=== PATIENT | female | born 1970 | race Caucasian/White ===

== ENCOUNTER → 2016-06-19 | Outpatient (REF) | payer BC ==
[~2016-06-19] MED LIST: /ESCI10TA OR; /PANT40TA OR; /SUCR1TA OR; ALEN70TA39 PO; CALC500T49 OR; CALCCHW12 OR; FERR325T OR; LEVO25TA5 PO; LEVO25TABR OR; LEXA1TAB PO; MULT1TAB10 PO; MULTIVIT PO; OMEP40CA2 PO; PERC5TAB6 PO; POTA10CA2 OR; PRIL40CA OR; PRIL40CA PO; PROZ20CA OR; PYRI100T2 PO; Prenatal Vitamin PO; TUMS500C PO; TYLE1TAB5 PO; VITA1CAP7 PO; VITA500C OR; VITA50TA PO
[2016-06-19 18:00] LABS: BASO # 0.1 K/mm3 (0.0-0.2); BASO % 0.9 % (0.0-1.0); EOS # 0.2 K/mm3 (0.0-0.50); EOS % 3.5 % (0.0-3.0); LARGE UNSTAINED CELL # 0.1 K/mm3 (0.0-0.4); LARGE UNSTAINED CELL % 1.8 % (0.0-4.0); LYMPH # 2.2 K/mm3 (1.5-4.5); LYMPH % 27.7 % (24.0-44.0); MEAN CORPUSCULAR HEMOGLOBIN 30.3 pg (27.0-33.0); MEAN CORPUSCULAR HGB CONC 34.8 g/dl (32.0-36.5); MEAN CORPUSCULAR VOLUME 86.9 fl (80.0-96.0); MONO # 0.5 K/mm3 (0.0-0.8); NEUTROPHILS # 4.3 K/mm3 (1.8-7.7); NEUTROPHILS % 59.1 % (36.0-66.0); PLATELET COUNT, AUTOMATED 293 k/mm3 (150-450); RED CELL DISTRIBUTION WIDTH 12.5 % (11.5-14.5); WHITE BLOOD COUNT 7.3 K/mm3 (4.0-10.0)
[2016-06-19 18:07] LABS: ALBUMIN 4.3 GM/DL (3.2-5.2); ALBUMIN/GLOBULIN RATIO 1.39 (1.00-1.93); ALKALINE PHOSPHATASE 63 U/L (45-117); ALT/SGPT 15 U/L (12-78); ANION GAP 9 MEQ/L (8-16); AST/SGOT 25 U/L (15-37); BILIRUBIN,TOTAL 0.6 MG/DL (0.2-1.0); BLOOD UREA NITROGEN 14 MG/DL (7-18); CALCIUM LEVEL 9.3 MG/DL (8.5-10.1); CARBON DIOXIDE LEVEL 34 MEQ/L (21-32); CHLORIDE LEVEL 93 MEQ/L (98-107); CREATININE FOR GFR 0.66 MG/DL (0.55-1.02); FERRITIN 103 NG/ML (8-252); FREE T4 1.03 NG/DL (0.76-1.46); GLOMERULAR FILTRATION RATE > 60.0 (>58); GLUCOSE, FASTING 97 MG/DL (70-105); PERCENT SATURATION 16.3 % (13.2-37.4); SODIUM LEVEL 136 MEQ/L (136-145); TOTAL IRON BINDING CAPACITY 399 UG/DL (250-450); TOTAL PROTEIN 7.4 GM/DL (6.4-8.2)
[2016-06-19 18:54] LABS: POTASSIUM SERUM 2.8 MEQ/L (3.5-5.1)
== END ==
LOC: M SFHCPLAZ 15:15
PROVIDERS: ATTEND Family Medicine
DX: D50.9 Iron deficiency anemia, unspecified (principal); E55.9 Vitamin D deficiency, unspecified; E03.9 Hypothyroidism, unspecified; Z98.84 Bariatric surgery status

== ENCOUNTER → 2016-06-21 | Outpatient (CLI) | payer BC ==
[2016-06-21 07:38] LABS: ANION GAP 9 MEQ/L (8-16); BLOOD UREA NITROGEN 18 MG/DL (7-18); CALCIUM LEVEL 8.6 MG/DL (8.5-10.1); CARBON DIOXIDE LEVEL 30 MEQ/L (21-32); CHLORIDE LEVEL 101 MEQ/L (98-107); CREATININE FOR GFR 0.62 MG/DL (0.55-1.02); GLOMERULAR FILTRATION RATE > 60.0 (>58); GLUCOSE, FASTING 102 MG/DL (70-105); MAGNESIUM LEVEL 2.4 MG/DL (1.8-2.4); POTASSIUM SERUM 3.3 MEQ/L (3.5-5.1); SODIUM LEVEL 140 MEQ/L (136-145)
== END ==
LOC: M LAB 06:34
PROVIDERS: ATTEND Physician Assistant
DX: E87.6 Hypokalemia (principal)

== ENCOUNTER → 2016-06-28 | Outpatient (REF) | payer BC ==
[~2016-06-28] MED LIST changes: +POTA20TA PO
[2016-06-28 17:35] LABS: ANION GAP 6 MEQ/L (8-16); BLOOD UREA NITROGEN 17 MG/DL (7-18); CALCIUM LEVEL 8.8 MG/DL (8.5-10.1); CARBON DIOXIDE LEVEL 29 MEQ/L (21-32); CHLORIDE LEVEL 102 MEQ/L (98-107); CREATININE FOR GFR 0.55 MG/DL (0.55-1.02); GLOMERULAR FILTRATION RATE > 60.0 (>58); GLUCOSE, FASTING 77 MG/DL (70-105); MAGNESIUM LEVEL 2.6 MG/DL (1.8-2.4); POTASSIUM SERUM 3.9 MEQ/L (3.5-5.1); SODIUM LEVEL 137 MEQ/L (136-145)
== END ==
LOC: M SFHCPLAZ 14:38
PROVIDERS: ATTEND Family Medicine
DX: K27.9 Peptic ulcer, site unspecified, unspecified as acute or chronic, without hemorrhage or perforation (principal); E87.6 Hypokalemia

== ENCOUNTER → 2016-08-19 | Outpatient (REF) | payer BC | LOC: M LAB REF 12:16 | PROVIDERS: ATTEND Family Medicine | DX: L03.114 Cellulitis of left upper limb (principal) ==

== ENCOUNTER → 2016-09-19 | Outpatient (REF) | payer BC ==
[~2016-09-19] MED LIST changes: +PERC5TAB12 PO; -PERC5TAB6 PO
[2016-09-19 19:39] LABS: PERCENT SATURATION 10.8 % (13.2-37.4)
== END ==
LOC: M LAB REF 16:28
PROVIDERS: ATTEND Internal Medicine Medical Oncology
DX: D64.9 Anemia, unspecified (principal)

== ENCOUNTER → 2016-10-25 | Outpatient (REF) | payer BC ==
[2016-10-25 18:18] LABS: BASO # 0.1 K/mm3 (0.0-0.2); BASO % 0.9 % (0.0-1.0); EOS # 0.4 K/mm3 (0.0-0.50); EOS % 4.3 % (0.0-3.0); LARGE UNSTAINED CELL # 0.2 K/mm3 (0.0-0.4); LARGE UNSTAINED CELL % 1.8 % (0.0-4.0); LYMPH # 2.5 K/mm3 (1.5-4.5); LYMPH % 29.4 % (24.0-44.0); MEAN CORPUSCULAR HEMOGLOBIN 31.2 pg (27.0-33.0); MEAN CORPUSCULAR HGB CONC 34.8 g/dl (32.0-36.5); MEAN CORPUSCULAR VOLUME 89.6 fl (80.0-96.0); MONO # 0.4 K/mm3 (0.0-0.8); MONO % 5.1 % (0.0-5.0); NEUTROPHILS # 4.8 K/mm3 (1.8-7.7); NEUTROPHILS % 58.6 % (36.0-66.0); PLATELET COUNT, AUTOMATED 309 k/mm3 (150-450); RED CELL DISTRIBUTION WIDTH 12.6 % (11.5-14.5); WHITE BLOOD COUNT 8.2 K/mm3 (4.0-10.0)
[2016-10-25 19:03] LABS: ALBUMIN 4.5 GM/DL (3.2-5.2); ALBUMIN/GLOBULIN RATIO 1.36 (1.00-1.93); ALKALINE PHOSPHATASE 68 U/L (45-117); ALT/SGPT 15 U/L (12-78); ANION GAP 8 MEQ/L (8-16); AST/SGOT 22 U/L (15-37); BILIRUBIN,TOTAL 0.3 MG/DL (0.2-1.0); BLOOD UREA NITROGEN 13 MG/DL (7-18); CALCIUM LEVEL 8.8 MG/DL (8.5-10.1); CARBON DIOXIDE LEVEL 29 MEQ/L (21-32); CHLORIDE LEVEL 104 MEQ/L (98-107); CREATININE FOR GFR 0.71 MG/DL (0.55-1.02); FERRITIN 52 NG/ML (8-252); GLOMERULAR FILTRATION RATE > 60.0 (>58); GLUCOSE, FASTING 87 MG/DL (70-105); MAGNESIUM LEVEL 2.5 MG/DL (1.8-2.4); PERCENT SATURATION 13.6 % (13.2-45.0); POTASSIUM SERUM 3.8 MEQ/L (3.5-5.1); SODIUM LEVEL 141 MEQ/L (136-145); TOTAL IRON BINDING CAPACITY 434 UG/DL (250-450); TOTAL PROTEIN 7.8 GM/DL (6.4-8.2)
== END ==
LOC: M SFHCPLAZ 15:11
PROVIDERS: ATTEND Family Medicine
DX: R53.83 Other fatigue (principal)

== ENCOUNTER → 2016-12-20 | Outpatient (CLI) | payer BC ==
--- NOTE | 2016-12-20 13:27 | REP ---
Three-phase bone scan of the feet and ankles: History: Stress fracture on the right. Right foot pain. Comparison radiographs June 29, 2016. The patient is status post bunion repair first distal metatarsal. Technique: 22.0 mCi technetium 99m MDP is injected and standard three-phase imaging is acquired. Scintigraphic findings: The anterior and posterior flow study shows some hyperemia on the left forefoot compared to the right mild in degree. Blood pool images show very slightly asymmetric increased soft tissue uptake in the midfoot and MTP joint region on the right. Delayed scan images demonstrate focal areas of increased uptake in the right midfoot at approximately the second tarsometatarsal articulation as well as in the right bunion repair site distal first metatarsal and MTP joint region. There is increased uptake in the left MTP joint of the first digit as well. Impression: There is a focus of increased uptake in the right midfoot at the approximate second metatarsal tarsal articulation level which could be a stress response. Expected uptake in the distal first metatarsal on the right post recent bunion repair. Mild degenerative uptake in the left first MTP joint. Signed by Del Stern MD 12/20/2016 05:21 P
== END ==
LOC: M RAD 07:35
PROVIDERS: ATTEND Podiatrist
DX: M84.374A Stress fracture, right foot, initial encounter for fracture (principal)

== ENCOUNTER → 2017-04-09 | Outpatient (REF) | payer BC ==
[2017-04-09 11:45] LABS: IONIZED CALCIUM 4.6 MG/DL (4.5-5.3)
[2017-04-09 12:13] LABS: C REACTIVE PROTEIN QUANTITATIV < 0.30 MG/DL (0.00-0.30)
[2017-04-09 12:17] LABS: ERYTHROCYTE SEDIMENTATION RATE 7 mm/hr (0-20)
[2017-04-09 12:28] LABS: PTH INTACT 115.2 PG/ML (14.0-72.0)
== END ==
LOC: M SFHCPLAZ 11:32
DX: E34.9 Endocrine disorder, unspecified (principal); R51 Headache
CPT/HCPCS: 82330

== ENCOUNTER → 2017-04-09 | Outpatient (CLI) | payer BC | LOC: M RAD 18:01 | DX: R51 Headache (principal) | CPT/HCPCS: 70551 ==

== ENCOUNTER → 2017-04-10 | Outpatient (REF) | payer BC ==
[2017-04-10 10:54] LABS: BASO # 0.1 10^3/uL (0.0-0.2); BASO % 0.6 % (0.0-1.0); EOS # 0.1 10^3/uL (0.0-0.50); HEMATOCRIT 40.4 % (36.0-47.0); HEMOGLOBIN 13.7 g/dl (12.0-16.0); IMMATURE GRANULOCYTE % 0.3 % (0-0); LYMPH # 1.9 10^3/uL (1.5-4.5); LYMPH % 21.1 % (24.0-44.0); MEAN CORPUSCULAR HEMOGLOBIN 30.4 pg (27.0-33.0); MEAN CORPUSCULAR HGB CONC 33.9 g/dl (32.0-36.5); MEAN CORPUSCULAR VOLUME 89.6 fl (80.0-96.0); MONO # 0.5 10^3/uL (0.0-0.8); MONO % 5.9 % (0.0-5.0); NEUTROPHILS # 6.4 10^3/uL (1.8-7.7); NEUTROPHILS % 71.1 % (36.0-66.0); PLATELET COUNT, AUTOMATED 316 10^3/uL (150-450); RED BLOOD COUNT 4.51 10^6/uL (4.00-5.40); RED CELL DISTRIBUTION WIDTH 12.1 % (11.5-14.5); WHITE BLOOD COUNT 8.9 10^3/uL (4.0-10.0)
[2017-04-10 11:31] LABS: ALBUMIN 4.3 GM/DL (3.2-5.2); ALBUMIN/GLOBULIN RATIO 1.34 (1.00-1.93); ALKALINE PHOSPHATASE 64 U/L (45-117); ALT/SGPT 13 U/L (12-78); ANION GAP 7 MEQ/L (8-16); AST/SGOT 17 U/L (7-37); BILIRUBIN,TOTAL 0.5 MG/DL (0.2-1.0); BLOOD UREA NITROGEN 8 MG/DL (7-18); CALCIUM LEVEL 9.5 MG/DL (8.5-10.1); CARBON DIOXIDE LEVEL 29 MEQ/L (21-32); CHLORIDE LEVEL 104 MEQ/L (98-107); CHOLESTEROL LEVEL 224 MG/DL (<200); CHOLESTEROL RISK RATIO 2.765 (<5); CREATININE FOR GFR 0.54 MG/DL (0.55-1.02); ESTIMATED AVERAGE GLUCOSE 103 MG/DL (60-110); FERRITIN 31 NG/ML (8-252); FREE T4 0.95 NG/DL (0.76-1.46); GLOMERULAR FILTRATION RATE > 60.0 (>58); GLUCOSE, FASTING 84 MG/DL (70-100); HDL CHOLESTEROL 81 MG/DL (>40); HEMOGLOBIN A1c 5.2 %; IRON (FE) 85 UG/DL (50-170); LDL CHOLESTEROL 128.6 MG/DL (<100); MAGNESIUM LEVEL 2.4 MG/DL (1.8-2.4); NON-HDL-C 143 MG/DL; POTASSIUM SERUM 3.9 MEQ/L (3.5-5.1); SODIUM LEVEL 140 MEQ/L (136-145); TOTAL IRON BINDING CAPACITY 405 UG/DL (250-450); TOTAL PROTEIN 7.5 GM/DL (6.4-8.2); TRIGLYCERIDES LEVEL 72 MG/DL (<150)
[2017-04-10 12:15] LABS: PTH INTACT 65.1 PG/ML (14.0-72.0); TOTAL 25(OH) VITAMIN D 33.8 NG/ML (30.0-100.0)
== END ==
LOC: M SFHCPLAZ 09:26
DX: D50.9 Iron deficiency anemia, unspecified (principal); E87.6 Hypokalemia; E03.9 Hypothyroidism, unspecified; E55.9 Vitamin D deficiency, unspecified; E34.9 Endocrine disorder, unspecified; R51 Headache; Z98.84 Bariatric surgery status
CPT/HCPCS: 83550

== ENCOUNTER → 2017-07-22 | Outpatient (REF) | payer BC ==
[2017-07-22 19:30] LABS: BASO # 0.1 10^3/uL (0.0-0.2); BASO % 0.7 % (0.0-1.0); EOS # 0.2 10^3/uL (0.0-0.50); EOS % 2.6 % (0.0-3.0); HEMOGLOBIN 12.4 g/dl (12.0-15.5); IMMATURE GRANULOCYTE % 0.4 % (0-3.0); LYMPH # 2.5 10^3/uL (1.5-4.5); LYMPH % 30.6 % (24.0-44.0); MEAN CORPUSCULAR HEMOGLOBIN 30.8 pg (27.0-33.0); MEAN CORPUSCULAR HGB CONC 33.5 g/dl (32.0-36.5); MEAN CORPUSCULAR VOLUME 91.8 fl (80.0-96.0); MONO # 0.6 10^3/uL (0.0-0.8); MONO % 7.2 % (0.0-5.0); NEUTROPHILS # 4.7 10^3/uL (1.8-7.7); NEUTROPHILS % 58.5 % (36.0-66.0); PLATELET COUNT, AUTOMATED 297 10^3/uL (150-450); RED BLOOD COUNT 4.03 10^6/uL (4.00-5.40); RED CELL DISTRIBUTION WIDTH 12.8 % (11.5-14.5); WHITE BLOOD COUNT 8.1 10^3/uL (4.0-10.0)
[2017-07-22 19:31] LABS: ALBUMIN 4.1 GM/DL (3.2-5.2); ALBUMIN/GLOBULIN RATIO 1.41 (1.00-1.93); ALKALINE PHOSPHATASE 68 U/L (45-117); ALT/SGPT 12 U/L (12-78); AMYLASE 53 U/L (25-115); ANION GAP 4 MEQ/L (8-16); AST/SGOT 20 U/L (7-37); BILIRUBIN,DIRECT 0.1 MG/DL (0.0-0.2); BILIRUBIN,TOTAL 0.3 MG/DL (0.2-1.0); BLOOD UREA NITROGEN 15 MG/DL (7-18); CALCIUM LEVEL 8.7 MG/DL (8.5-10.1); CARBON DIOXIDE LEVEL 29 MEQ/L (21-32); CHLORIDE LEVEL 111 MEQ/L (98-107); CREATININE FOR GFR 0.56 MG/DL (0.55-1.30); GAMMA GLUTAMYLTRANSPEPTIDASE 23 U/L (5-55); GLOMERULAR FILTRATION RATE > 60.0 (>58); GLUCOSE, FASTING 84 MG/DL (70-100); LIPASE 193 U/L (73-393); POTASSIUM SERUM 4.2 MEQ/L (3.5-5.1); SODIUM LEVEL 144 MEQ/L (136-145)
== END ==
LOC: M SFHCPLAZ 15:42
DX: K27.9 Peptic ulcer, site unspecified, unspecified as acute or chronic, without hemorrhage or perforation (principal); R10.11 Right upper quadrant pain
CPT/HCPCS: 82150

== ENCOUNTER → 2017-08-02 | Outpatient (CLI) | payer BC | LOC: M RAD 06:45 | DX: R10.11 Right upper quadrant pain (principal); R07.81 Pleurodynia | CPT/HCPCS: 71046 ==

== ENCOUNTER → 2017-08-21 | Outpatient (CLI) | payer BC | LOC: M RAD 08:02 | DX: K81.9 Cholecystitis, unspecified (principal) | CPT/HCPCS: J2805 ==

== ENCOUNTER → 2017-09-10 | Outpatient (CLI) | payer BC ==
[~2017-09-10] MED LIST changes: -/ESCI10TA OR; -/PANT40TA OR; -/SUCR1TA OR; -ALEN70TA39 PO; -CALC500T49 OR; -CALCCHW12 OR; -FERR325T OR; +GASTROGRAFIN SOLUTION 30ML (Q9963) As Ordered; +ISOVUE-370 76% 100ML VIAL (Q9967) As Ordered; -LEVO25TA5 PO; -LEVO25TABR OR; -LEXA1TAB PO; -MULT1TAB10 PO; -MULTIVIT PO; -OMEP40CA2 PO; -PERC5TAB12 PO; -POTA10CA2 OR; -POTA20TA PO; -PRIL40CA OR; -PRIL40CA PO; -PROZ20CA OR; -PYRI100T2 PO; -Prenatal Vitamin PO; -TUMS500C PO; -TYLE1TAB5 PO; -VITA1CAP7 PO; -VITA500C OR; -VITA50TA PO
== END ==
LOC: M RAD 07:45
DX: K27.9 Peptic ulcer, site unspecified, unspecified as acute or chronic, without hemorrhage or perforation (principal)
CPT/HCPCS: Q9963

== ENCOUNTER 2017-12-12 07:48 | Day surgery (SDC) | payer BC ==
[~2017-12-12 07:48] MED LIST changes: -GASTROGRAFIN SOLUTION 30ML (Q9963) As Ordered; -ISOVUE-370 76% 100ML VIAL (Q9967) As Ordered; +LIDOCAINE 2% INJ 100 MG/5 ML SDV (FOR ANES.) As Ordered; +NS 1,000 ML IV; +PROPOFOL 200 MG/20 ML VIAL As Ordered
[2017-12-12] MEDS ORDERED: fentaNYL 100 MCG/2 ML INJECTION (J3010) As Ordered (08:42)
[2017-12-12] MEDS ORDERED: METOCLOPRAMIDE INJ 10MG/2ML VIAL (J2765) As Ordered (08:51)
== END 2017-12-12 09:22 | disposition home or self-care (01) ==
LOC: M OPP 07:48
DX: R13.10 Dysphagia, unspecified (principal); R10.13 Epigastric pain; R11.0 Nausea; Z98.84 Bariatric surgery status; Z98.0 Intestinal bypass and anastomosis status; E03.9 Hypothyroidism, unspecified; K92.2 Gastrointestinal hemorrhage, unspecified; K25.9 Gastric ulcer, unspecified as acute or chronic, without hemorrhage or perforation; K21.9 Gastro-esophageal reflux disease without esophagitis; R12 Heartburn; D64.9 Anemia, unspecified; Z86.14 Personal history of Methicillin resistant Staphylococcus aureus infection; F32.9 Major depressive disorder, single episode, unspecified; F41.9 Anxiety disorder, unspecified; G43.909 Migraine, unspecified, not intractable, without status migrainosus; J45.909 Unspecified asthma, uncomplicated; R06.83 Snoring; Z88.8 Allergy status to other drugs, medicaments and biological substances; Z91.048 Other nonmedicinal substance allergy status; Z79.899 Other long term (current) drug therapy
CPT/HCPCS: 43235

== ENCOUNTER → 2018-01-23 | Outpatient (CLI) | payer BC ==
[2018-01-23 10:34] LABS: BASO # 0.1 10^3/uL (0.0-0.2); BASO % 0.6 % (0.0-1.0); EOS # 0.2 10^3/uL (0.0-0.50); HEMATOCRIT 39.3 % (36.0-47.0); HEMOGLOBIN 12.9 g/dl (12.0-15.5); IMMATURE GRANULOCYTE % 0.3 % (0-3.0); LYMPH % 25.3 % (24.0-44.0); MEAN CORPUSCULAR HEMOGLOBIN 29.9 pg (27.0-33.0); MEAN CORPUSCULAR HGB CONC 32.8 g/dl (32.0-36.5); MEAN CORPUSCULAR VOLUME 91.2 fl (80.0-96.0); MONO # 0.5 10^3/uL (0.0-0.8); MONO % 6.4 % (0.0-5.0); NEUTROPHILS % 64.4 % (36.0-66.0); PLATELET COUNT, AUTOMATED 286 10^3/uL (150-450); RED BLOOD COUNT 4.31 10^6/uL (4.00-5.40); RED CELL DISTRIBUTION WIDTH 12.5 % (11.5-14.5); WHITE BLOOD COUNT 7.8 10^3/uL (4.0-10.0)
[2018-01-23 11:30] LABS: ALBUMIN/GLOBULIN RATIO 1.43 (1.00-1.93); ALKALINE PHOSPHATASE 65 U/L (45-117); ALT/SGPT 15 U/L (12-78); ANION GAP 7 MEQ/L (8-16); AST/SGOT 20 U/L (7-37); BILIRUBIN,TOTAL 0.5 MG/DL (0.2-1.0); BLOOD UREA NITROGEN 14 MG/DL (7-18); CALCIUM LEVEL 8.9 MG/DL (8.5-10.1); CARBON DIOXIDE LEVEL 26 MEQ/L (21-32); CHLORIDE LEVEL 106 MEQ/L (98-107); CHOLESTEROL LEVEL 233 MG/DL (<200); CHOLESTEROL RISK RATIO 3.328 (<5); CREATININE FOR GFR 0.61 MG/DL (0.55-1.30); FERRITIN 16 NG/ML (8-252); FREE T4 0.82 NG/DL (0.76-1.46); GLOMERULAR FILTRATION RATE > 60.0 (>58); GLUCOSE, FASTING 93 MG/DL (70-100); HDL CHOLESTEROL 70 MG/DL (>40); IRON (FE) 97 UG/DL (50-170); LDL CHOLESTEROL 141 MG/DL (<100); NON-HDL-C 163 MG/DL; PERCENT SATURATION 23.2 % (13.2-45.0); POTASSIUM SERUM 4.3 MEQ/L (3.5-5.1); PTH INTACT 128.6 PG/ML (18.5-88.0); SODIUM LEVEL 139 MEQ/L (136-145); TOTAL 25(OH) VITAMIN D 23.3 NG/ML (30.0-100.0); TOTAL IRON BINDING CAPACITY 418 UG/DL (250-450); TOTAL PROTEIN 6.8 GM/DL (6.4-8.2); TRIGLYCERIDES LEVEL 110 MG/DL (<150); VITAMIN B12 LEVEL 518 PG/ML
== END ==
LOC: M LAB 09:39
DX: D50.9 Iron deficiency anemia, unspecified (principal); E55.9 Vitamin D deficiency, unspecified; Z98.84 Bariatric surgery status
CPT/HCPCS: 82746

== ENCOUNTER → 2018-06-05 | Outpatient (CLI) | payer BC ==
[~2018-06-05] MED LIST changes: +/ESCI10TA OR; +/PANT40TA OR; +/SUCR1TA OR; +ALEN70TA57 PO; +CALC500T49 OR; +CALCCHW12 OR; +DULO1CAP PO; +E-Z-GAS II EFFERVESCENT PACKET (SODIUM BICARB./CITRIC ACID/SIMETHICONE) As Ordered ONE; +E-Z-HD 98% w/w 340GM SUSP BTL As Ordered ONE; +E-Z-PAQUE 96% w/w SUSP 176GM BTL As Ordered ONE; +FERR325T OR; +KLOR20TA42 PO; +LEVO25TA5 PO; +LEVO25TABR OR; +LEVO50TA5 PO; +LEXA1TAB PO; +LEXA1TAB2 PO; -LIDOCAINE 2% INJ 100 MG/5 ML SDV (FOR ANES.) As Ordered; +MULT1TAB10 PO; +MULTIVIT PO; -NS 1,000 ML IV; +OMEP40CA2 PO; +PERC5TAB12 PO; +POTA10CA2 OR; +PRIL40CA OR; +PRIL40CA PO; -PROPOFOL 200 MG/20 ML VIAL As Ordered; +PROZ20CA OR; +PYRI100T2 PO; +Prenatal Vitamin PO; +TOPI25TA10 PO; +TUMS500C PO; +TYLE1TAB5 PO; +VENTAER; +VITA1CAP7 PO; +VITA500C OR; +VITA50TA47 PO
== END ==
LOC: M RAD 10:59
PROVIDERS: ATTEND Surgery
DX: R13.10 Dysphagia, unspecified (principal)

== ENCOUNTER → 2018-06-05 | Outpatient (CLI) | payer BC ==
[~2018-06-05] MED LIST changes: -E-Z-GAS II EFFERVESCENT PACKET (SODIUM BICARB./CITRIC ACID/SIMETHICONE) As Ordered ONE; -E-Z-HD 98% w/w 340GM SUSP BTL As Ordered ONE; -E-Z-PAQUE 96% w/w SUSP 176GM BTL As Ordered ONE
[2018-06-05 12:15] LABS: BASO # 0.1 10^3/uL (0.0-0.2); BASO % 0.9 % (0.0-1.0); EOS # 0.1 10^3/uL (0.0-0.50); EOS % 1.7 % (0.0-3.0); HEMATOCRIT 40.2 % (36.0-47.0); HEMOGLOBIN 13.4 g/dl (12.0-15.5); LYMPH # 1.8 10^3/uL (1.5-4.5); LYMPH % 30.7 % (24.0-44.0); MEAN CORPUSCULAR HEMOGLOBIN 29.8 pg (27.0-33.0); MEAN CORPUSCULAR HGB CONC 33.3 g/dl (32.0-36.5); MEAN CORPUSCULAR VOLUME 89.5 fl (80.0-96.0); MONO # 0.4 10^3/uL (0.0-0.8); MONO % 6.9 % (0.0-5.0); NEUTROPHILS # 3.5 10^3/uL (1.8-7.7); NEUTROPHILS % 59.6 % (36.0-66.0); PLATELET COUNT, AUTOMATED 303 10^3/uL (150-450); RED BLOOD COUNT 4.49 10^6/uL (4.00-5.40); WHITE BLOOD COUNT 5.8 10^3/uL (4.0-10.0)
[2018-06-05 12:47] LABS: ALBUMIN 3.9 GM/DL (3.2-5.2); ALT/SGPT 10 U/L (12-78); BILIRUBIN,TOTAL 0.6 MG/DL (0.2-1.0); BLOOD UREA NITROGEN 14 MG/DL (7-18); CALCIUM LEVEL 8.6 MG/DL (8.5-10.1); CARBON DIOXIDE LEVEL 24 MEQ/L (21-32); CHLORIDE LEVEL 112 MEQ/L (98-107); CREATININE FOR GFR 0.65 MG/DL (0.55-1.30); FERRITIN 22 NG/ML (8-252); FREE T4 0.92 NG/DL (0.76-1.46); GLOMERULAR FILTRATION RATE > 60.0 (>58); GLUCOSE, FASTING 88 MG/DL (70-100); IRON (FE) 68 UG/DL (50-170); MAGNESIUM LEVEL 2.3 MG/DL (1.8-2.4); PERCENT SATURATION 15.6 % (13.2-45.0); SODIUM LEVEL 144 MEQ/L (136-145); TOTAL IRON BINDING CAPACITY 436 UG/DL (250-450); TOTAL PROTEIN 6.7 GM/DL (6.4-8.2)
[2018-06-05 12:50] LABS: PTH INTACT 74.2 PG/ML (18.5-88.0); TOTAL 25(OH) VITAMIN D 37.5 NG/ML (30.0-100.0)
--- NOTE | 2018-06-06 14:00 | REP ---
Requested: Upper G.I. Series With KUB Reason For Patient Visit: Dysphasia Reason For Exam: Dysphagia Upper GI Air Contrast The procedure was performed under the personal supervision of Dr. Stern . The images were reviewed with Dr. Stern . The patient admitting clerk film shows normal organomegaly or pathological masses. The intestinal gas pattern appears normal. Liquid barium and gas producing crystals were given tissue in the erect position as well as liquid barium in the prone position in order to perform a double contrast upper GI examination. During the oral and pharyngeal stages of deglutition laryngeal penetration was noted. Esophageal transport is efficient and there is no esophagitis, stricture, or mucosal ring noted, however tertiary contractions were noted . 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 The gastric jejunal ostomy is patent, no evidence of stricture or ulceration. The barium column was followed through the small bowel to the level of the terminal ileum. Small bowel transit time was approximately 30 minutes. Gentle palpation shows all loops were freely movable and pliable. There are no fixed or angulated loops. The small bowel mucosal pattern is normal in course and caliber. There is no transition to suggest partial small bowel obstruction. Spot filming of the terminal ileum shows no abnormality . Impression: 1. Laryngeal penetration 2. Tertiary contractions .3 minutes of fluoroscopy time was utilized for this procedure. Reviewed by MARGE Esquivel 06/06/2018 01:44 P Electronically Signed by Del Stern MD 06/06/2018 01:52 P
== END ==
LOC: M LAB 11:02
PROVIDERS: ATTEND Family Medicine
DX: D50.9 Iron deficiency anemia, unspecified (principal); E87.6 Hypokalemia; E03.9 Hypothyroidism, unspecified; E55.9 Vitamin D deficiency, unspecified; K27.9 Peptic ulcer, site unspecified, unspecified as acute or chronic, without hemorrhage or perforation

== ENCOUNTER → 2018-06-09 | Outpatient (REF) | payer BC ==
[2018-06-09 12:18] LABS: CPK CREATINE PHOSPHOKINASE 81 U/L (26-192)
[2018-06-11 00:08] LABS: ANTI-SMOOTH MUSCLE ANTIBODY 11 Units (0-19); Lyme Disease IgG/IgM Antibodie <0.91 ISR (0.00-0.90); Lyme Disease IgM Ab Quantitati <0.80 index (0.00-0.79)
== END ==
LOC: M SFHCPLAZ 09:50
PROVIDERS: ATTEND Nurse Practitioner Family
DX: R13.12 Dysphagia, oropharyngeal phase (principal)

== ENCOUNTER → 2018-06-13 | Outpatient (CLI) | payer BC ==
--- NOTE | 2018-06-13 14:35 | NUR ---
Pt referred for MBSS this date d/t c/o difficulty swallowing w/ globus sensation and gagging episodes. Pt s/p open gastric bypass surgery. Upper GI 06/06/18 evidenced laryngeal penetration and tertiary contractions. No evidence or oropharyngeal dysphagia observed on exam. No aspiration or penetration noted. Pt did c/o globus sensation during PO intake; persistent throat clearing and coughing did not relieve this sensation. It is possible that a portion of the bolus remained in the laryngeal region but that the concentration of barium was not sufficient for visibility on x-ray. This sensation only occurred with the mixed fruit consistency and no residue, penetration, or aspiration was noted. Clinician attempted to implement compensatory liquid wash, effortful swallow, puree swallow, and chin tuck to clear any possible residue but this did not relieve pt's sensation of irritation. All other consistencies were cleared w/o difficulty. Pt described an "irritated throat" and stated that this feeling sometimes "spreads to the ear." Recommend regular diet, thin liquids. Alternate liquids and solids. Recommend ENT consult to assess structural integrity. Addendum: 06/13/[address] [facility] Amended: Links added.
--- NOTE | 2018-06-16 07:58 | REP ---
COOKIE SWALLOW The procedure was performed under the direct supervision of Dr. Stern. The procedure was performed with Rosy Marsh from speech pathology present. 5 CC aliquots of thin, pudding, mixed fruit, soft food, and solid consistency barium was administered. There is no evidence of penetration or aspiration. The detailed report of this examination will be provided by speech pathology. 1.9 minutes of fluoroscopy time was utilized for this procedure. Reviewed by MARGE Li 06/13/2018 04:34 P Electronically Signed by Del Stern MD 06/16/2018 07:49 A
== END ==
LOC: M ST 11:45
PROVIDERS: ATTEND Nurse Practitioner Family
DX: R13.12 Dysphagia, oropharyngeal phase (principal)

== ENCOUNTER → 2018-09-25 | Outpatient (REF) | payer BC ==
[~2018-09-25] MED LIST changes: -/ESCI10TA OR; -/PANT40TA OR; -/SUCR1TA OR; +ACET25TA12 PO; -ALEN70TA57 PO; +ALEN70TA74 PO; +ASPI325T47 PO; +D-3-50003 PO; -DULO1CAP PO; +DULO1CAP4 PO; +DULO30CA47 PO; +LEXA1TAB OR; -OMEP40CA2 PO; +OMEP40CA97 PO; +PROT1TAB2 OR; -PYRI100T2 PO; +SUCR1TAB56 OR; -VENTAER; +VENTAER INH; +VITA100T82 PO; -VITA1CAP7 PO
[2018-09-25 18:51] LABS: ALBUMIN 4.2 GM/DL (3.2-5.2); ALT/SGPT 14 U/L (12-78); BILIRUBIN,TOTAL 0.4 MG/DL (0.2-1.0); BLOOD UREA NITROGEN 21 MG/DL (7-18); CALCIUM LEVEL 8.5 MG/DL (8.5-10.1); CARBON DIOXIDE LEVEL 24 MEQ/L (21-32); CHLORIDE LEVEL 109 MEQ/L (98-107); CREATININE FOR GFR 0.82 MG/DL (0.55-1.30); GLOMERULAR FILTRATION RATE > 60.0 (>58); GLUCOSE, FASTING 74 MG/DL (70-100); POTASSIUM SERUM 3.7 MEQ/L (3.5-5.1); SODIUM LEVEL 142 MEQ/L (136-145); TOTAL PROTEIN 7.4 GM/DL (6.4-8.2)
[2018-09-25 19:07] LABS: BASO # 0.1 10^3/uL (0.0-0.2); EOS # 0.2 10^3/uL (0.0-0.50); EOS % 2.9 % (0.0-3.0); HEMATOCRIT 41.8 % (36.0-47.0); HEMOGLOBIN 13.8 g/dl (12.0-15.5); LYMPH # 2.2 10^3/uL (1.5-4.5); LYMPH % 26.3 % (24.0-44.0); MEAN CORPUSCULAR HEMOGLOBIN 29.9 pg (27.0-33.0); MEAN CORPUSCULAR VOLUME 90.7 fl (80.0-96.0); MONO # 0.5 10^3/uL (0.0-0.8); MONO % 6.5 % (0.0-5.0); NEUTROPHILS # 5.2 10^3/uL (1.8-7.7); NEUTROPHILS % 62.9 % (36.0-66.0); PLATELET COUNT, AUTOMATED 351 10^3/uL (150-450); RED BLOOD COUNT 4.61 10^6/uL (4.00-5.40); WHITE BLOOD COUNT 8.3 10^3/uL (4.0-10.0)
== END ==
LOC: M SFHCPLAZ 14:37
PROVIDERS: ATTEND Nurse Practitioner Family
DX: R42 Dizziness and giddiness (principal); E03.9 Hypothyroidism, unspecified; R30.0 Dysuria

== ENCOUNTER → 2018-12-09 | Outpatient (CLI) | payer BC ==
[~2018-12-09] MED LIST changes: -ACET25TA12 PO; -ASPI325T47 PO; -DULO30CA47 PO; +OMEP40CA2 PO; -OMEP40CA97 PO; +PYRI100T2 PO; +VENTAER; -VENTAER INH; -VITA100T82 PO
--- NOTE | 2018-12-09 15:46 | REPMRS ---
Patient History The patient states she has not had a clinical breast exam in over a year. Family history of breast cancer at age 60 in maternal grandmother, breast cancer at age 50 in maternal aunt. 3D TOMOSYNTHESIS WAS PERFORMED. The Dilshad Sorto lifetime risk for breast cancer is 14.3%. Digital Woman Screen Mammo: December 09, 2018 - Exam #: [id number] Bilateral CC and MLO view(s) were taken. Technologist: Anum Beauchamp Technologist Prior study comparison: February 02, 2016, digital woman screen mammo performed at [facility]. March 23, 2014, digital woman screen mammo performed at [facility]. FINDINGS: The breast tissue is heterogeneously dense. This may lower the sensitivity of mammography. There has been no change in the appearance of the mammogram from the prior studies. There is a moderate amount of residual fibroglandular tissue which is fairly symmetric. There is no interval development of dominant mass, areas of architectural distortion, or clustered microcalcification typical of malignancy. Assessment: BI-RADS/ACR category 1 mammogram. Negative Mammogram. Recommendation Routine screening mammogram in 1 year (for women over age 40). This mammogram was interpreted with the aid of an FDA-approved computer-aided dectection system. Electronically Signed By: Ivan Rico MD 12/09/18 [id number]
--- NOTE | 2018-12-11 15:46 | DEXA ---
AP SPINE L1 - L4 1.311 0.9 1.3 LT FEMUR TOTAL 1.051 0.3 0.8 LT NECK 1.039 0.0 0.8 RT FEMUR TOTAL 0.995 -0.1 0.3 RT NECK 1.087 0.4 1.1 TOTAL BODY TOTAL OTHER COMMENTS: Normal bone densitometry of the spine and hips. The density of the spine has increased 0.8% since 03/23/2014. The density of the left hip has increased 1.2% since 03/23/2014. The density of the right hip has decreased 2.9% since 03/23/2014. FOLLOW-UP: Recommendation for the next bone density exam: 5 years. FAN
== END ==
LOC: M WHC 14:56
PROVIDERS: ATTEND Family Medicine
DX: Z12.31 Encounter for screening mammogram for malignant neoplasm of breast (principal)

== ENCOUNTER 2019-01-06 07:24 | Emergency (ER) | payer BC ==
[~2019-01-06] VITALS: Ht 167.6 cm; Wt 89.7 kg
[~2019-01-06 07:24] MED LIST changes: -OMEP40CA2 PO; +OMEP40CA97 PO; -VENTAER; +VENTAER INH
[2019-01-06] MEDS ORDERED: TOPI25TA10 PO (07:39)
[2019-01-06 08:10] LABS: BASO # 0.1 10^3/uL (0.0-0.2); BASO % 1.1 % (0.0-1.0); EOS # 0.2 10^3/uL (0.0-0.5); EOS % 2.4 % (0.0-3.0); HEMATOCRIT 39.6 % (36.0-47.0); HEMOGLOBIN 12.7 g/dl (12.0-15.5); LYMPH # 1.7 10^3/uL (1.5-5.0); LYMPH % 24.9 % (24.0-44.0); MEAN CORPUSCULAR HEMOGLOBIN 29.7 pg (27.0-33.0); MEAN CORPUSCULAR HGB CONC 32.1 g/dl (32.0-36.5); MEAN CORPUSCULAR VOLUME 92.5 fl (80.0-96.0); MONO # 0.5 10^3/uL (0.0-0.8); MONO % 6.9 % (0.0-5.0); NEUTROPHILS # 4.3 10^3/uL (1.5-8.5); NEUTROPHILS % 64.4 % (36.0-66.0); PLATELET COUNT, AUTOMATED 320 10^3/uL (150-450); RED BLOOD COUNT 4.28 10^6/uL (4.00-5.40); WHITE BLOOD COUNT 6.6 10^3/uL (4.0-10.0)
[2019-01-06 08:21] LABS: INR 0.99; PROTHROMBIN TIME 12.8 SECONDS (11.8-14.0)
[2019-01-06 08:22] LABS: PARTIAL THROMBOPLASTIN TIME 26.6 SECONDS (25.0-38.4)
--- NOTE | 2019-01-06 08:25 | REP ---
Clinical: Chest pain . Comparison: 08/02/2017 . Findings: The mediastinum and cardiac silhouette are stable and within normal limits for portable technique. The lung acuña are clear without acute consolidation, effusion, or pneumothorax. Skeletal structures are intact. Impression: No acute cardiopulmonary process appreciated. Electronically Signed by Tang Hardin MD 01/06/2019 08:16 A
[2019-01-06] MEDS ORDERED: ACET25TA12 PO (08:27)
[2019-01-06] MEDS ORDERED: DULO30CA47 PO (08:27)
--- NOTE | 2019-01-06 08:32 | REP ---
CT brain: 01/06/2019. Indication: Stroke. Comparison: None. Technique: Unenhanced axial CT images of the brain were obtained from skull base to vertex. Findings: There is no acute intracranial hemorrhage, acute cortical infarction, mass effect or hydrocephalous. Mild diffuse volume loss is present. Impression: No acute intracranial process. Electronically Signed by Patrick Alcocer DO 01/06/2019 08:23 A
[2019-01-06 08:36] LABS: ALBUMIN 3.7 GM/DL (3.2-5.2); ALT/SGPT 14 U/L (12-78); BILIRUBIN,DIRECT < 0.1 MG/DL (0.0-0.2); BILIRUBIN,TOTAL 0.4 MG/DL (0.2-1.0); BLOOD UREA NITROGEN 12 MG/DL (7-18); CALCIUM LEVEL 8.7 MG/DL (8.5-10.1); CARBON DIOXIDE LEVEL 23 MEQ/L (21-32); CHLORIDE LEVEL 114 MEQ/L (98-107); CPK CREATINE PHOSPHOKINASE 123 U/L (26-192); CREATININE FOR GFR 0.76 MG/DL (0.55-1.30); FREE T4 0.79 NG/DL (0.76-1.46); GLOMERULAR FILTRATION RATE > 60.0 (>58); GLUCOSE, FASTING 100 MG/DL (70-100); LIPASE 176 U/L (73-393); MB/CK RELATIVE INDEX 0.81 (< OR =4); POTASSIUM SERUM 3.9 MEQ/L (3.5-5.1); SODIUM LEVEL 142 MEQ/L (136-145); TOTAL PROTEIN 7.1 GM/DL (6.4-8.2); TROPONIN I < 0.02 NG/ML (< 0.10)
[2019-01-06] MEDS ORDERED: ISOVUE-370 76% 100ML VIAL (Q9967) As Ordered ONE (08:48)
--- NOTE | 2019-01-06 09:57 | REP ---
Extracranial CTA: 01/06/2019. Indication: Stroke. Comparison: None. Technique: Axial images of the extracranial circulation were obtained with coronal and sagittal as well as 3-D reconstructions provided. 100 ml IV Isovue 370 were administered. Findings: There is no extracranial hemodynamically significant ICA stenosis by NASCET criteria. The great vessels originate in the expected anatomic fashion from the aortic arch. The vertebral arteries are patent. The visualized lungs are clear. Impression: No hemodynamically significant extracranial ICA stenosis or additional abnormalities of the extracranial carotid or vertebral arteries. Electronically Signed by Patrick Alcocer DO 01/06/2019 09:48 A
[2019-01-06 09:58] LABS: APPEARANCE, URINE HAZY (CLEAR); BACTERIA, URINE AUTO 1+ (NEGATIVE); BILIRUBIN, URINE AUTO NEGATIVE (NEGATIVE); BLOOD, URINE BLOOD NEGATIVE (NEGATIVE); COLOR, URINE YELLOW (YELLOW); GLUCOSE, URINE (UA) AUTO NEGATIVE (NEGATIVE); KETONE, URINE AUTO NEGATIVE (NEGATIVE); LEUKOCYTE ESTERASE, URINE AUTO NEGATIVE (NEGATIVE); MUCUS, URINE SMALL (NEGATIVE); NITRITE, URINE AUTO POSITIVE (NEGATIVE); PROTEIN, URINE AUTO NEGATIVE (NEGATIVE); RBC, URINE AUTO 1 /HPF (0-3); SPECIFIC GRAVITY URINE AUTO 1.023 (1.002-1.035); SQUAMOUS EPITHELIAL CELL UR AU 1 /HPF (0-6); UROBILINOGEN, URINE AUTO 0.2 mg/dL (0.0-2.0); WBC, URINE AUTO 3 /HPF (0-3)
--- NOTE | 2019-01-06 10:10 | REP ---
CT ANGIOGRAM CHEST: TECHNIQUE: Axial contrast enhanced images from the thoracic inlet to the upper abdomen using 100 mL Isovue 370 intravenous contrast material with multiplanar reformations. There is no CT evidence of dissection of the thoracic aorta. Thoracic aorta is normal in caliber. Heart is normal in size. There is no mediastinal, hilar or chest wall lymphadenopathy. There is no pleural or pericardial effusion. The lungs demonstrate no infiltrate. There are mild diffuse degenerative changes of the spine. The patient appears to have had prior gastric bypass surgery. IMPRESSION: No evidence of dissection of the thoracic aorta. No acute finding. Electronically Signed by Ivan Rico MD 01/07/2019 11:42 A
--- NOTE | 2019-01-06 10:28 | ECGEPIP ---
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
--- NOTE | 2019-01-06 10:59 | REP ---
MRI brain: 01/06/2019. Indication: Stroke. Comparison: 04/09/2017. Technique: Multiplanar short and long TR sequences of the brain were performed without IV Gadolinium. Findings: There are no areas of restricted diffusion. There is no intracranial mass effect or hydrocephalous. A few punctate foci of elevated white matter T2 signal are redemonstrated. The large intracranial flow voids are unremarkable. The midline structures, and craniocervical junction are also unremarkable. There is no evidence of intracranial hemorrhage. Impression: No acute intracranial process. A few punctate nonspecific foci of abnormal white matter signal which may represent early sequelae of chronic microangiopathic ischemic disease in the correct clinical setting. Hypertension? Diabetes? Electronically Signed by Patrick Alcocer DO 01/06/2019 10:51 A
--- NOTE | 2019-01-06 11:04 | REP ---
Intracranial MRA: 01/06/2019. Indication: Stroke. Comparison: None. Findings: There is no intracranial high-grade vascular stenosis, occlusion, aneurysm or AVM. Predominantly origin of the left NATURAL HISTORY COLLECTIONS CURATOR with an associated diminutive left P1 segment is present. Impression: No intracranial high-grade stenosis or vessel occlusion. Electronically Signed by Patrick Alcocer DO 01/06/2019 10:55 A
[2019-01-06] MEDS ORDERED: ASPIRIN 81 MG CHEW TABLET PO ONE (12:30)
[2019-01-06 14:16] LABS: CK-MB VALUE MASS 1.3 NG/ML (<3.6); CPK CREATINE PHOSPHOKINASE 119 U/L (26-192); MB/CK RELATIVE INDEX 1.09 (< OR =4); TROPONIN I < 0.02 NG/ML (< 0.10)
--- NOTE | 2019-01-06 14:41 | ECGEPIP ---
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
[2019-01-06] MEDS ORDERED: ASPI325T47 PO (14:46)
[2019-01-06 15:03] VITALS: BP 144/97
== END 2019-01-06 15:09 | disposition home or self-care (01) ==
LOC: M ED 07:24
DX: R07.89 Other chest pain (principal); R20.2 Paresthesia of skin; R06.02 Shortness of breath; I10 Essential (primary) hypertension; J45.909 Unspecified asthma, uncomplicated; E07.9 Disorder of thyroid, unspecified; Z98.84 Bariatric surgery status; Z79.899 Other long term (current) drug therapy; Z79.890 Hormone replacement therapy; Z79.82 Long term (current) use of aspirin
CPT/HCPCS: 36415; 70450; 70498; 70544; 70551; 71045; 71275; 80047; 80048; 80076; 81001; 82550; 82553; 83690; 84439; 84484; 85025; 85610; 85730; 86850; 86900; 86901; 93005; 93041; 94760; 99291; Q9967

== ENCOUNTER → 2019-04-08 | Outpatient (CLI) | payer BC ==
[~2019-04-08] MED LIST changes: +ACET25TA12 PO; +ASPI325T47 PO; +DULO30CA47 PO; -PYRI100T2 PO; +VITA100T82 PO
[2019-04-08 07:50] LABS: BASO # 0.1 10^3/uL (0.0-0.2); BASO % 1.1 % (0.0-1.0); EOS # 0.2 10^3/uL (0.0-0.5); EOS % 3.6 % (0.0-3.0); HEMATOCRIT 38.4 % (36.0-47.0); HEMOGLOBIN 12.8 g/dl (12.0-15.5); LYMPH # 1.6 10^3/uL (1.5-5.0); LYMPH % 27.9 % (24.0-44.0); MEAN CORPUSCULAR HEMOGLOBIN 29.4 pg (27.0-33.0); MEAN CORPUSCULAR HGB CONC 33.3 g/dl (32.0-36.5); MEAN CORPUSCULAR VOLUME 88.3 fl (80.0-96.0); MONO # 0.4 10^3/uL (0.0-0.8); MONO % 7.3 % (0.0-5.0); NEUTROPHILS # 3.3 10^3/uL (1.5-8.5); NEUTROPHILS % 59.7 % (36.0-66.0); PLATELET COUNT, AUTOMATED 359 10^3/uL (150-450); RED BLOOD COUNT 4.35 10^6/uL (4.00-5.40); WHITE BLOOD COUNT 5.6 10^3/uL (4.0-10.0)
[2019-04-08 08:21] LABS: ALBUMIN 3.9 GM/DL (3.2-5.2); ALT/SGPT 13 U/L (12-78); BILIRUBIN,TOTAL 0.4 MG/DL (0.2-1.0); BLOOD UREA NITROGEN 10 MG/DL (7-18); CALCIUM LEVEL 8.7 MG/DL (8.5-10.1); CARBON DIOXIDE LEVEL 28 MEQ/L (21-32); CHLORIDE LEVEL 105 MEQ/L (98-107); CHOLESTEROL LEVEL 215 MG/DL (<200); CHOLESTEROL RISK RATIO 3.071 (<5); CREATININE FOR GFR 0.76 MG/DL (0.55-1.30); FREE T4 0.91 NG/DL (0.76-1.46); GLOMERULAR FILTRATION RATE > 60.0 (>58); GLUCOSE, FASTING 82 MG/DL (70-100); HDL CHOLESTEROL 70 MG/DL (>40); LDL CHOLESTEROL 128 MG/DL (<100); MAGNESIUM LEVEL 2.5 MG/DL (1.8-2.4); NON-HDL-C 145 MG/DL; POTASSIUM SERUM 3.9 MEQ/L (3.5-5.1); SODIUM LEVEL 140 MEQ/L (136-145); TOTAL PROTEIN 6.9 GM/DL (6.4-8.2); TRIGLYCERIDES LEVEL 85 MG/DL (<150)
--- NOTE | 2019-04-08 08:49 | REP ---
Renal Vascular Doppler Ultrasound: Right Kidney: Renal length 13.0 cm. Extraparenchymal renal artery. Peak renal artery flow velocity the 84.3 cm/ sec Peak aortic velocity: 88.3 cm/sec Renal/aortic ratio: 0.95 Intraparenchymal renal arteries. Resistive index: upper pole 0.6 mid pole 0.6 lower pole 0.6 L Acceleration time: upper pole 0.048 mid pole 0.04 a lower pole 0.042 Left kidney: Renal length 12.3 cm. Extraparenchymal renal artery: Peak renal artery flow velocity: 68.9 cm/sec. Peak aortic velocity: 88.3 cm/sec Renal/aortic ratio: 0.78 Intraparenchymal renal arteries: Resistive index: Upper pole 0.62 mid pole 0.7 Z lower pole 0.64 Acceleration time: Upper pole 0.034 mid pole 3103 a lower pole 0.036. Impression: There is no Doppler ultrasound evidence of renal artery stenosis. Bilateral renal ultrasound: The right kidney measures 30.06 x 0 x 4.5 cm. Left kidney measures 11.3 x 5.1 x 5.5 cm. The kidneys are normal size. Renal cortical echogenicity is normal bilaterally. There is no hydronephrosis on the right on the left. There are no renal cysts on the right on the left. However, there is a hyperechoic 2.7 cm lesion at the mid pole of the right kidney suggesting that this is a solid lesion. Upon review of a abdomen/pelvis CT with IV contrast dated 09/10/2017 there was a hypodense lesion at the mid pole of the right kidney thought to have been a cyst by CT. However, upon review of the CT measuring density is with this level within this lesion, the CT density measures -68 Hounsfield units. This is more compatible with fat density than fluid density on the comparison CT. This in combination with the hyperechoic feature of this lesion by ultrasound is most compatible with angiomyolipoma. There are no other solid lesions in the right and the left kidneys. Bladder: With color Doppler assessment there are bilateral ureteral jets. 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 Otherwise, negative renal ultrasound. Electronically Signed by Ivan Drummond MD 04/08/2019 08:40 A
[2019-04-08 10:31] LABS: TOTAL 25(OH) VITAMIN D 35.7 NG/ML (30.0-100.0)
[2019-04-08 10:32] LABS: PTH INTACT 107.7 PG/ML (18.5-88.0); VITAMIN B12 LEVEL 534 PG/ML (247-911)
== END ==
LOC: M RAD 06:49
PROVIDERS: ATTEND Family Medicine
DX: I10 Essential (primary) hypertension (principal); D50.9 Iron deficiency anemia, unspecified; E55.9 Vitamin D deficiency, unspecified; E03.9 Hypothyroidism, unspecified

== ENCOUNTER → 2019-04-22 | Outpatient (CLI) | payer BC ==
--- NOTE | 2019-04-23 13:40 | REP ---
Clinical: Pelvic/left adnexal pain. Technique: Transabdominal pelvic ultrasound followed by transvaginal examination for better evaluation of the endometrium and adnexa with color Doppler evaluation of the ovaries. Findings: Evidence of prior hysterectomy and right oophorectomy. Left ovary appears grossly normal and measures 1.8 x 1.2 x 1.9 cm (RI 0.46). No pelvic fluid or adnexal mass lesion. Bladder is normal and measures 6.5 x 4.1 x 9.2 cm. Impression: 1. Normal left ovary. 2. Evidence of prior hysterectomy and right oophorectomy. Electronically Signed by Tang Hardin MD 04/23/2019 01:32 P
== END ==
LOC: M RAD 14:26
PROVIDERS: ATTEND Family Medicine
DX: R10.2 Pelvic and perineal pain (principal)

== ENCOUNTER → 2020-01-13 | Outpatient (CLI) | payer BC ==
[2020-01-13 09:01] LABS: BASO # 0.1 10^3/uL (0.0-0.2); BASO % 1.3 % (0.0-1.0); EOS # 0.3 10^3/uL (0.0-0.5); EOS % 4.6 % (0.0-3.0); HEMATOCRIT 39.7 % (36.0-47.0); HEMOGLOBIN 12.5 g/dl (12.0-15.5); LYMPH # 1.9 10^3/uL (1.5-5.0); LYMPH % 29.4 % (24.0-44.0); MEAN CORPUSCULAR HGB CONC 31.5 g/dl (32.0-36.5); MEAN CORPUSCULAR VOLUME 85.7 fl (80.0-96.0); MONO # 0.5 10^3/uL (0.0-0.8); MONO % 7.9 % (0.0-5.0); NEUTROPHILS # 3.6 10^3/uL (1.5-8.5); NEUTROPHILS % 56.5 % (36.0-66.0); PLATELET COUNT, AUTOMATED 374 10^3/uL (150-450); RED BLOOD COUNT 4.63 10^6/uL (4.00-5.40); WHITE BLOOD COUNT 6.4 10^3/uL (4.0-10.0)
[2020-01-13 09:31] LABS: CREATININE,RANDOM URINE 79.6 MG/DL; TOTAL PROTEIN,RANDOM URINE 23.6 MG/DL (0.0-12.0)
[2020-01-13 09:34] LABS: ERYTHROCYTE SEDIMENTATION RATE 20 mm/hr (0-30)
[2020-01-13 09:38] LABS: ALT/SGPT 14 U/L (12-78); BILIRUBIN,TOTAL 0.4 MG/DL (0.2-1.0); BLOOD UREA NITROGEN 17 MG/DL (7-18); CALCIUM LEVEL 8.4 MG/DL (8.5-10.1); CARBON DIOXIDE LEVEL 30 MEQ/L (21-32); CHLORIDE LEVEL 102 MEQ/L (98-107); CREATININE FOR GFR 0.74 MG/DL (0.55-1.30); FREE T4 0.96 NG/DL (0.76-1.46); GLOMERULAR FILTRATION RATE > 60.0 (>51); GLUCOSE, FASTING 93 MG/DL (70-100); POTASSIUM SERUM 3.1 MEQ/L (3.5-5.1); SODIUM LEVEL 136 MEQ/L (136-145); TOTAL PROTEIN 7.3 GM/DL (6.4-8.2)
[2020-01-13 12:28] LABS: HEMOGLOBIN A1c 5.6 %
[2020-01-18 16:13] LABS: ANA (HEP2) Negative (.); CYCLIC CITRULLINATED PEPTIDE 5 units (0-19); HLA-B27 Negative (.)
== END ==
LOC: M LAB 08:09
PROVIDERS: ATTEND Family Medicine
DX: I10 Essential (primary) hypertension (principal); D50.9 Iron deficiency anemia, unspecified; E03.9 Hypothyroidism, unspecified; M19.90 Unspecified osteoarthritis, unspecified site

== ENCOUNTER → 2020-01-25 | Outpatient (REF) | payer BC ==
[2020-01-25 18:20] LABS: BLOOD UREA NITROGEN 16 MG/DL (7-18); CALCIUM LEVEL 9.3 MG/DL (8.5-10.1); CARBON DIOXIDE LEVEL 32 MEQ/L (21-32); CHLORIDE LEVEL 102 MEQ/L (98-107); CREATININE FOR GFR 0.77 MG/DL (0.55-1.30); GLOMERULAR FILTRATION RATE > 60.0 (>51); GLUCOSE, FASTING 128 MG/DL (70-100); MAGNESIUM LEVEL 2.4 MG/DL (1.8-2.4); PHOSPHORUS LEVEL 2.8 MG/DL (2.5-4.9); POTASSIUM SERUM 3.1 MEQ/L (3.5-5.1); RHEUMATOID FACTOR QUANT < 10.0 IU/ML (<15.0); SODIUM LEVEL 138 MEQ/L (136-145)
== END ==
LOC: M PLALAB 14:38
PROVIDERS: ATTEND Family Medicine
DX: M19.90 Unspecified osteoarthritis, unspecified site (principal)

== ENCOUNTER → 2020-02-19 | Outpatient (REF) | payer BC ==
[2020-02-19 16:04] LABS: ALBUMIN 4.1 GM/DL (3.2-5.2); ALT/SGPT 10 U/L (12-78); BILIRUBIN,TOTAL 0.4 MG/DL (0.2-1.0); BLOOD UREA NITROGEN 19 MG/DL (7-18); CALCIUM LEVEL 8.9 MG/DL (8.5-10.1); CARBON DIOXIDE LEVEL 31 MEQ/L (21-32); CHLORIDE LEVEL 102 MEQ/L (98-107); CREATININE FOR GFR 0.72 MG/DL (0.55-1.30); GLOMERULAR FILTRATION RATE > 60.0 (>51); GLUCOSE, FASTING 99 MG/DL (70-100); SODIUM LEVEL 139 MEQ/L (136-145); TOTAL PROTEIN 7.2 GM/DL (6.4-8.2)
[2020-02-19 16:25] LABS: HEPATITIS B SURFACE ANTIGEN NEGATIVE (NEGATIVE)
[2020-02-19 16:52] LABS: HEPATITIS C VIRUS ABY INDEX < 0.0 INDEX (<0.8)
== END ==
LOC: M SFHCPLAZ 10:28
PROVIDERS: ATTEND Family Medicine
DX: M19.90 Unspecified osteoarthritis, unspecified site (principal)

== ENCOUNTER → 2020-02-19 | Outpatient (CLI) | payer BC ==
--- NOTE | 2020-02-19 12:40 | REPPI ---
INDICATION: M19.90 ARTHRITIS. COMPARISON: None TECHNIQUE: Four views each elbow FINDINGS: There is no acute fracture, dislocation, subluxation, or joint effusion. IMPRESSION: Negative bilateral elbow <Electronically signed by Julian Vick > 02/19/20 [id number]
--- NOTE | 2020-02-19 12:44 | REPPI ---
INDICATION: M19.90 ARTHRITIS. COMPARISON: None. TECHNIQUE: Four views each hand FINDINGS: Left hand: The joint spaces are symmetric and relatively well maintained. There is no evidence of acute fracture or destructive osseous lesion. There is no prominent marginal osteophytosis. There are no marginal erosions. There is no evidence of periarticular osteopenia. Right hand: There is an age undetermined comminuted fracture of the distal aspect of the distal phalanx of the 1st digit. There is mild radial side marginal osteophytosis of the interphalangeal joint of the 1st digit. The joint spaces are otherwise symmetric and well maintained. There is no prominent marginal osteophytosis or marginal erosions. IMPRESSION: 1. Negative left hand 2. Age undetermined comminuted fracture distal aspect of the distal phalanx of the 1st digit of the right hand. Chronic changes involving the interphalangeal joint of the 1st digit of the right hand. <Electronically signed by Julian Vick > 02/19/20 [id number]
--- NOTE | 2020-02-19 12:46 | REPPI ---
INDICATION: M19.90 ARTHRITIS. COMPARISON: None TECHNIQUE: AP and frog lateral views each hip FINDINGS: The hip joint spaces are symmetric and relatively well maintained. There is no acute fracture, dislocation, subluxation, or destructive osseous lesion involving either hip. IMPRESSION: Within normal limits bilaterally <Electronically signed by Julian Vick > 02/19/20 [id number]
--- NOTE | 2020-02-19 12:49 | REPPI ---
INDICATION: M19.90 ARTHRITIS. Bilateral exam. COMPARISON: None. TECHNIQUE: Six views, 3 on each side. FINDINGS: Bilateral shoulder radiographs demonstrate normal alignment of the glenohumeral and acromioclavicular joints on each side. There is minimal articular spurring of the acromioclavicular joints bilaterally. No erosive changes are seen. Periarticular soft tissues are unremarkable. There is an old healed rib fracture noted on the left. 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 Otherwise negative bilateral shoulder radiographs. <Electronically signed by Peng Stern > 02/19/20 [id number]
--- NOTE | 2020-02-19 12:55 | REPPI ---
INDICATION: M19.90 ARTHRITIS. COMPARISON: None. TECHNIQUE: AP and bilateral obliques FINDINGS: Three views of the sacroiliac joints show them to be non-fused. There is no lysis or sclerosis of either the sacral or iliac side of either SI joint. There is no evidence of whiskering. There is no prominent osteophytosis. IMPRESSION: SI joints within normal limits. <Electronically signed by Julian Vick > 02/19/20 [id number]
== END ==
LOC: M PLAIMG 10:29
PROVIDERS: ATTEND Family Medicine
DX: M19.90 Unspecified osteoarthritis, unspecified site (principal); M25.741 Osteophyte, right hand

== ENCOUNTER → 2020-04-01 | Outpatient (CLI) | payer BC ==
[~2020-04-01] MED LIST changes: -ALEN70TA74 PO; +ALEN70TA82 PO; +CHLO25TA PO; +D31000TA2 PO; +PRED5TA PO
== END ==
LOC: M LABSMTC 10:06
PROVIDERS: ATTEND Anesthesiology
DX: Z01.812 Encounter for preprocedural laboratory examination (principal); Z20.822 Contact with and (suspected) exposure to COVID-19

== ENCOUNTER 2020-04-06 07:52 | Day surgery (SDC) | payer BC ==
[~2020-04-06] VITALS: Ht 170.2 cm; Wt 83.9 kg
[~2020-04-06 07:52] MED LIST changes: +LIDOCAINE 2% 100MG/5ML SDV (FOR ANES.) As Ordered ONE; +NS 1,000 ML IV ONE; +propofoL 200 MG/20 ML VIAL As Ordered ONE
--- OUTSIDE RECORDS SUMMARY | 2020-04-06 07:57 | CCD ---
Author Author [facility] Organization [facility] Address Unknown Phone Unavailable Care Team Providers Care Defense Analyst Name Role Phone Reginald Ng Unavailable PROBLEMS Type Condition ICD9-CM Code QAN94-VU Code Onset Dates Condition S tatus SNOMED Code Notes Problem Vitamin D deficiency E55.9 Active 09210831 Problem Depression F32.9 Active 78439839 Problem Breast cancer screening Z12.39 Active 25615874 8 Problem Hypothyroid E03.9 Active 33501455 Problem Restless leg syndrome G25.81 Active 87675420 Problem S/P gastric bypass Z98.84 Active 684724281 Problem Hypokalemia E87.6 Active 42917032 Problem PUD (peptic ulcer disease) K27.9 Active 62183 003 Problem 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 Active 737814147 Problem Herpes zoster without complication B02.9 Activ e 819138357 Problem Mixed hyperlipidemia E78.2 Active 004220561 Problem Migraine without aura and without status migrain osus, not intractable G43.009 Active 990668256 Problem Arthritis M19.90 Active 5426931 Problem Spondylosis of lumbar region without myelopathy or radiculopathy M47.816 Active 58244416 Problem Asthma, mild intermittent J45.20 Active 514141 007 Problem Colon cancer screening Z12.11 Active 180651127 Problem Overweight E66.3 Active 607862957 Problem Fe deficiency anemia D50.9 Active 00746463 Problem Allergic rhinitis J30.9 Active 17470969 Problem Intractable migraine without aura and without st atus migrainosus G43.019 Active 471833865 Problem Oropharyngeal dysphagia R13.12 Active 57757838 Problem Gastroesophageal reflux disease with esophagitis K 21.0 Active 118336344 Problem Essential hypertension I10 Active 10923317 ALLERGIES Allergen (clinical drug ingredient) Drug/Non Drug Allergy do cumented on EMR Reaction Allergy Type Onset Date Status Vicks BabyRub([facility] Code:43769-61857) chest tightens Drug Al lergy Active Metamucil([facility] Code:23695-66448) Anaphylaxis Drug Allergy Active ENCOUNTERS from 1969 to 2020-02-29 Encounter Location Date Provider Diagnosis [address] [place] [address] 04 Feb, 020 Reginald Ng Depression F32.9 ; Arthritis M19.90 ; Essential hypertension I10 ; Gastroesophageal reflux disease with esophagitis K21.0 ; PUD (peptic ulcer disease) K27.9 ; Intractable migraine without aura and without status migrainosus G43.019 ; Mixed hyperlipidemia E78.2 ; Overweight E66.3 ; Colon cancer screening Z12.11 ; Breast cancer screening Z12.39 ; Spondylosis of lumbar region without myelopathy or radiculopathy M47.816 ; 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 ; Restless leg syndrome G25.81 ; Vitamin D deficiency E55.9 ; S/P gastric bypass Z98.84 ; Fe deficiency anemia D50.9 ; Hypothyroid E03.9 ; Allergic rhinitis J30.9 and Asthma, mild intermittent J45.20 IMMUNIZATIONS Vaccine Route Administration Date Status Rocephin 1gm (Ceftriaxone) IM Intramuscular August 17, 2016 Admi nistered SOCIAL HISTORY Tobacco Use: Social History Observation Description Date Details (start date - stop date) Never Smoker Sex Assigned At : Social History Observation Description Sex Assigned At Unknown Education: Question Answer Notes Level of Education: Finished High School boces Language: Question Answer Notes Languages spoken: Syriac Nondenominational: Question Answer Notes Nondenominational 13 Bahai Sexual Hx: Question Answer Notes Had sex in the last 12 months (vaginal, oral, or anal)? Yes Have you ever had an STD? No with Men only Use protection? No Alcohol Screening: Question Answer Notes Did you have a drink containing alcohol in the past year? Ye s Points 5 Interpretation Positive How often did you have six or more drinks on one occas ion in the past year? Monthly (2 points) How many drinks did you have on a typica l day when you were drinking in the past year? 3 or 4 (1 point) How often did you have a drink containing alcohol in t he past year? Two to four times a month (2 points) Tobacco Use: Question Answer Notes Are you a: never smoker REASON FOR REFERRAL No Information VITAL SIGNS Weight 189.2 lbs Feb, Height 66 in Feb, BMI 30.53 kg/m2 Feb, Heart Rate 88 /min Feb, Respiratory Rate 18 /min Feb, Temperature 97.1 degrees Fahrenheit Feb, Oximetry 98% Feb, Blood pressure systolic 120 mm Hg Feb, Blood pressure diastolic 68 mm Hg Feb, MEDICATIONS Medication SIG (Take, Route, Frequency, Duration) Notes Start Da te End Date Status Esomeprazole Magnesium 40 MG 1 capsule Orally every morning for 30 day(s) Jan, Active Escitalopram Oxalate 10 MG 1 tablet Orally Once a day for 90 day(s) Active Albuterol Sulfate HFA 108 (90 Base) MCG/ACT 2 puffs In halation Every 4 hours as needed for 90 day(s) Active Potassium Chloride 20 MEQ/15ML (10%) 7.5 ml with food Orally Once a day for 30 day(s) Active Telmisartan 40 MG 1 tab Orally Once a day for 90 day(s) Active Qnasl 80 MCG/ACT 2 puffs in each nostril Nasally Once a day for 30 Active Chlorthalidone 25 MG 1 tab Orally every morning for 90 day(s) Active Voltaren 1 % as directed Transdermal qid for 30 day(s) Active Fexofenadine HCl 180 MG 1 tablet Orally Once a day Active Sulfasalazine 500 MG 1 tablet Orally daily x 14 days, then BID f or 90 day(s) Feb, Active Vitamin B6 250 MG 1 tablet Orally Once a day Active Topiramate 25 mg 2 tabs in am, 1 in pm Orally Twice a day for 90 day( s) Active Vitamin B 12 500 MCG 1 tab(s) Orally once a day Active Levothyroxine Sodium 50 MCG 1 tablet on an empty stoma ch in the morning Orally Once a day for 90 day(s) Active Vitamin D3 5000 UNIT 1 Orally bid for 30 Active Duloxetine HCl 60 MG 1 capsule Orally bid for 90 day(s) Active PredniSONE 5 MG (21) 6 tabs po x 1 day, then 5 4 3 2 1 then 5 qd Orally Daily with food for 30 Days Feb, Active Tylenol PM 1 tab Oral OTC Active Eletriptan Hydrobromide 40 MG 1 tablet as needed one t bay Orally prn migraine, may repeat x 1 after 2 hours for 30 day(s) Active PROCEDURES No Information RESULTS Component Value Reference Range PLZ HAND COMPLETE Reviewed date:02/19/2020 14:09:48 Interpretation: Performing Lab:[facility] [address] ,[place] [address] PLZ HIP COMPLETE (AP/LAT) Reviewed date:02/19/2020 14:10:05 Interpretation: Performing Lab:[facility] [address] ,[place] [address] PLZ SI JOINTS Reviewed date:02/19/2020 14:09:55 Interpretation: Performing Lab:[facility] [address] ,[place] [address] Comprehensive Metabolic Profile (CMP) Reviewed date:02/22/2020 13:19:19 Interpretation: Performing Lab:[facility] [address] [facility] [address] , ,[place] [address] GLUCOSE, FASTING 99 70-100 BLOOD UREA NITROGEN 19 7-18 CREATININE FOR GFR 0.72 0.55-1.30 GLOMERULAR FILTRATION RATE > 60.0 >51 SODIUM LEVEL 139 136-145 POTASSIUM SERUM 3.0 3.5-5.1 CHLORIDE LEVEL 102 98-107 CARBON DIOXIDE LEVEL 31 21-32 CALCIUM LEVEL 8.9 8.5-10.1 AST/SGOT 17 7-37 ALT/SGPT 10 12-78 ALKALINE PHOSPHATASE 50 45-117 BILIRUBIN,TOTAL 0.4 0.2-1.0 TOTAL PROTEIN 7.2 6.4-8.2 ALBUMIN 4.1 3.2-5.2 ALBUMIN/GLOBULIN RATIO 1.3 1.2-2.2 C REACTIVE PROTEIN QUANTITATIV (At [facility] L ab) Reviewed date:02/22/2020 13:19:22 Interpretation: Performing Lab:[facility] [address] [facility] [address] , ,[place] [address] C REACTIVE PROTEIN QUANTITATIV 0.30 0.00-0.30 ERYTHROCYTE SEDIMENTATION RATE Reviewed date:02/22/2020 13:19:14 Interpretation: Performing Lab:[facility] [address] [facility] [address] , ,[place] [address] ERYTHROCYTE SEDIMENTATION RATE 17 0-30 HEPATITIS C ANTIBODY INDEX Reviewed date:02/22/2020 13:19:24 Interpretation: Performing Lab:[facility] [address] [facility] [address] , ,[place] [address] HEPATITIS C VIRUS KATE INDEX < 0.0 <0.8 HEPATITIS B SURFACE ANTIGEN Reviewed date:02/22/2020 13:19:26 Interpretation: Performing Lab:[facility] [address] [facility] [address] , ,[facility] HEPATITIS B SURFACE ANTIGEN NEGATIVE NEGATIVE REASON FOR VISIT FOLLOW UP MEDICAL (GENERAL) HISTORY Type Description Date Medical History status post open gastric byp ass August [address] 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 and secondary weight gain Medical History hypothyroidism Medical History impaired fasting glucose Medical History MDD Medical History GERD-11/2017 normal EGD-[facility] Medical History obesity Medical History hyperlipidemia 2B Medical History anemia secondary to iron deficiency Medical History R cephalic vein superficial thrombophlebitis 2 to Venofer infusion-06/2011 Medical History palpitations-03/2012 ANITHA-symp toms correlated c ST 100-120-140 bpm-[facility] Medical History L 10/24 posterior axillary jean marie e fracture s/p falling off boat by 09/2013 xray Medical History lumbar DJD c recurrent R rad icular pain s/p work-related injury ~2003-saw Dr. Obrien, improved c PT/moderate L3-4 DJD by 02/2014 xray Medical History perimenopause Medical History fibrocystic breast disease Medical History asthma, mild intermittent-flares c URIs Medical History L C6 zoster-04/2017-first in life Medical History laryngeal penetration by 05/2018 UGI, but 05/2018 normal MBS Medical History hypertension, essential-onse t in 30s-04/08/19 B renal US WNL s MARSHA, 27 mm R angiomyolipoma Surgical History RNY laproscopic gastric bypass 2005 Surgical History gastro-gastric fistual repair 2 to above -[facility] 11/2010 Surgical History tubal ligation 1993 Surgical History oophorectomy-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 Riggs-done 2 menorrhagia 10/19/2015 Surgical History bunionecotmy, spurs removed, and cyst removal-Dr. Treadwell-[facility] 06/29/16 Surgical History omental adhesion to bowel an d abdominal wall lysis; normal EGD-[facility] 05/06/18 Hospitalization History GI bleed 2 pouch ulcer/fistula 02/24 Hospitalization History gastritis-[facility]-increase d Prilosec BID and started Carafate QID-no EGD done 12/2012 Goals Section No Information Health Concerns No Information MEDICAL EQUIPMENT No Information MENTAL STATUS No Information FUNCTIONAL STATUS No Information ASSESSMENTS Encounter Date Diagnosis Assessment Notes Treatment Notes Treatm ent Clinical Notes Feb, Depression (ICD-10 - F32.9) on escital 10, dulox 60 BID as per lumbar DJD 03/30/19 restarted escitalo 10 and increased dulox as per lumbar 04/2018 patient held escitalo 20 on own Feb, Arthritis (ICD-10 - M19.90) favor sero-negative RA mother c RA c nodulosis onset 27 (was on MTX-? 2secondary nodulosis/liver CA), 3 maternal aunts c RA C: ,push SSZ, +leflu, adalin 02/19/20 SDAI 18; therefore, + SSZ 500 QD x 14D, then BID, repeat pred 60/6D, then 5 QD 01/22/20 +pred 60/6D taper c eso 40 c marked improvement by 3rd day c benefit for ~1W 01/18/20 + jerson 200 QD s improvement and severe dyspepsia 01/12/20 CRP/ESR 0.3; B hip>knee/ankle, elbow pain c AM stiffness 1-2H worsening since ~06/201901/25/20 -RF/CCP 2, -Stefan, -HLA B27, -LA 05/09/09 CCP 4, Stefan Feb, Essential hypertension (ICD-10 - I10) Stable on telmi 40 and CTD 25 qAM 01/25/20 16/0.8, 3.1, 2.4; therefore, + K 10 liquid (20 meQ/15 ml) 04/08/19 3.9, 2.5, 0.8 Contingency: 24H urine mother and MGM c early-onset HTN 03/30/19 increased CTD 12.5 to 25 qAM c cb BID HBPs and ro MARSHA which was - 01/13/19 + telmi 40, then 02/03/19 + CTD 12.5 qAM 01/06/19 CTA chest/neck WNL, MRI/MRA brain few scattered T2 [facility] 06/21/16 EKG NSR 64 beats per minute, LVH voltages, diffuse RA, borderline QTc 489 ms similar to 09/20/15 EKG intermittent asx decreases-favor 2 malabsorption Feb, Gastroesophageal reflux disease with eso phagitis (ICD-10 - K21.0) Patient remains asymptomatic off medications 05/11/18 EGD (per patient) not able to be done because Robbin stated to her esophagus was "crooked" (although ? surgical report reported normal EGD) favor increased LORENA/espophagitis/LPR since off PPI/sulcraf/meto since 12/2017- all dced by Robbin Feb, PUD (peptic ulcer disease) (ICD-10 - K27.9) No recurrent symptoms off ALL NSAIDs 11/2017 normal EGD Mer x ? delayed emptying; therefore, + meto 10 AC TID/QHS and held omep/sulcraf 05/2018 - H pylori 08/2017 HIDA c EF normal, 79% 08/2017 CT AP NAD 07/2017 gb US normal Feb, Intractable migraine without aura and without status migrainosus (ICD-10 - G43.019) Stable on topir 50/25 BID and eletript 40 QD prn 04/18/17 given persistent daily classic migraine ROCHE for ~precedent 3W (similar to previous migraine, but longer duration), started topir 25 QD x 2D, then BID and changed riza 10 (given minimal benefit) to claritza 40 c recheck in 2-3W and cb if worsens or new symptoms 03/2017 MRI brain several T2H in PV and SCWM 04/09/17 normal opthalomologic exam including VF and discs (x OD IOP 22) -Dr. Carter Feb, Mixed hyperlipidemia (ICD-10 - E78.2) Continue dietary therapy 04/08/19 128/70/85 01/2018 141/70/110 TSH as per hypo Feb, Overweight (ICD-10 - E66.3) Encouraged weight loss Feb, Colon cancer screening (ICD-10 - Z12.11) 01/12/20 consents to screening colon c W Feb, Breast cancer screening (ICD-10 - Z12.39) 11/2018 B C1 mammogram GM/aunt c breast cancer Feb, Spondylosis of lumbar region without myelopathy or radiculopathy (ICD-10 - M47.816) Stable on home PT and dulox 30 BID 05/2018 increased to 30 BID 08/2016 patient requested Cymbalta trial for chronic paralumbar pain-started 20 QD x 7D, then 20 BID c improvement Stable on home PT and dulox 20 BID 08/2016 patient requested Cymbalta trial for chronic paralumbar pain-started 20 QD x 7D, then 20 BID c improvement Feb, Arthritis of foot (ICD-10 - M19.079) Stable on diclof QID prn Feb, Restless leg syndrome (ICD-10 - G25.81) present since mid 30s-prior to gb-never treated Fe as per Fe-kept ferritin >75 01/2016 increased to 0.5 c improvement, but then improved c improved Fe 12/2015 ropinirole 0.25 qhs started-goal 2-4 Feb, Vitamin D deficiency (ICD-10 - E55.9) 0-1 servings dietary calicum daily 04/08/19 36, 8.7, 108 05/2018 38, 8.6, 74 on D3 5K 01/2018 23, 8.9, 129 03/2017 34, 9.5, 65 06/2016 36, 9.3, PTH 95; therefore, D3 5K QD to BID 11/2018 BMD 0.3/-0.1/0.9 c 1/-3/1% change cw 03/2014; therefore, CCR Feb, S/P gastric bypass (ICD-10 - Z98.84) No dumping symptoms 01/2018 B12 518 on 500 po 10/2012 RBC folate 477 06/2014 B1 138 (67-200) 06/2016 RBC zinc 1296 04 Feb, 2020 Fe deficiency anemia (ICD-10 - D50.9) favor 2 malabsorption 2 gb/PPI use patient colonoscopy (never had colonoscopy) cannot tolerate any po Fe-pill nor liquid-continue IV Venofer prn 01/13/20 12.5, 86, r30/1.3 04/08/19 12.8, 88, r31/1.6 09/2018 13.8, 91 05/2018 16%, 22 01/2018 12.9, 91, 16, 23% 03/2017 13.7, 90, 21%, 31 04 Feb, 2020 Hypothyroid (ICD-10 - E03.9) 01/12/30 2.6, 1.0 04/08/19 2.1, 0.9 on LT4 50 03/2017 1.5, 1.0 Feb, Allergic rhinitis (ICD-10 - J30.9) Stable on current regimen Feb, Asthma, mild intermittent (ICD-10 - J45.20) Stable on albuterol MDI, mainly c URI or smoking exposure PLAN OF TREATMENT Medication Medication Name Sig Start Date Stop Date Sulfasalazine 500 MG 1 tablet Orally daily x 14 days, then B ID for 90 day(s) Feb, PredniSONE 5 MG (21) 6 tabs po x 1 day, then 5 4 3 2 1 then 5 qd Orally Daily with food for 30 Days Feb, Fexofenadine HCl 180 MG 1 tablet Orally Once a day Voltaren 1 % as directed Transdermal qid for 30 day(s) Vitamin B6 250 MG 1 tablet Orally Once a day Chlorthalidone 25 MG 1 tab Orally every morning for 90 day(s) Topiramate 25 mg 2 tabs in am, 1 in pm Orally Twice a day for 90 day(s) Albuterol Sulfate HFA 108 (90 Base) MCG/ACT 2 puffs In halation Every 4 hours as needed for 90 day(s) Vitamin B 12 500 MCG 1 tab(s) Orally once a day Qnasl 80 MCG/ACT 2 puffs in each nostril Nasally Once a day for 30 Potassium Chloride 20 MEQ/15ML (10%) 7.5 ml with food Orally Once a day for 30 day(s) Vitamin D3 5000 UNIT 1 Orally bid for 30 Duloxetine HCl 60 MG 1 capsule Orally bid for 90 day(s) Eletriptan Hydrobromide 40 MG 1 tablet as needed one t bay Orally prn migraine, may repeat x 1 after 2 hours for 30 day(s) Levothyroxine Sodium 50 MCG 1 tablet on an empty stoma ch in the morning Orally Once a day for 90 day(s) Telmisartan 40 MG 1 tab Orally Once a day for 90 day(s) Escitalopram Oxalate 10 MG 1 tablet Orally Once a day for 90 day (s) Treatment Notes Assessment Notes Clinical Notes Vitamin D deficiency 0-1 servings dietar y calicum daily04/08/19 36, 8.7, 1083 38, 8.6, 74 on D3 5K103/2017 23, 8.9, 1291 34, 9.5, 654/2016 36, 9.3, PTH 95; therefore, D3 5K QD to BID11/2018 BMD 0.3/-0.1/0.9 c 1/-3/1% change cw 03/2014; therefore, CCR Depression on escital 10, dulox 60 BID as per lumbar DJ03/30/19 restarted escitalo 10 and increased dulox as per lumbar04/2018 patient held escitalo 20 on own Restless leg syndrome present since mid 30s-prior to gb-never treatedFe as per Fe-kept ferritin >7511/2015 increased to 0.5 c improvement, but then improved c improved Fe12/2015 ropinirole 0.25 qhs started-goal 2-4 Arthritis favor sero-negative RAmother c RA c nodulosis onset 27 (was on MTX-? 2secondary nodulosis/liver CA), 3 maternal aunts c RAC: ,push SSZ, +leflu, ymapcn81/4/20 SDAI 18; therefore, + SSZ 500 QD x 14D, then BID, repeat pred 60/6D, then 5 QD01/22/20 +pred 60/6D taper c eso 40 c marked improvement by 3rd day c benefit for ~1W01/18/20 + jerson 200 QD s improvement and severe olvlcxtzs05/27/20 CRP/ESR 0.3/20; B hip>knee/ankle, elbow pain c AM stiffness 1- 2H worsening since ~ -RF/CCP 2, -Stefan, -HLA B27, -LA05/09/09 CCP 4, Stefan Fe deficiency anemia favor 2 malabsorpti on 2 gb/PPI usepatient colonoscopy (never had colonoscopy)cannot tolerate any po Fe-pill nor liquid-continue IV Venofer prn1 12.5, 86, r30/1. 12.8, 88, r31/1. 13.8, 9105/2018 16%, 12.9, 91, 16, 23%03/2017 13.7, 90, 21%, 31 Essential hypertension Stable on telmi 4 0 and CTD 25 qAM103/26/19 16/0.8, 3.1, 2.4; therefore, + K 10 liquid (20 meQ/15 ml)04/08/19 3.9, 2.5, 0.8Contingency: 24H urinemother and MGM c early-onset HTN03/30/19 increased CTD 12.5 to 25 qAM c cb BID HBPs and ro MARSHA which was -01/13/19 + telmi 40, then 02/03/19 + CTD 12.5 qAM1 CTA chest/neck WNL, MRI/MRA brain few scattered T2 [facility]06/21/16 EKG NSR 64 beats per minute, LVH voltages, diffuse RA, borderline QTc 489 ms similar to 09/20/15 EKGintermittent asx decreases-favor 2 malabsorption S/P gastric bypass No dumping symptoms1 03/2017 B12 518 on 500 po10/2012 RBC folate 4774/2014 B1 138 (67-200)06/2016 RBC zinc 1296 Gastroesophageal reflux disease with esophagitis Patient remains asymptomatic off medications05/11/18 EGD (per patient) not able to be done because Robbin stated to her esophagus was "crooked" (although ? surgical report reported normal EGD)favor increased LORENA/espophagitis/LPR since off PPI/sulcraf/meto since 12/2017-all dced by Robbin Allergic rhinitis Stable on current re gimen PUD (peptic ulcer disease) No recurrent symptoms off ALL NSAIDs11/2017 normal EGD Mer x ? delayed emptying; therefore, + meto 10 AC TID/QHS and held omep/sulcraf05/2018 - H pylori08/2017 HIDA c EF normal, 79%08/2017 CT AP NAD07/2017 gb US normal Hypothyroid 01/12/30 2.6, 1.01/2 05/07 2.1, 0.9 on LT4 1.5, 1.0 Intractable migraine without aura and without status migrain osus Stable on topir 50/25 BID and eletript 40 QD pr04/18/17 given persistent daily classic migraine ROCHE for ~precedent 3W (similar to previous migraine, but longer duration), started topir 25 QD x 2D, then BID and changed riza 10 (given minimal benefit) to claritza 40 c recheck in 2-3W and cb if worsens or new symptoms03/2017 MRI brain several T2H in PV and SCW04/09/17 normal opthalomologic exam including VF and discs (x OD IOP 22) -Dr. Carter Mixed hyperlipidemia Continue dietary th erapy04/08/19 128//2017 141/70/110TSH as per hypo Asthma, mild intermittent Stable on albu terol MDI, mainly c URI or smoking exposure Arthritis of foot Stable on diclof QID prn Spondylosis of lumbar region without myelopathy or radiculop athy Stable on home PT and dulox 30 BID05/2018 increased to 30 BID08/2016 patient requested Cymbalta trial for chronic paralumbar pain-started 20 QD x 7D, then 20 BID c improvementStable on home PT and dulox 20 BID08/2016 patient requested Cymbalta trial for chronic paralumbar pain-started 20 QD x 7D, then 20 BID c improvement Overweight Encouraged weight lo ss Colon cancer screening 01/12/20 consents to screening colon c W Breast cancer screening 11/2018 B C1 mamm ogramGM/aunt c breast cancer Treatment Notes Test Name Order Date Early Sjogren's Syndrome Prof 2020-02-29 CATY 2020-02-29 [facility] Elbow, complete 2020-02-29 [facility] Shoulder, complete 2020-02-29 QUANTIFERON TB GOLD TEST 2020-02-29 Next Appt Details 3-4W, BW NOW Reason: Provider Name:Reginald Ng, 2020-03-15 0 1:45:00 PM, [address] [place], [address], Insurance Providers Payer Name Payer Address Payer Phone Insured Name Patient Relati onship to Insured Coverage Start Date Coverage End Date [employer] OF [facility] [phone] [facility] [id number] ZIG[employer] ZAMBRANO self
--- OUTSIDE RECORDS SUMMARY | 2020-04-06 07:57 | CCD ---
Author Author [facility] Organization [facility] Address Unknown Phone Unavailable Care Team Providers Care Talent Acquisition Operations Manager Name Role Phone Reginald Ng Unavailable PROBLEMS Type Condition ICD9-CM Code [id number] Code Onset Dates Condition S tatus SNOMED Code Notes Problem Vitamin D deficiency E55.9 Active 27182330 Problem Depression F32.9 Active 50982160 Problem Breast cancer screening Z12.39 Active 72414698 8 Problem Hypothyroid E03.9 Active 94211368 Problem Restless leg syndrome G25.81 Active 74495449 Problem S/P gastric bypass Z98.84 Active 241895501 Problem Hypokalemia E87.6 Active 52755537 Problem PUD (peptic ulcer disease) K27.9 Active 94275 003 Problem 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 Active 044981675 Problem Herpes zoster without complication B02.9 Activ e 963961994 Problem Mixed hyperlipidemia E78.2 Active 913689501 Problem Migraine without aura and without status migrain osus, not intractable G43.009 Active 383620207 Problem Arthritis M19.90 Active 7251948 Problem Spondylosis of lumbar region without myelopathy or radiculopathy M47.816 Active 36728160 Problem Asthma, mild intermittent J45.20 Active 268356 007 Problem Colon cancer screening Z12.11 Active 843271191 Problem Overweight E66.3 Active 217559964 Problem Fe deficiency anemia D50.9 Active 66676308 Problem Allergic rhinitis J30.9 Active 70862251 Problem Intractable migraine without aura and without st atus migrainosus G43.019 Active 202329831 Problem Oropharyngeal dysphagia R13.12 Active 78234967 Problem Gastroesophageal reflux disease with esophagitis K 21.0 Active 771802313 Problem Essential hypertension I10 Active 34091096 ALLERGIES Allergen (clinical drug ingredient) Drug/Non Drug Allergy do cumented on EMR Reaction Allergy Type Onset Date Status Shantelle Ruvalcaba([facility] Code:91556-[address]643) chest tightens Drug Al lergy Active Metamucil Anaphylaxis Drug Allergy Active ENCOUNTERS from 1969 to 2020-03-16 Encounter Location Date Provider Diagnosis [address] [address] Feb, 020 Reginald Ng Arthritis M19.90 IMMUNIZATIONS Vaccine Route Administration Date Status Rocephin 1gm (Ceftriaxone) IM Intramuscular August 17, 2016 Admi nistered SOCIAL HISTORY Tobacco Use: Social History Observation Description Date Details (start date - stop date) Never Smoker Sex Assigned At : Social History Observation Description Sex Assigned At Unknown Education: Question Answer Notes Level of Education: Finished High School boces Language: Question Answer Notes Languages spoken: Vietnamese Hoahaoism: Question Answer Notes Hoahaoism 13 Mandaeism Sexual Hx: Question Answer Notes Had sex [...] REASON FOR REFERRAL No Information VITAL SIGNS No information MEDICATIONS Medication SIG (Take, Route, Frequency, Duration) Notes Start Da te End Date Status PredniSONE 5 MG 1 tablet Orally bid for 30 Days Active Humira 40 MG/0.4ML 0.4 ml Subcutaneous every 2 weeks for 90 day( s) Feb, Active Tylenol PM 1 tab Oral OTC Active Potassium Chloride 20 MEQ/15ML (10%) 7.5 ml with food Orally Once a day for 30 day(s) Active Humira 40 MG/0.4ML 0.4 ml Subcutaneous every 14 days for 90 day( s) Feb, Active Vitamin B6 250 MG 1 tablet Orally Once a day Active Duloxetine HCl 60 MG 1 capsule Orally bid for 90 day(s) Active Eletriptan Hydrobromide 40 MG 1 tablet as needed one t bay Orally prn migraine, may repeat x 1 after 2 hours for 30 day(s) Active Levothyroxine Sodium 50 MCG 1 tablet on an empty stoma ch in the morning Orally Once a day for 90 day(s) Active Albuterol Sulfate HFA 108 (90 Base) MCG/ACT 2 puffs In halation Every 4 hours as needed for 90 day(s) Active Vitamin B 12 500 MCG 1 tab(s) Orally once a day Active Vitamin D3 5000 UNIT 1 Orally bid for 30 Active Chlorthalidone 25 MG 1 tab Orally every morning for 90 day(s) Active Humira 40 MG/0.8ML 0.8 ml Subcutaneous every 14 days for 90 day( s) Feb, Active Qnasl 80 MCG/ACT 2 puffs in each nostril Nasally Once a day for 30 Active Esomeprazole Magnesium 40 MG 1 capsule Orally every morning for 90 day(s) Jan, Active Telmisartan 40 MG 1 tab Orally Once a day for 90 day(s) Active Voltaren 1 % as directed Transdermal qid for 30 day(s) Active Escitalopram Oxalate 10 MG 1 tablet Orally Once a day for 90 day(s) Active Topiramate 25 mg 2 tabs in am, 1 in pm Orally Twice a day for 90 day( s) Active Fexofenadine HCl 180 MG 1 tablet Orally Once a day Active PROCEDURES No Information RESULTS No Results REASON FOR VISIT Martha MEDICAL (GENERAL) HISTORY Type Description Date Medical [...] History gastro-gastric fistual repair 2 to above -[facility] 11/2010 Surgical History tubal ligation 1993 Surgical History oophorectomy-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 Riggs-done 2 menorrhagia 10/19/2015 Surgical History bunionecotmy, spurs removed, and cyst removal-Dr. Treadwell[facility] 06/29/16 Surgical History omental adhesion to bowel an d abdominal wall lysis; normal EGD-[facility] 05/06/18 Hospitalization History GI bleed 2 pouch ulcer/fistula 02/24 Hospitalization History gastritis-[facility]-increase d Prilosec BID and started Carafate QID-no EGD done 12/2012 Goals Section No Information Health Concerns No Information MEDICAL EQUIPMENT No Information MENTAL STATUS No Information FUNCTIONAL STATUS No Information ASSESSMENTS Encounter Date Diagnosis Assessment Notes Treatment Notes Treatm ent Clinical Notes Feb, Arthritis (ICD-10 - M19.90) PLAN OF TREATMENT Medication Medication Name Sig Start Date Stop Date Albuterol Sulfate HFA 108 (90 Base) MCG/ACT 2 puffs In halation Every 4 hours as needed for 90 day(s) Escitalopram Oxalate 10 MG 1 tablet Orally Once a day for 90 day (s) Levothyroxine Sodium 50 MCG 1 tablet on an empty stoma ch in the morning Orally Once a day for 90 day(s) Eletriptan Hydrobromide 40 MG 1 tablet as needed one t bay Orally prn migraine, may repeat x 1 after 2 hours for 30 day(s) Vitamin D3 5000 UNIT 1 Orally bid for 30 Humira 40 MG/0.4ML 0.4 ml Subcutaneous every 14 days for 90 day( s) Feb, Potassium Chloride 20 MEQ/15ML (10%) 7.5 ml with food Orally Once a day for 30 day(s) PredniSONE 5 MG 1 tablet Orally bid for 30 Days Voltaren 1 % as directed Transdermal qid for 30 day(s) Duloxetine HCl 60 MG 1 capsule Orally bid for 90 day(s) Chlorthalidone 25 MG 1 tab Orally every morning for 90 day(s) Vitamin B6 250 MG 1 tablet Orally Once a day Qnasl 80 MCG/ACT 2 puffs in each nostril Nasally Once a day for 30 Esomeprazole Magnesium 40 MG 1 capsule Orally every morning for 90 day(s) Jan, Topiramate 25 mg 2 tabs in am, 1 in pm Orally Twice a day for 90 day(s) Vitamin B 12 500 MCG 1 tab(s) Orally once a day Humira 40 MG/0.8ML 0.8 ml Subcutaneous every 14 days for 90 day( s) Feb, Telmisartan 40 MG 1 tab Orally Once a day for 90 day(s) Humira 40 MG/0.4ML 0.4 ml Subcutaneous every 2 weeks for 90 day( s) Feb, Fexofenadine HCl 180 MG 1 tablet Orally Once a day Next Appt Details Provider Name:Reginald Ng, 2020-04-12 1 1:45:00 AM, [address] [place], [address], Insurance Providers Payer Name Payer Address Payer Phone Insured Name Patient Relati onship to Insured Coverage Start Date Coverage End Date [facility] [id number] [facility] [address] ZIGGY ZAMBRANO
--- OUTSIDE RECORDS SUMMARY | 2020-04-06 07:57 | CCD | Continuity of Care Document ---
Author Author Santino FORREST M.D. Organization Unknown Address [address] [place] [address] Phone [phone] Care Team Providers Care Nat Instructor Name Role Phone Reginald Ng MD [facility] [phone] Problems Active Problems Provider Date Screening for malignant neoplasm of colon Michael ness M.D. Onset: 03/22/2020 Social History Type Date Description Comments Sex Unknown ETOH Use Occasionally Tobacco Use Start: Unknown Patient has never smoked Allergies, Adverse Reactions, Alerts Description No Known Drug Allergies Medications Active Medications SIG Qnty Indications Ordering Provide r Date Sutab [id number] Tablets as directed 1box Michael Forrest M.D. 03/22/2020 Levothyroxine Sodium 50mcg Tablets Take One Tablet By Mouth Every Day Unknown Prednisone 5mg Tablets Reginald Ng MD Topiramate 25mg Tablets Take Two Tablets By Mouth Every Morning And One Every Evening Unk nown Escitalopram Oxalate 10mg Tablets Reginald Ng MD Cymbalta 30mg Caps DR Part Unknown Calcium 250mg Capsules Unknown B1 Natural 250mg Tablets Unknown B6 Natural 100mg Tablets Unknown D 1000 25mcg (1000 Ut) Capsules Unknown Tylenol PM Extra Strength 1000-50mg/30ML Liquid Unknown Levalbuterol HCL 0.31mg/3ML Nebulizer Unknown Omeprazole 20mg Capsules DR Unknown Immunizations Description No Information Available Vital Signs Date Vital Result Comment 03/22/2020 4:02pm Height 70 inches 5'10" Weight 188.00 lb BP Systolic 134 mmHg BP Diastolic 93 mmHg Heart Rate 86 /min BMI (Body Mass Index) 27.0 kg/m2 Weight 85.277 kg Body Temperature 98.1 F Results Description No Information Available Procedures Description No Information Available Medical Devices Description No Information Available Encounters Type Date Location Provider Dx Diagnosis Office Visit 03/22/2020 3:15p Main Office Michael Forrest M.D. Z 12.11 Encounter for screening for malignant neoplasm of colon Assessments Date Code Description Provider 03/22/2020 Z12.11 Encounter for screening for ji gnant neoplasm of colon Michael Forrest M.D. Plan of Treatment Future Appointment(s):* 03/30/2020 7:00 am - Ange at Main Office * 04/06/2020 9:30 am - Michael Forrest M.D. at Main Office 03/22/2020 - Michael Forrest M.D.* Z12.11 Encounter for screening for malignant neoplasm of colon* Comments:* 49 yo wf who presents for a screening colonoscopy. No c/o abdominal pain, weight loss, change in bowel habits, or rectal bleeding. No family h/o colon cancer. No h/o chest pain, or sob. Plan:1.Schedule patient for a colonoscopy.2.Informed consent given to the patient.3.Pt. advised to stop aspirin,plavix, and anticoagulants at least 3 to 7 days prior to the procedure. Functional Status Description No Information Available Mental Status Description No Information Available Referrals Description No Information Available
--- OUTSIDE RECORDS SUMMARY | 2020-04-06 07:57 | CCD ---
Author Author [facility] Organization [facility] Address Unknown Phone Unavailable Care Team Providers Care Research And Insights Executive Name Role Phone Reginald Ng Unavailable PROBLEMS Type Condition ICD9-CM Code [id number] Code Onset Dates Condition S tatus SNOMED Code Notes Problem Vitamin D deficiency E55.9 Active 98505828 Problem Depression F32.9 Active 03770050 Problem Breast cancer screening Z12.39 Active 22376688 8 Problem Hypothyroid E03.9 Active 64039910 Problem Restless leg syndrome G25.81 Active 67676161 Problem S/P gastric bypass Z98.84 Active 136903219 Problem Hypokalemia E87.6 Active 43186012 Problem PUD (peptic ulcer disease) K27.9 Active 51305 003 Problem 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 Active 223262441 Problem Herpes zoster without complication B02.9 Activ e 252246063 Problem Mixed hyperlipidemia E78.2 Active 101909768 Problem Migraine without aura and without status migrain osus, not intractable G43.009 Active 035035843 Problem Arthritis M19.90 Active 4825476 Problem Spondylosis of lumbar region without myelopathy or radiculopathy M47.816 Active 65280280 Problem Asthma, mild intermittent J45.20 Active 402754 007 Problem Colon cancer screening Z12.11 Active 610016621 Problem Overweight E66.3 Active 716340152 Problem Fe deficiency anemia D50.9 Active 76847483 Problem Allergic rhinitis J30.9 Active 04059027 Problem Intractable migraine without aura and without st atus migrainosus G43.019 Active 673080551 Problem Oropharyngeal dysphagia R13.12 Active 19415197 Problem Gastroesophageal reflux disease with esophagitis K 21.0 Active 047652291 Problem Essential hypertension I10 Active 86051952 ALLERGIES Allergen (clinical drug ingredient) Drug/Non Drug Allergy do cumented on EMR Reaction Allergy Type Onset Date Status Vicks BabyRub([facility] Code:50932-20585) chest tightens Drug Al lergy Active Metamucil([facility] Code:12402-29564) Anaphylaxis Drug Allergy Active ENCOUNTERS from 1969 to 2020-01-22 Encounter Location Date Provider Diagnosis [address] [address] Jan, 020 Reginald Ng IMMUNIZATIONS Vaccine Route Administration Date Status Rocephin 1gm (Ceftriaxone) IM Intramuscular August 17, 2016 Admi nistered SOCIAL HISTORY Tobacco Use: Social History Observation Description Date Details (start date - stop date) Never Smoker Sex Assigned At : Social History Observation Description Sex Assigned At Unknown Education: Question Answer Notes Level of Education: Finished High School boces Language: Question Answer Notes Languages spoken: Upper Sorbian Buddhist: Question Answer Notes Buddhist 13 Sikh Sexual Hx: Question Answer Notes Had sex [...] MEDICATIONS Medication SIG (Take, Route, Frequency, Duration) Start Date En d Date Status Esomeprazole Magnesium 40 MG 1 capsule Orally every morning for 30 day(s) Jan, Active PredniSONE 5 MG (21) 6 tabs po x 1 day, then 5, 4 , 3, 2, 1, then stop Orally Daily with food for 6 days Jan, Active Albuterol Sulfate HFA 108 (90 Base) MCG/ACT 2 puffs In halation Every 4 hours as needed for 90 day(s) Active Tylenol PM 1 tab Oral OTC Active Telmisartan 40 MG 1 tab Orally Once a day for 90 day(s) Active Topiramate 25 mg 2 tabs in am, 1 in pm Orally Twice a day for 90 da y(s) Active Potassium Chloride 20 MEQ/15ML (10%) 7.5 ml with food Orally Once a day for 30 day(s) Jan, Active Levothyroxine Sodium 50 MCG 1 tablet on an empty stoma ch in the morning Orally Once a day for 90 day(s) Active Vitamin B6 250 MG 1 tablet Orally Once a day Active Eletriptan Hydrobromide 40 MG 1 tablet as needed one t bay Orally prn migraine, may repeat x 1 after 2 hours for 30 day(s) Active Duloxetine HCl 60 MG 1 capsule Orally bid for 90 day(s) Active Fexofenadine HCl 180 MG 1 tablet Orally Once a day Active Escitalopram Oxalate 10 MG 1 tablet Orally Once a day for 90 day(s) Active Celebrex 200 MG 1 capsule with food Orally Once a day fo r 30 day(s) Jan, Active Qnasl 80 MCG/ACT 2 puffs in each nostril Nasally Once a day for 30 Active Vitamin D3 5000 UNIT 1 Orally bid for 30 Active Vitamin B 12 500 MCG 1 tab(s) Orally once a day Active Voltaren 1 % as directed Transdermal qid for 30 day(s) Active Chlorthalidone 25 MG 1 tab Orally every morning for 90 day(s) Active PROCEDURES No Information RESULTS No Results REASON FOR VISIT celebrex isn't working MEDICAL (GENERAL) HISTORY Type Description Date Medical [...] History gastro-gastric fistual repair 2 to above -[facility] 11/2010 Surgical History tubal ligation 1993 Surgical History oophorectomy-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 Riggs-done 2 menorrhagia 10/19/2015 Surgical History bunionecotmy, spurs removed, and cyst removal-Dr. Treadwell-[facility] 06/29/16 Surgical History omental adhesion to bowel an d abdominal wall lysis; normal EGD-[facility] 05/06/18 Hospitalization History GI bleed 2 pouch ulcer/fistula 02/24 Hospitalization History gastritis-[facility]-increase d Prilosec BID and started Carafate QID-no EGD done 12/2012 Goals Section No Information Health Concerns No Information MEDICAL EQUIPMENT No Information MENTAL STATUS No Information FUNCTIONAL STATUS No Information ASSESSMENTS No Information PLAN OF TREATMENT Medication Medication Name Sig Start Date Stop Date Eletriptan Hydrobromide 40 MG 1 tablet as needed one t bay Orally prn migraine, may repeat x 1 after 2 hours for 30 day(s) Vitamin B 12 500 MCG 1 tab(s) Orally once a day Vitamin B6 250 MG 1 tablet Orally Once a day Levothyroxine Sodium 50 MCG 1 tablet on an empty stoma ch in the morning Orally Once a day for 90 day(s) Duloxetine HCl 60 MG 1 capsule Orally bid for 90 day(s) Albuterol Sulfate HFA 108 (90 Base) MCG/ACT 2 puffs In halation Every 4 hours as needed for 90 day(s) Fexofenadine HCl 180 MG 1 tablet Orally Once a day Telmisartan 40 MG 1 tab Orally Once a day for 90 day(s) Potassium Chloride 20 MEQ/15ML (10%) 7.5 ml with food Orally Once a day for 30 day(s) Jan, Escitalopram Oxalate 10 MG 1 tablet Orally Once a day for 90 day (s) Topiramate 25 mg 2 tabs in am, 1 in pm Orally Twice a day for 90 day(s) Qnasl 80 MCG/ACT 2 puffs in each nostril Nasally Once a day for 30 Voltaren 1 % as directed Transdermal qid for 30 day(s) Vitamin D3 5000 UNIT 1 Orally bid for 30 Chlorthalidone 25 MG 1 tab Orally every morning for 90 day(s) Celebrex 200 MG 1 capsule with food Orally Once a day fo r 30 day(s) Jan, Esomeprazole Magnesium 40 MG 1 capsule Orally every morning for 30 day(s) Jan, PredniSONE 5 MG (21) 6 tabs po x 1 day, then 5, 4 , 3, 2, 1, then stop Orally Daily with food for 6 days Jan, Insurance Providers Payer Name Payer Address Payer Phone Insured Name Patient Relati onship to Insured Coverage Start Date Coverage End Date BCBS OF [facility] [id number] [facility] [address] ZIGGY ZAMBRANO
--- OUTSIDE RECORDS SUMMARY | 2020-04-06 07:57 | CCD ---
Author Author [facility] Organization [facility] Address Unknown Phone Unavailable Care Team Providers Care Senior Security Architect Name Role Phone Reginald Ng Unavailable PROBLEMS Type Condition ICD9-CM Code [id number] Code Onset Dates Condition S tatus SNOMED Code Notes Problem Vitamin D deficiency E55.9 Active 46153909 Problem Depression F32.9 Active 81892561 Problem Breast cancer screening Z12.39 Active 89143383 8 Problem Hypothyroid E03.9 Active 81579531 Problem Restless leg syndrome G25.81 Active 75225803 Problem S/P gastric bypass Z98.84 Active 614583519 Problem Hypokalemia E87.6 Active 96193203 Problem PUD (peptic ulcer disease) K27.9 Active 74035 003 Problem 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 Active 736003433 Problem Herpes zoster without complication B02.9 Activ e 339866000 Problem Mixed hyperlipidemia E78.2 Active 824776685 Problem Migraine without aura and without status migrain osus, not intractable G43.009 Active 739043371 Problem Arthritis M19.90 Active 3484784 Problem Spondylosis of lumbar region without myelopathy or radiculopathy M47.816 Active 48997751 Problem Asthma, mild intermittent J45.20 Active 393435 007 Problem Colon cancer screening Z12.11 Active 377143621 Problem Overweight E66.3 Active 499294649 Problem Fe deficiency anemia D50.9 Active 22771680 Problem Allergic rhinitis J30.9 Active 72976112 Problem Intractable migraine without aura and without st atus migrainosus G43.019 Active 545821179 Problem Oropharyngeal dysphagia R13.12 Active 41990857 Problem Gastroesophageal reflux disease with esophagitis K 21.0 Active 051407894 Problem Essential hypertension I10 Active 18155701 ALLERGIES Allergen (clinical drug ingredient) Drug/Non Drug Allergy do cumented on EMR Reaction Allergy Type Onset Date Status Vicks BabyRub([facility] Code:21359-32259) chest tightens Drug Al lergy Active Metamucil([facility] Code:26480-28467) Anaphylaxis Drug Allergy Active ENCOUNTERS from 1969 to 2020-03-01 Encounter Location Date Provider Diagnosis [address] [address] Feb, Reginald Ng IMMUNIZATIONS Vaccine Route Administration Date [...] boces Language: Question Answer Notes Languages spoken: Malay Hindu: Question Answer Notes Hindu 13 Quaker Sexual Hx: Question Answer Notes Had sex [...] x 14 days, then BID f or day(s) Feb, Active Vitamin B6 250 MG [...] 30 day(s) Active PROCEDURES No Information RESULTS No Results REASON FOR VISIT headache MEDICAL (GENERAL) HISTORY Type Description Date Medical [...] History gastro-gastric fistual repair 2 to above -[facility] 11/2010 Surgical History tubal ligation 1993 Surgical History oophorectomy-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 Riggs-done 2 menorrhagia 10/19/2015 Surgical History bunionecotmy, spurs removed, and cyst removal-Dr. Treadwell-[facility] 06/29/16 Surgical History omental adhesion to bowel an d abdominal wall lysis; normal EGD-[facility] 05/06/18 Hospitalization History GI bleed 2 pouch [...] Once a day for 90 day (s) Next Appt Details Provider Name:Reginald Ng, 2020-03-15 0 1:45:00 PM, [address] [place] [address], [phone], Insurance Providers Payer Name Payer Address Payer Phone Insured Name Patient Relati onship to Insured Coverage Start Date Coverage End Date [facility] [id number] [facility] [id number] ZIGGY ZAMBRANO
--- OUTSIDE RECORDS SUMMARY | 2020-04-06 07:57 | CCD ---
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 Name Role Phone Reginald Ng Unavailable PROBLEMS Type Condition ICD9-CM Code [id number] Code Onset Dates Condition S tatus SNOMED Code Notes Problem Vitamin D deficiency E55.9 Active 21708124 Problem Depression F32.9 Active 48656152 Problem Breast cancer screening Z12.39 Active 02968141 8 Problem Hypothyroid E03.9 Active 46930950 Problem Restless leg syndrome G25.81 Active 36241701 Problem S/P gastric bypass Z98.84 Active 273607001 Problem Hypokalemia E87.6 Active 08941570 Problem PUD (peptic ulcer disease) K27.9 Active 87172 003 Problem 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 Active 666163413 Problem Herpes zoster without complication B02.9 Activ e 556859974 Problem Mixed hyperlipidemia E78.2 Active 740373843 Problem Migraine without aura and without status migrain osus, not intractable G43.009 Active 088325702 Problem Arthritis M19.90 Active 3458863 Problem Spondylosis of lumbar region without myelopathy or radiculopathy M47.816 Active 61397918 Problem Asthma, mild intermittent J45.20 Active 633913 007 Problem Colon cancer screening Z12.11 Active 667248663 Problem Overweight E66.3 Active 855114825 Problem Fe deficiency anemia D50.9 Active 08867469 Problem Allergic rhinitis J30.9 Active 96810044 Problem Intractable migraine without aura and without st atus migrainosus G43.019 Active 032577984 Problem Oropharyngeal dysphagia R13.12 Active 62221170 Problem Gastroesophageal reflux disease with esophagitis K 21.0 Active 246660386 Problem Essential hypertension I10 Active 49491006 ALLERGIES Allergen (clinical drug ingredient) Drug/Non Drug Allergy do cumented on EMR Reaction Allergy Type Onset Date Status Shantelle Ruvalcaba([facility] Code:73542-27461) chest tightens Drug Al lergy Active Metamucil Anaphylaxis Drug Allergy Active ENCOUNTERS from 1969 to 2020-03-16 Encounter Location Date Provider Diagnosis [address] [address] Feb, 020 Reginald Ng Depression F32.9 ; [...] boces Language: Question Answer Notes Languages spoken: French Restoration: Question Answer Notes Restoration 13 Bahai Sexual Hx: Question Answer Notes [...] FOR REFERRAL No Information VITAL SIGNS Weight 187 lbs Feb, Height 66 in Feb, BMI 30.18 kg/m2 Feb, Heart Rate 99 /min Feb, Respiratory Rate 18 /min Feb, Temperature 96.9 degrees Fahrenheit Feb, Oximetry 98 Feb, Blood pressure systolic 118 mm Hg Feb, Blood pressure diastolic 78 mm Hg Feb, MEDICATIONS Medication SIG (Take, [...] Information RESULTS No Results REASON FOR VISIT 4 wk f/u MEDICAL (GENERAL) HISTORY Type Description Date Medical [...] History gastro-gastric fistual repair 2 to above -[facility] 11/2010 Surgical History tubal ligation 1993 Surgical History oophorectomy-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 Riggs-done 2 menorrhagia 10/19/2015 Surgical History bunionecotmy, spurs removed, and cyst removal-Dr. Treadwell-[facility] 06/29/16 Surgical History omental adhesion to bowel an d abdominal wall lysis; normal EGD-[facility] 05/06/18 Hospitalization History GI bleed 2 pouch [...] CA), 3 maternal aunts c RA C: Dr. Cadet second opinion vs alternate TNFi Patient understands to call office [facility] if she experiences any fever, chills, abdominal pain, urinary symptoms or illness given that her immune system is suppressed with adalimumab 03/15/20 given persistent moderate disease activity (SDAI 17) and recurrence of pain/stiffness once prednisone weaned down to 5D for 3D; therefore, + adalimumab 40 q7D and increased pred 5 QD to 5 BID and OOW until fu apt 04/15/20 given +40H qW direct care nursing is flaring RA 02/29/20 patient stopped SSZ given persistent moderate frontal Roche since starting c resolution c dc 02/19/20 0.3/17, -Luis, -early SS profile; BUT, SDAI 18; therefore, + SSZ 500 QD x 14D, then BID, repeat pred 60/6D, then 5 QD 01/22/20 +pred 60/6D taper c eso 40 c marked improvement by 3rd day c benefit for ~1W 01/18/20 + jerson 200 QD s improvement and severe dyspepsia 01/12/20 CRP/ESR 0.3; B hip>knee/ankle, elbow pain c AM stiffness 1-2H worsening since ~06/201902/19/20 B hand/elbow/shoulder/SIJ/hip XR: B minimal ACJ OA 02/19/20 -hep B/C/TB Gold 01/25/20 -RF/CCP 2, -Stefan, -HLA B27, -LA 05/09/09 CCP 4, Stefan Feb, Essential hypertension (ICD-10 - I10) Stable on telmi 40 and CTD 25 qAM 02/29/20 19/0.7, 3.0 01/25/20 16/0.8, 3.1, 2.4; therefore, + K [...] phagitis (ICD-10 - K21.0) Patient remains asymptomatic on esomep 40 qAM 05/11/18 EGD (per patient) not able to [...] B1 138 (67-200) 06/2016 RBC zinc 1296 Feb, Fe deficiency anemia (ICD-10 - D50.9) favor 2 malabsorption 2 gb/PPI use patient colonoscopy (never had colonoscopy) cannot tolerate any po Fe-pill nor liquid-continue IV Venofer prn 01/13/20 12.5, 86, r30/1.3 04/08/19 12.8, 88, r31/1.6 09/2018 13.8, 91 05/2018 16%, 22 01/2018 12.9, 91, 16, 23% 03/2017 13.7, 90, 21%, 31 Feb, Hypothyroid (ICD-10 - E03.9) 01/13/20 2.6, 1.0 04/08/19 2.1, 0.9 on LT4 [...] MG 1 tablet Orally Once a day Treatment Notes Assessment Notes Clinical Notes Vitamin D deficiency 0-1 servings dietar y calicum daily04/08/19 36, 8.7, 1083 38, 8.6, 74 on D3 5K103/2017 23, 8.9, 1291 34, 9.5, 654/2016 36, 9.3, PTH 95; therefore, D3 5K QD to BID11/2018 BMD 0.3/-0.1/0.9 c 1/-3/1% change cw 03/2014; therefore, CCR Depression on escital 10, dulox 60 BID as per lumbar DJD1 restarted escitalo 10 and increased dulox as [...] nodulosis/liver CA), 3 maternal aunts c RAC: Dr. Cadet second opinion vs alternate TNFiPatient understands to call office [facility] if she experiences any fever, chills, abdominal pain, urinary symptoms or illness given that her immune system is suppressed with rsphwagujx67/29/20 given persistent moderate disease activity (SDAI 17) and recurrence of pain/stiffness once prednisone weaned down to 5D for 3D; therefore, + adalimumab 40 q7D and increased pred 5 QD to 5 BID and OOW until fu apt 04/15/20 given +40H qW direct care nursing is flaring RA02/29/20 patient stopped SSZ given persistent moderate frontal Roche since starting c resolution c dc02/19/20 0.3/17, -Luis, -early SS profile; BUT, SDAI 18; therefore, + SSZ 500 QD x 14D, then BID, repeat pred 60/6D, then 5 QD01/22/20 +pred 60/6D taper c eso 40 c marked improvement by 3rd day c benefit for ~1W01/18/20 + jerson 200 QD s improvement and severe igamsfhki94/27/20 CRP/ESR 0.3; B hip>knee/ankle, elbow pain c AM stiffness 1-2H worsening since ~ B hand/elbow/shoulder/SIJ/hip XR: B minimal ACJ OA02/19/20 -hep B/C/TB Gold01/25/20 -RF/CCP 2, -Stefan, -HLA B27, -LA2/06/01 CCP 4, Stefan Fe deficiency anemia favor 2 malabsorpti on 2 gb/PPI usepatient colonoscopy (never had colonoscopy)cannot tolerate any po Fe-pill nor liquid-continue IV Venofer prn1 12.5, 86, r30/1. 12.8, 88, r31/1. 13.8, 9105/2018 16%, 12.9, 91, 16, 23%03/2017 13.7, 90, 21%, 31 Essential hypertension Stable on telmi 4 0 and CTD 25 qAM105/01/19 19/0.7, 3.011/12/05 16/0.8, 3.1, 2.4; therefore, + K 10 [...] B12 518 on 500 po10/2012 RBC folate 47 B1 138 (67-200)06/2016 RBC zinc 1296 Gastroesophageal reflux disease with esophagitis Patient remains asymptomatic on esomep 40 qA05/11/18 EGD (per patient) not able to be [...] CT AP NAD07/2017 gb US normal Hypothyroid 01/13/20 2.6, 1.01/2 05/07 2.1, 0.9 on LT4 [...] MRI brain several T2H in PV and SCW/18 normal opthalomologic exam including VF and discs (x OD IOP 22) -Dr. Carter Mixed hyperlipidemia Continue dietary th erapy04/08/19 128//2018 141/70/110TSH as per hypo Asthma, mild intermittent [...] cancer Treatment Notes Test Name Order Date Comprehensive Metabolic Profile (CMP) 2020-03-16 ERYTHROCYTE SEDIMENTATION RATE 2020-03-16 CYCLIC CITRULLINATED PEPTIDE 2020-03-16 MAGNESIUM LEVEL 2020-03-16 C REACTIVE PROTEIN QUANTITATIV (At [facility]) 2020-03-16 H PYLORI SERUM QUANT IgG KATE 2020-03-16 CBC with Differential 2020-03-16 FERRITIN 2020-03-16 PTH INTACT 2020-03-16 VITAMIN D 25-HYDROXY 2020-03-16 ANTI-CARDIOLIPIN ANTIBODIES 2020-03-16 BETA-2 GLYCOPROTEIN 1 KATE SANIYA 2020-03-16 HEMOGLOBIN A1c 2020-03-16 COY Fibrosure [id number] 2020-03-16 Next Appt Details 3-4W, BW NOW Reason: Provider Name:Reginald Ng, 2020-04-12 1 1:45:00 AM, [address] [place], [address], Insurance Providers Payer Name Payer Address Payer Phone Insured Name Patient Relati onship to Insured Coverage Start Date Coverage End Date BCBS OF [place] [phone] [place] [address] ZIGGY ZAMBRANO self
--- OUTSIDE RECORDS SUMMARY | 2020-04-06 07:57 | CCD ---
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 Name Role Phone Reginald Ng Unavailable PROBLEMS Type Condition ICD9-CM Code CHV84-BY Code Onset Dates Condition S tatus SNOMED Code Notes Problem Vitamin D deficiency E55.9 Active 52179699 Problem Depression F32.9 Active 59587866 Problem Breast cancer screening Z12.39 Active 33355153 8 Problem Hypothyroid E03.9 Active 59675967 Problem Restless leg syndrome G25.81 Active 54329031 Problem S/P gastric bypass Z98.84 Active 471750828 Problem Hypokalemia E87.6 Active 41465559 Problem PUD (peptic ulcer disease) K27.9 Active 35649 003 Problem 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 Active 808022985 Problem Herpes zoster without complication B02.9 Activ e 788069903 Problem Mixed hyperlipidemia E78.2 Active 969625646 Problem Migraine without aura and without status migrain osus, not intractable G43.009 Active 773094130 Problem Arthritis M19.90 Active 7904882 Problem Spondylosis of lumbar region without myelopathy or radiculopathy M47.816 Active 32137517 Problem Asthma, mild intermittent J45.20 Active 460505 007 Problem Colon cancer screening Z12.11 Active 382104310 Problem Overweight E66.3 Active 208760018 Problem Fe deficiency anemia D50.9 Active 02134955 Problem Allergic rhinitis J30.9 Active 13580251 Problem Intractable migraine without aura and without st atus migrainosus G43.019 Active 387660254 Problem Oropharyngeal dysphagia R13.12 Active 18218882 Problem Gastroesophageal reflux disease with esophagitis K 21.0 Active 749129577 Problem Essential hypertension I10 Active 73834475 ALLERGIES Allergen (clinical drug ingredient) Drug/Non Drug Allergy do cumented on EMR Reaction Allergy Type Onset Date Status Vicks BabyRub([facility] Code:06951-01848) chest tightens Drug Al lergy Active Metamucil([facility] Code:43368-41638) Anaphylaxis Drug Allergy Active ENCOUNTERS from 1969 to 2020-02-23 Encounter Location Date Provider Diagnosis [address] [address] Feb, 020 Reginald Ng IMMUNIZATIONS Vaccine Route Administration [...] boces Language: Question Answer Notes Languages spoken: Albanian Yazidism: Question Answer Notes Yazidism 13 Confucianism Sexual Hx: Question Answer Notes Had sex [...] Information RESULTS No Results REASON FOR VISIT No Information MEDICAL (GENERAL) HISTORY Type Description Date Medical [...] History gastro-gastric fistual repair 2 to above -[facility] 11/2010 Surgical History tubal ligation 1993 Surgical History oophorectomy-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 Riggs-done 2 menorrhagia 10/19/2015 Surgical History bunionecotmy, spurs removed, and cyst removal-Dr. Treadwell-[facility] 06/29/16 Surgical History omental adhesion to bowel an d abdominal wall lysis; normal EGD-[facility] 05/06/18 Hospitalization History GI bleed 2 pouch [...] Provider Name:Reginald Ng, 2020-03-15 0 1:45:00 PM, [address] [place] [address], [phone], Insurance Providers Payer Name Payer Address Payer Phone Insured Name Patient Relati onship to Insured Coverage Start Date Coverage End Date BCBS OF [facility] [phone] [facility] [address] ZIGGY ZAMBRANO
--- OUTSIDE RECORDS SUMMARY | 2020-04-06 07:57 | CCD | Continuity of Care Document ---
Author Author Santino FORREST M.D. Organization Unknown Address [address] [place] [address] Phone [phone] Care Team Providers Care Special Certificate Dictator Name Role Phone Reginald Ng MD [facility] [phone] Problems Active Problems Provider Date Screening for malignant neoplasm of colon Michael ness M.D. Onset: 03/22/2020 Social History Type Date Description Comments Sex Unknown ETOH Use Occasionally Tobacco Use Start: Unknown Patient has never smoked Allergies, Adverse Reactions, Alerts Description No Known Drug Allergies Medications Active Medications SIG Qnty Indications Ordering Provide r Date Sutab [phone] Tablets as directed 1box Michael Forrest M.D. [...] Medical Devices Description No Information Available Encounters Description No Information Available Assessments Date Code Description Provider 03/22/2020 Z12.11 Encounter for screening for ji gnant neoplasm of colon Michael Forrest M.D. Plan of Treatment Future Appointment(s):* 04/06/2020 9:30 am - Michael Forrest M.D. [...]
--- OUTSIDE RECORDS SUMMARY | 2020-04-06 07:57 | CCD ---
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 Name Role Phone Reginald Ng Unavailable PROBLEMS Type Condition ICD9-CM Code SQH28-EH Code Onset Dates Condition S tatus SNOMED Code Notes Problem Vitamin D deficiency E55.9 Active 93817862 Problem Depression F32.9 Active 07296100 Problem Breast cancer screening Z12.39 Active 47742058 8 Problem Hypothyroid E03.9 Active 65307632 Problem Restless leg syndrome G25.81 Active 84817862 Problem S/P gastric bypass Z98.84 Active 240471182 Problem Hypokalemia E87.6 Active 98904663 Problem PUD (peptic ulcer disease) K27.9 Active 11878 003 Problem 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 Active 100203530 Problem Herpes zoster without complication B02.9 Activ e 612155876 Problem Mixed hyperlipidemia E78.2 Active 430136481 Problem Migraine without aura and without status migrain osus, not intractable G43.009 Active 043054856 Problem Arthritis M19.90 Active 8783201 Problem Spondylosis of lumbar region without myelopathy or radiculopathy M47.816 Active 81810109 Problem Asthma, mild intermittent J45.20 Active 849085 007 Problem Colon cancer screening Z12.11 Active 885361353 Problem Overweight E66.3 Active 614995497 Problem Fe deficiency anemia D50.9 Active 40597962 Problem Allergic rhinitis J30.9 Active 80681462 Problem Intractable migraine without aura and without st atus migrainosus G43.019 Active 360559463 Problem Oropharyngeal dysphagia R13.12 Active 90446412 Problem Gastroesophageal reflux disease with esophagitis K 21.0 Active 389275237 Problem Essential hypertension I10 Active 15572726 ALLERGIES Allergen (clinical drug ingredient) Drug/Non Drug Allergy do cumented on EMR Reaction Allergy Type Onset Date Status Vicks BabyRub([facility] Code:45746-86416) chest tightens Drug Al lergy Active Metamucil([facility] Code:35407-98858) Anaphylaxis Drug Allergy Active ENCOUNTERS from 1969 to 2020-01-19 Encounter Location Date Provider Diagnosis [address] [address] Dec, 020 Reginald Ng Arthritis M19.90 ; Depression F32.9 ; Essential hypertension I10 ; Gastroesophageal reflux [...] boces Language: Question Answer Notes Languages spoken: Solomon Islander Spiritism: Question Answer Notes Spiritism 13 Roman Catholic Sexual Hx: Question Answer Notes Had sex [...] FOR REFERRAL No Information VITAL SIGNS Weight 189.8 lbs Dec, Height 66 in Dec, BMI 30.63 kg/m2 Dec, Heart Rate 88 /min Dec, Respiratory Rate 18 /min Dec, Temperature 97.1 degrees Fahrenheit Dec, Oximetry 96% Dec, Blood pressure systolic 128 mm Hg Dec, Blood pressure diastolic 72 mm Hg Dec, MEDICATIONS Medication SIG (Take, Route, Frequency, Duration) Start Date En d Date Status Albuterol Sulfate HFA 108 (90 Base) MCG/ACT 2 puffs In halation Every 4 hours as needed for 90 day(s) Active Telmisartan 40 MG 1 tab Orally Once a day for 90 day(s) Active Tylenol PM 1 tab Oral OTC Active Potassium Chloride 20 MEQ/15ML (10%) 7.5 ml with food Orally Once a day for 30 day(s) Jan, Active Topiramate 25 mg 2 tabs in am, 1 in pm Orally Twice a day for 90 da y(s) Active Levothyroxine Sodium 50 MCG 1 tablet [...] food Orally Once a day fo r day(s) Jan, Active Qnasl 80 MCG/ACT 2 [...] 90 day(s) Active PROCEDURES No Information RESULTS REASON FOR VISIT 6 month follow up MEDICAL (GENERAL) HISTORY Type Description Date Medical [...] History bunionecotmy, spurs removed, and cyst removal-Dr. Treadwell-[facility] 06/29/16 Surgical History omental adhesion to bowel an d abdominal wall lysis; normal EGD-[facility] 05/06/18 Hospitalization History GI bleed 2 pouch ulcer/fistula 02/24 Hospitalization History gastritis-[facility]-increase d Prilosec BID and started Carafate QID-no EGD done 12/2012 Goals Section No Information Health Concerns No Information MEDICAL EQUIPMENT No Information MENTAL STATUS No Information FUNCTIONAL STATUS No Information ASSESSMENTS Encounter Date Diagnosis Notes Dec, Depression (ICD-10 - F32.9) Dec, Restless leg syndrome (ICD-10 - G25.81) Dec, Arthritis (ICD-10 - M19.90) Dec, Arthritis of foot (ICD-10 - M19.079) Dec, Gastroesophageal reflux disease with eso phagitis (ICD-10 - K21.0) Dec, S/P gastric bypass (ICD-10 - Z98.84) Dec, Essential hypertension (ICD-10 - I10) Dec, Vitamin D deficiency (ICD-10 - E55.9) Dec, Colon cancer screening (ICD-10 - Z12.11) Dec, Overweight (ICD-10 - E66.3) Dec, Asthma, mild intermittent (ICD-10 - J45. 20) Dec, Spondylosis of lumbar region without myelopathy or radiculopathy (ICD-10 - M47.816) Dec, Breast cancer screening (ICD-10 - Z12.39 ) Dec, Intractable migraine without aura and without status migrainosus (ICD-10 - G43.019) Dec, Hypothyroid (ICD-10 - E03.9) Dec, PUD (peptic ulcer disease) (ICD-10 - K27 .9) Dec, Fe deficiency anemia (ICD-10 - D50.9) Dec, Mixed hyperlipidemia (ICD-10 - E78.2) Dec, Allergic rhinitis (ICD-10 - J30.9) PLAN OF TREATMENT Medication Medication Name Sig [...] 1 capsule Orally bid for 90 day(s) Fexofenadine HCl 180 MG 1 tablet Orally Once a day Potassium Chloride 20 MEQ/15ML (10%) 7.5 ml [...] a day fo r 30 day(s) Jan, Albuterol Sulfate HFA 108 (90 Base) MCG/ACT 2 puffs In halation Every 4 hours as needed for 90 day(s) Telmisartan 40 MG 1 tab Orally Once a day for 90 day(s) Treatment Notes Assessment Notes Clinical Notes Vitamin D deficiency 0-1 servings dietar y calicum daily04/08/19 36, 8.7, 10805/2018 38, 8.6, 74 on D3 5K103/2017 23, 8.9, 12903/2017 34, 9.5, 654 36, 9.3, PTH 95; therefore, D3 5K QD to BID11/2018 BMD 0.3/-0.1/0.9 c 1/-3/1% change cw 03/2014; therefore, CCR Arthritis mother c RA c nodulo sis onset 27 (was on MTX-? 2secondary nodulosis/liver CA), 3 maternal aunts c RA01/12/20 B hip>knee/ankle, elbow pain c AM stiffness 1-2H worsening since ~ CCP 4, Stefan Restless leg syndrome present since mid 30s-prior to gb-never treatedFe as per Fe-kept ferritin >75/2015 increased to 0.5 c improvement, but then improved c improved Fe12/2015 ropinirole 0.25 qhs started-goal 2-4 Depression on escital 10, dulox 60 BID as per lumbar DJ03/30/19 restarted escitalo 10 and increased dulox as per lumbar04/2018 patient held escitalo 20 on own Fe deficiency anemia favor 2 malabsorpti on 2 gb/PPI usepatient colonoscopy (never had colonoscopy)cannot tolerate any po Fe-pill nor liquid-continue IV Venofer prn1 12.8, 88, r31/1. 13.8, 9105/2018 16%, 12.9, 91, 16, 23%03/2017 13.7, 90, 21%, 31 Essential hypertension Stable on telmi 4 0 and CTD 25 qAM1 k 3.1; therefore, + K 10 liquid (20 meQ/15 [...] B12 518 on 500 po10/2012 RBC folate 47/2014 B1 138 (67-200)06/2016 RBC zinc 1296 Gastroesophageal [...] CT AP NAD07/2017 gb US normal Hypothyroid 04/08/19 2.1, 0.9 on LT4 1.5, 1.0 Intractable migraine without aura and without status migrain osus Stable on topir 50/25 BID and eletript 40 QD prn2 given persistent daily classic migraine ROCHE for [...] cancer Treatment Notes Test Name Order Date WWBC Hi Screening Bilateral (Ultrasound if Indicated ) (3D Mammo) 2020-01-19 Future Test Test Name Order Date CYCLIC CITRULLINATED PEPTIDE 72996430 RHEUMATOID FACTOR QUANT [id number] LUPUS TYPE ANTICOAGULANT SCREE 67266928 CATY TITER & PATTERN [id number] RENAL PROFILE [id number] MAGNESIUM LEVEL [id number] Next Appt Details 4-5M, BW NOW Reason: Insurance Providers Payer Name Payer Address Payer Phone Insured Name Patient Relati onship to Insured Coverage Start Date Coverage End Date BCBS OF [place] [phone] [place] [facility] [address] ZIGGY ZAMBRANO self
--- OUTSIDE RECORDS SUMMARY | 2020-04-06 07:58 | CCD ---
Author Author [facility] Organization [facility] Address Unknown Phone Unavailable Care Team Providers Care Employee Health Nurse Name Role Phone Reginald Ng Unavailable PROBLEMS Type Condition ICD9-CM Code NYA38-VN Code Onset Dates Condition S tatus SNOMED Code Notes Problem Vitamin D deficiency E55.9 Active 50488914 Problem Depression F32.9 Active 51114293 Problem Breast cancer screening Z12.39 Active 51562720 8 Problem Hypothyroid E03.9 Active 10508372 Problem Restless leg syndrome G25.81 Active 96866133 Problem S/P gastric bypass Z98.84 Active 544874390 Problem Hypokalemia E87.6 Active 53868739 Problem PUD (peptic ulcer disease) K27.9 Active 93409 003 Problem 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 Active 894018571 Problem Herpes zoster without complication B02.9 Activ e 254181328 Problem Mixed hyperlipidemia E78.2 Active 281777216 Problem Migraine without aura and without status migrain osus, not intractable G43.009 Active 273702263 Problem Arthritis M19.90 Active 5300250 Problem Spondylosis of lumbar region without myelopathy or radiculopathy M47.816 Active 44815385 Problem Asthma, mild intermittent J45.20 Active 339545 007 Problem Colon cancer screening Z12.11 Active 577741049 Problem Overweight E66.3 Active 911905123 Problem Fe deficiency anemia D50.9 Active 82360334 Problem Allergic rhinitis J30.9 Active 57843918 Problem Intractable migraine without aura and without st atus migrainosus G43.019 Active 676307276 Problem Oropharyngeal dysphagia R13.12 Active 52171183 Problem Gastroesophageal reflux disease with esophagitis K 21.0 Active 976580057 Problem Essential hypertension I10 Active 04763203 ALLERGIES Allergen (clinical drug ingredient) Drug/Non Drug Allergy do cumented on EMR Reaction Allergy Type Onset Date Status Vicks BabyRub([facility] Code:45409-21275) chest tightens Drug Al lergy Active Metamucil([facility] Code:13742-12063) Anaphylaxis Drug Allergy Active ENCOUNTERS from 1970 to 2020-01-18 Encounter Location Date Provider Diagnosis [address] [address] Jan, 020 Reginald Ng IMMUNIZATIONS Vaccine Route [...] Vietnamese Hoahaoism: Question Answer Notes Hoahaoism 13 Jehovah'S Witness Sexual Hx: Question Answer Notes Had sex [...] Medical History MDD Medical History GERD-11/2017 normal EGD-[facility] Medical History obesity Medical History hyperlipidemia 2B [...] History gastro-gastric fistual repair 2 to above -[facility] 11/2010 Surgical History tubal ligation 1993 Surgical History oophorectomy-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 Riggs-done 2 menorrhagia 10/19/2015 Surgical History bunionecotmy, spurs removed, and cyst removal-Dr. Treadwell-[facility] 06/29/16 Surgical History omental adhesion to bowel an d abdominal wall lysis; normal EGD-[facility] 05/06/18 Hospitalization History GI bleed 2 pouch [...] Orally Once a day for 90 day(s) Insurance Providers Payer Name Payer Address Payer Phone Insured Name Patient Relati onship to Insured Coverage Start Date Coverage End Date BCBS OF [facility] [phone] [facility] [address] ZIGGY ZAMBRANO self
--- OUTSIDE RECORDS SUMMARY | 2020-04-06 07:58 | CCD ---
Author Author [facility] Address Unknown Phone Unavailable Care Team Providers Care Bag Patcher Name Role Phone Olegario Forrest MD Unavailable Unavailable Olegario Forrest MD Unavailable Unavailable Olegario Forrest MD Unavailable Unavailable Olegario Forrest MD Unavailable Unavailable Olegario Forrest MD Unavailable Unavailable Olegario Forrest MD Unavailable Unavailable Olegario Forrest MD Unavailable Unavailable Olegario Forrest MD Unavailable Unavailable Olegario Forrest MD Unavailable Unavailable Olegario Forrest MD Unavailable Unavailable Olegario Forrest MD Unavailable Unavailable Olegario Forrest MD Unavailable Unavailable Olegario Forrest MD Unavailable Unavailable Olegario Forrest MD Unavailable Unavailable Olegario Forrest MD Unavailable Unavailable Olegario Forrest MD Unavailable Unavailable Olegario Forrest MD Unavailable Unavailable Olegario Forrest MD Unavailable Unavailable Olegario Forrest MD Unavailable Unavailable Olegario Forrest MD Unavailable Unavailable Olegario Forrest MD Unavailable Unavailable Olegario Forrest MD Unavailable Unavailable Olegario Forrest MD Unavailable Unavailable Olegario Forrest MD Unavailable Unavailable Olegario Forrest MD Unavailable Unavailable Olegario Forrest MD Unavailable Unavailable Olegario Forrest MD Unavailable Unavailable Olegario Forrest MD Unavailable Unavailable Olegario Forrest MD Unavailable Unavailable Olegario Forrest MD Unavailable Unavailable Olegario Forrest MD Unavailable Unavailable Olegario Forrest MD Unavailable Unavailable Olegario Forrest MD Unavailable Unavailable Olegario Forrest MD Unavailable Unavailable Olegario Forrest MD Unavailable Unavailable Olegario Forrest MD Unavailable Unavailable Olegario Forrest MD Unavailable Unavailable Olegario Forrest MD Unavailable Unavailable Olegario Forrest MD Unavailable Unavailable Olegario Forrest MD Unavailable Unavailable Olegario Forrest MD Unavailable Unavailable Olegario Forrest MD Unavailable Unavailable Olegario Forrest MD Unavailable Unavailable Olegario Forrest MD Unavailable Unavailable Olegario Forrest MD Unavailable Unavailable Olegario Forrest MD Unavailable Unavailable Olegario Forrest MD Unavailable Unavailable Olegario Forrest MD Unavailable Unavailable Sharpe, M Barratt PA Unavailable Unavailable Sharpe, M Barratt PA Unavailable Unavailable Sharpe, M Barratt PA Unavailable Unavailable Sharpe, M Barratt PA Unavailable Unavailable Sharpe, M Barratt PA Unavailable Unavailable Sharpe, M Barratt PA Unavailable Unavailable Sharpe, M Barratt PA Unavailable Unavailable Sharpe, M Barratt PA Unavailable Unavailable Sharpe, M Barratt PA Unavailable Unavailable Sharpe, M Barratt PA Unavailable Unavailable Sharpe, M Barratt PA Unavailable Unavailable Sharpe, M Barratt PA Unavailable Unavailable Sharpe, M Barratt PA Unavailable Unavailable Sharpe, M Barratt PA Unavailable Unavailable Sharpe, M Barratt PA Unavailable Unavailable Sharpe, M Barratt PA Unavailable Unavailable Sharpe, M Barratt PA Unavailable Unavailable Sharpe, M Barratt PA Unavailable Unavailable Sharpe, M Barratt PA Unavailable Unavailable Sharpe, M Barratt PA Unavailable Unavailable Sharpe, M Barratt PA Unavailable Unavailable Sharpe, M Barratt PA Unavailable Unavailable Sahrpe, M Barratt PA Unavailable Unavailable Sharpe, M Barratt PA Unavailable Unavailable Sharpe, M Barratt PA Unavailable Unavailable Sharpe, M Barratt PA Unavailable Unavailable Shapre, M Barratt PA Unavailable Unavailable Re-disclosure Warning The records that you are about to access may contain information from federally-assisted alcohol or drug abuse programs. If such information is present, then the following federally mandated warning applies: This information has been disclosed to you from records protected by federal confidentiality rules (42 CFR part 2). The federal rules prohibit you from making any further disclosure of this information unless further disclosure is expressly permitted by the written consent of the person to whom it pertains or as otherwise permitted by 42 CFR part 2. A general authorization for the release of medical or other information is NOT sufficient for this purpose. The Federal rules restrict any use of the information to criminally investigate or prosecute any alcohol or drug abuse patient.The records that you are about to access may contain highly sensitive health information, the redisclosure of which is protected by Article 27-F of the [facility] Public Health law. If you continue you may have access to information: Regarding HIV / AIDS; Provided by facilities licensed or operated by the [facility] Office of Mental Health; or Provided by the [facility] Office for People With Developmental Disabilities. If such information is present, then the following [facility] mandated warning applies: This information has been disclosed to you from confidential records which are protected by state law. State law prohibits you from making any further disclosure of this information without the specific written consent of the person to whom it pertains, or as otherwise permitted by law. Any unauthorized further disclosure in violation of state law may result in a fine or half-way sentence or both. A general authorization for the release of medical or other information is NOT sufficient authorization for further disc losure. Allergies and Adverse Reactions Type Description Substance Reaction Status Data Source(s ) Drug allergy Metamucil Drug allergy Anaphylaxis Active eCW1 ([facility]) Drug allergy Vicks BabyRub Drug allergy chest tightens Active eC W1 ([facility]) Family History Family Member Name Family Member Gender Family Member Status Date o f Status Description Data Source(s) Unknown Unknown Problem MEDENT ([facility]) Encounters Encounter Providers Location Date Indications Data Source(s ) Outpatient Attender: Michael Forrest MD Main Office 03/22/2020 02:15:00 PM EST MEDENT ([facility]) Unknown [address] [facility] [address] 03/16/2020 12:00:00 AM EST eCW1 ([facility]) Outpatient [address] [facility] [address] 03/15/2020 12:00:00 AM EST eCW1 ([facility]) Unknown [address] [facility] [address] 02/29/2020 12:00:00 AM EST eCW1 ([facility]) Unknown [address] [facility] [address] 02/22/2020 12:00:00 AM EST eCW1 ([facility]) Outpatient [address] [facility] [address] 02/19/2020 12:00:00 AM EST eCW1 ([facility]) Unknown [address] [facility] [address] 01/22/2020 12:00:00 AM EST eCW1 ([facility] Unknown [address] [facility] [address] 01/18/2020 12:00:00 AM EST eCW1 ([facility]) Outpatient [address] [facility] [address] 01/12/2020 12:00:00 AM EDT eCW1 ([facility]) Office Visit Attender: Rachele JOHNSON [facility] 08:45:00 AM EDT MEDENT ([facility]) Office Visit Attender: Rachele JOHNSON Physical Therapy 09:00:00 AM EDT MEDENT ([facility]) Office Visit Attender: Rachele JOHNSON Physical Therapy 08:45:00 AM EDT MEDENT ([facility]) OFFICE OUTPATIENT NEW 30 MINUTES Attender: Rachele JOHNSON Ph ysical Therapy 10/13/2019 10:15:00 AM EDT MEDENT ([facility]) Unknown [address] [facility] [address] 09/25/2019 12:00:00 AM EDT eCW1 ([facility]) Unknown [address] [facility] [address] 09/04/2019 12:00:00 AM EDT eCW1 ([facility] access hospital[place] [address] [address] 06/25/2019 12:00:00 AM EDT eCW1 (Critical access hospital) Outpatient 04/29/2019 04:19:00 PM EST [facility] Outpatient 04/23/2019 10:06:00 PM EST [facility] [address] [address] 04/23/2019 12:00:00 AM EST eCW1 (Critical access hospital[place] [address] [address] 04/06/2019 12:00:00 AM EST eCW1 (Critical access hospital[place] [address] [address] 04/06/2019 12:00:00 AM EST eCW1 (Critical access hospital[place] [address] [address] 04/03/2019 12:00:00 AM EST eCW1 (Critical access hospital[place] [address] [address] 03/30/2019 12:00:00 AM EST eCW1 (Critical access hospital[place] [address] [address] 03/26/2019 12:00:00 AM EST eCW1 (Critical access hospital[place] [address] [address] 03/23/2019 12:00:00 AM EST eCW1 (Critical access hospital) Medications Medication Brand Name Start Date Product Form Dose Route Admi nistrative Instructions Pharmacy Instructions Status Indications Reaction Description Data Source(s) 1.479-0.188 gram 03/23/2020 12:00:00 AM EST tablet 24 TAKE BY MOUTH DIRECTED BY TAKE BY MOUTH DIRECTED BY SOLD: 03/25/2020 [facility] Sutab Sutab 03/22/2020 12:00:00 AM EST active MEDENT ([facility]) Humira 40 MG/0.4ML Humira 40 MG/0.4ML 03/16/2020 12:00:00 AM EST 0.4 {ml} active Humira 40 MG/0.4ML eCW1 ([facility]) Humira 40 MG/0.4ML Humira 40 MG/0.4ML 03/16/2020 12:00:00 AM EST 0.4 {ml} active Humira 40 MG/0.4ML eCW1 ([facility]) Humira 40 MG/0.4ML Humira 40 MG/0.4ML 03/16/2020 12:00:00 AM EST 0.4 {ml} active Humira 40 MG/0.4ML eCW1 ([facility]) 40 mg 03/16/2020 12:00:00 AM EST capsule,delayed release (DR/EC) 90 TAKE ONE CAPSULE BY MOUTH EVERY MORNING TAKE ONE CAPSULE BY MOUTH EVERY MORNING SOLD: 03/19/2020 [facility] Humira 40 MG/0.4ML Humira 40 MG/0.4ML 03/16/2020 12:00:00 AM EST 0.4 {ml} active Humira 40 MG/0.4ML eCW1 ([facility]) 0.8 ML adalimumab 50 MG/ML Prefilled Syringe [Humira] Humira 40 MG/0.8ML Humira 40 MG/0.8ML 03/15/2020 12:00:00 AM EST 0.8 {ml} acti ve Humira 40 MG/0.8ML eCW1 ([facility]) 0.8 ML adalimumab 50 MG/ML Prefilled Syringe [Humira] Humira 40 MG/0.8ML Humira 40 MG/0.8ML 03/15/2020 12:00:00 AM EST 0.8 {ml} acti ve Humira 40 MG/0.8ML eCW1 ([facility]) 5 mg 02/19/2020 12:00:00 AM EST tablet 60 TAKE 6 TABLETS BY MOUTH ON DAY 1, THEN TAKE 5 TABLETS ON DAY 2, THEN TAKE 4 TABLETS ON DAY 3, THEN TAKE 3 TABLETS ON DAY 4, THEN TAKE 2 TABLETS ON DAY 5, THEN TAKE 1 TABLET DAILY WITH FOOD TAKE 6 TABLETS BY MOUTH ON DAY 1, THEN TAKE 5 TABLETS ON DAY 2, THEN TAKE 4 TABLETS ON DAY 3, THEN TAKE 3 TABLETS ON DAY 4, THEN TAKE 2 TABLETS ON DAY 5, THEN TAKE 1 TABLET DAILY WITH FOOD SOLD: 02/22/2020 [facility] Sulfasalazine 500 MG Oral Tablet Sulfasalazine 500 MG 2019 12:00:00 AM EST 1.0 {tablet} active Sulfasalazi ne 500 MG eCW1 ([facility]) Sulfasalazine 500 MG Oral Tablet Sulfasalazine 500 MG 2019 12:00:00 AM EST 1.0 {tablet} active Sulfasalazi ne 500 MG eCW1 ([facility]) PredniSONE 5 MG (21) PredniSONE 5 MG (21) 02/19/2020 12:00:00 AM EST active PredniSONE 5 MG (21) eCW1 ([facility]) Escitalopram 10 MG Oral Tablet ESCITALOPRAM OXALATE 02/19/2020 1 2:00:00 AM EST tablet 90 TAKE ONE TABLET BY MOUTH EVERY D AY TAKE ONE TABLET BY MOUTH EVERY DAY SOLD: 02/22/2020 [facility] 5 mg 02/19/2020 12:00:00 AM EST tablet 60 TAKE 6 TABLETS BY MOUTH ON DAY 1, THEN TAKE 5 TABLETS ON DAY 2, THEN TAKE 4 TABLETS ON DAY 3, THEN TAKE 3 TABLETS ON DAY 4, THEN TAKE 2 TABLETS ON DAY 5, THEN TAKE 1 TABLET DAILY WITH FOOD TAKE 6 TABLETS BY MOUTH ON DAY 1, THEN TAKE 5 TABLETS ON DAY 2, THEN TAKE 4 TABLETS ON DAY 3, THEN TAKE 3 TABLETS ON DAY 4, THEN TAKE 2 TABLETS ON DAY 5, THEN TAKE 1 TABLET DAILY WITH FOOD SOLD: 03/22/2020 [facility] Sulfasalazine 500 MG Oral Tablet Sulfasalazine 500 MG 2019 12:00:00 AM EST 1.0 {tablet} active Sulfasalazi ne 500 MG eCW1 ([facility]) 500 mg 02/19/2020 12:00:00 AM EST tablet 180 TAKE ONE TABLET BY MOUTH EVERY DAY FOR 14 DAYS, THEN TAKE ONE TABLET BY MOUTH TWICE A DAY TAKE ONE TABLET BY MOUTH EVERY DAY FOR 14 DAYS, THEN TAKE ONE TABLET BY MOUTH TWICE A DAY SOLD: 02/22/2020 [facility] PredniSONE 5 MG (21) PredniSONE 5 MG (21) 02/19/2020 12:00:00 AM EST active PredniSONE 5 MG (21) eCW1 ([facility]) PredniSONE 5 MG (21) PredniSONE 5 MG (21) 02/19/2020 12:00:00 AM EST active PredniSONE 5 MG (21) eCW1 ([facility]) Esomeprazole 40 MG Delayed Release Oral Capsule Esomep razole Magnesium 40 MG Esomeprazole Magnesium 40 MG 01/22/2020 12:00:00 AM EST 1.0 {capsule} active Esomeprazole Magnesium 40 MG eCW 1 ([facility]) Esomeprazole 40 MG Delayed Release Oral Capsule ESOMEPRAZOLE MAGNESIUM 01/22/2020 12:00:00 AM EST capsule,delayed release(DR/EC) 30 TAKE ONE CAPSULE BY MOUTH EVERY MORNING TAKE ONE CAPSULE BY MOUTH EVERY MORNING SOLD: 01/23/2020 [facility] 5 mg 01/22/2020 12:00:00 AM EST tablet 21 TAKE 6 TABLETS BY MOUTH ON DAY ONE, THEN DECREASE BY 1 TABLET DAILY (5, 4, 3, 2, 1) WITH FOOD THEN STOP TAKE 6 TABLETS BY MOUTH ON DAY ONE, THEN DECREASE BY 1 TABLET DAILY (5, 4, 3, 2, 1) WITH FOOD THEN STOP SOLD: 01/23/2020 [facility] Esomeprazole 40 MG Delayed Release Oral Capsule Esomep razole Magnesium 40 MG Esomeprazole Magnesium 40 MG 01/22/2020 12:00:00 AM EST 1.0 {capsule} active Esomeprazole Magnesium 40 MG eCW 1 ([facility]) Esomeprazole 40 MG Delayed Release Oral Capsule Esomep razole Magnesium 40 MG Esomeprazole Magnesium 40 MG 01/22/2020 12:00:00 AM EST 1.0 {capsule} active Esomeprazole Magnesium 40 MG eCW 1 ([facility]) PredniSONE 5 MG (21) PredniSONE 5 MG (21) 01/22/2020 12:00:00 AM EST active PredniSONE 5 MG (21) eCW1 ([facility]) Esomeprazole 40 MG Delayed Release Oral Capsule Esomep razole Magnesium 40 MG Esomeprazole Magnesium 40 MG 01/22/2020 12:00:00 AM EST 1.0 {capsule} active Esomeprazole Magnesium 40 MG eCW 1 ([facility]) Esomeprazole 40 MG Delayed Release Oral Capsule Esomep razole Magnesium 40 MG Esomeprazole Magnesium 40 MG 01/22/2020 12:00:00 AM EST 1.0 {capsule} active Esomeprazole Magnesium 40 MG eCW 1 ([facility]) Esomeprazole 40 MG Delayed Release Oral Capsule Esomep razole Magnesium 40 MG Esomeprazole Magnesium 40 MG 01/22/2020 12:00:00 AM EST 1.0 {capsule} active Esomeprazole Magnesium 40 MG eCW 1 ([facility]) celecoxib 200 MG Oral Capsule [Celebrex] Celebrex 200 MG [facility] ebrex 200 MG 01/18/2020 12:00:00 AM EST 1.0 {capsule_with_food} active Celebrex 200 MG eCW1 ([facility]) Potassium Chloride 1.33 MEQ/ML Oral Solu tion Potassium Chloride 20 MEQ/15ML (10%) Potassium Chloride 20 MEQ/15ML (10%) 01/18/2020 12:00:00 AM EST 7.5 {ml_with_food} active Potassium Chlorid e 20 MEQ/15ML (10%) eCW1 ([facility]) celecoxib 200 MG Oral Capsule [Celebrex] Celebrex 200 MG [facility] ebrex 200 MG 01/18/2020 12:00:00 AM EST 1.0 {capsule_with_food} active Celebrex 200 MG eCW1 ([facility]) celecoxib 200 MG Oral Capsule [Celebrex] Celebrex 200 MG [facility] ebrex 200 MG 01/18/2020 12:00:00 AM EST 1.0 {capsule_with_food} active Celebrex 200 MG eCW1 ([facility]) Potassium Chloride 1.33 MEQ/ML Oral Solu tion Potassium Chloride 20 MEQ/15ML (10%) Potassium Chloride 20 MEQ/15ML (10%) 01/18/2020 12:00:00 AM EST 7.5 {ml_with_food} active Potassium Chlorid e 20 MEQ/15ML (10%) eCW1 ([facility]) Potassium Chloride 1.33 MEQ/ML Oral Solu tion Potassium Chloride 20 MEQ/15ML (10%) Potassium Chloride 20 MEQ/15ML (10%) 01/18/2020 12:00:00 AM EST 7.5 {ml_with_food} active Potassium Chlorid e 20 MEQ/15ML (10%) eCW1 ([facility]) 50 mcg 12/12/2019 12:00:00 AM EDT tablet 90 TAKE ONE TABLET BY MOUTH EVERY DAY TAKE ONE TABLET BY MOUTH EVERY DAY SOLD: 12/18/2019 [facility] 60 mg 12/12/2019 12:00:00 AM EDT capsule,delayed release (DR/EC) 180 TAKE ONE CAPSULE BY MOUTH TWICE A DAY TAKE ONE CAPSULE BY MOUTH TWICE A DAY SOLD: 12/18/2019 [facility] 50 mcg 12/12/2019 12:00:00 AM EDT tablet 90 TAKE ONE TABLET BY MOUTH EVERY DAY TAKE ONE TABLET BY MOUTH EVERY DAY SOLD: 04/05/2020 [facility] 25 mg 12/12/2019 12:00:00 AM EDT tablet 270 TAKE TWO TABLETS BY MOUTH EVERY MORNING AND ONE EVERY EVENING TAKE TWO TABLETS BY MOUTH EVERY MORNING AND ONE EVERY EVENING SOLD: 12/18/2019 [facility] 25 mg 12/12/2019 12:00:00 AM EDT tablet 90 TAKE ONE TABLET BY MOUTH EVERY DAY TAKE ONE TABLET BY MOUTH EVERY DAY SOLD: 03/22/2020 [facility] 25 mg 12/12/2019 12:00:00 AM EDT tablet 90 TAKE ONE TABLET BY MOUTH EVERY DAY TAKE ONE TABLET BY MOUTH EVERY DAY SOLD: 12/18/2019 [facility] Cephalexin 500 MG Oral Capsule CEPHALEXIN 11/16/2019 12:00:00 AM EDT capsule 40 TAKE ONE CAPSULE BY MOUTH FOUR TIMES A DAY DIRECTED TAKE ONE CAPSULE BY MOUTH FOUR TIMES A DAY DIRECTED SOLD: 11/17/2019 [facility] 150 mg 11/16/2019 12:00:00 AM EDT tablet 2 TAKE ONE TABLET BY MOUTH ONCE, REPEAT IN 10 DAYS TAKE ONE TABLET BY MOUTH ONCE, REPEAT IN 10 DAYS SOLD: 11/17/2019 [facility] 1 % 11/16/2019 12:00:00 AM EDT cream 400 APPLY A SMALL AMOUNT TO LEGS AND ABDOMEN TWO TIMES A DAY APPLY A SMALL AMOUNT TO LEGS AND ABDOMEN TWO TIMES A DAY SOLD: 11/17/2019 [facility] 25 mg 09/29/2019 12:00:00 AM EDT tablet 90 TAKE ONE TABLET BY MOUTH EVERY MORNING TAKE ONE TABLET BY MOUTH EVERY MORNING SOLD: 10/06/2019 [facility] 50 mcg 09/05/2019 12:00:00 AM EDT tablet 90 TAKE ONE TABLET BY MOUTH EVERY MORNING ON AN EMPTY STOMACH TAKE ONE TABLET BY MOUTH EVERY MORNING O N AN EMPTY STOMACH SOLD: 09/09/2019 [facility] 60 mg 09/05/2019 12:00:00 AM EDT capsule,delayed release (DR/EC) 180 TAKE ONE CAPSULE BY MOUTH TWICE A DAY TAKE ONE CAPSULE BY MOUTH TWICE A DAY SOLD: 09/09/2019 [facility] 60 mg 04/01/2019 12:00:00 AM EST capsule,delayed release (DR/EC) 60 TAKE ONE CAPSULE BY MOUTH TWO TIMES A DAY TAKE ONE CAPSULE BY MOUTH TWO TIMES A DAY SOLD: 04/01/2019 [facility] 25 mg 04/01/2019 12:00:00 AM EST tablet 30 TAKE ONE TABLET BY MOUTH EVERY MORNING TAKE ONE TABLET BY MOUTH EVERY MORNING SOLD: 04/01/2019 [facility] Escitalopram 10 MG Oral Tablet ESCITALOPRAM OXALATE 04/01/2019 1 2:00:00 AM EST tablet 30 TAKE ONE TABLET BY MOUTH ONCE DA TONY TAKE ONE TABLET BY MOUTH ONCE DAILY SOLD: 04/01/2019 [facility] Escitalopram 10 MG Oral Tablet Escitalopram Oxalate 10 MG Escitalopram Oxalate 10 MG 03/30/2019 12:00:00 AM EST 1.0 {tablet} activ e Escitalopram Oxalate 10 MG eCW1 ([facility]) Escitalopram 10 MG Oral Tablet Escitalopram Oxalate 10 MG Escitalopram Oxalate 10 MG 03/30/2019 12:00:00 AM EST active 1 tablet eCW1 ([facility]) Escitalopram 10 MG Oral Tablet Escitalopram Oxalate 10 MG Escitalopram Oxalate 10 MG 03/30/2019 12:00:00 AM EST 1.0 {tablet} activ e Escitalopram Oxalate 10 MG eCW1 ([facility]) 500 mg 02/18/2019 12:00:00 AM EST capsule 21 TAKE ONE CAPSULE BY MOUTH THREE TIMES A DAY UNTIL GONE TAKE ONE CAPSULE BY MOUTH THREE TIMES A DAY UNTIL GONE SOLD: 02/18/2019 [facility] 40 mg 02/05/2019 12:00:00 AM EST tablet 30 TAKE ONE TABLET BY MOUTH ONCE A DAY TAKE ONE TABLET BY MOUTH ONCE A DAY SOLD: 02/10/2019 [facility] 25 mg 02/04/2019 12:00:00 AM EST tablet 15 TAKE 1/2 TABLET BY MOUTH IN THE MORNING WITH FOOD ONCE A DAY TAKE 1/2 TABLET BY MOUTH IN THE MORNING WITH FOOD ONCE A DAY SOLD: 02/04/2019 [facility] Insurance Providers Payer name Policy type / Coverage type Policy ID Covered republican ID Covered republican's relationship to zayas Policy Zayas Plan Information [place]/307 [id number] SP [id number] [place] 306/806 [id number] SP [id number] [place]/307 [id number] SP [id number] [employer] BCBS B [id number] S VYS [place] 306/806 [id number] SP [id number] ANSI-Commercial [id number] ANSI-Commercial [id number] ANSI-Commercial [id number] ANSI-Commercial [id number] ANSI-Commercial [id number] ANSI-Commercial [id number] ANSI-Commercial [id number] [place]/307 [id number] SP [id number] ANSI-Commercial [id number] ANSI-Commercial [id number] [place]/307 [id number] SP [id number] ANSI-Commercial [id number] [employer] BCBS [id number] Meg VYS [id number] [employer] BCBS PI PI ANSI-Commercial [id number] ANSI-Commercial [id number] ANSI-Commercial [id number] ANSI-Commercial [id number] ANSI-Commercial [id number] ANSI-Commercial [id number] [place]/307 [id number] SP [id number] [place] 306/806 [id number] SP [id number] [place] 306/806 [id number] SP [id number] [place] 302/307 [id number] SP [id number] [employer] BCBS B [id number] S VYS [place] 306/806 [id number] SP [id number] [employer] BCBS Health Maintenance [employer] (HMO) Self BCBS/[employer] Commercial Self BCBS [place] PPO 302/307 [id number] SP [id number] [employer] [place] 306/806 [id number] SP [id number] [employer] [place] 306/806 [id number] SP [id number] Problems, Conditions, and Diagnoses Code Display Name Description Problem Type Effective Dates Data Source(s) 641337884 Screening for malignant neoplasm of colo n Screening for malignant neoplasm of colon Problem 03/22/2020 12:00:00 AM EST MEDENT ([facility]) Z12.11 [id number] Colon cancer screening Problem 01/12/2020 12 :00:00 AM EDT eCW1 ([facility]) M19.90 1324862 Arthritis Problem 01/12/2020 12:00:00 AM ED T eCW1 ([facility]) [id number] Essential hypertension Essential hypertension Problem 10/13/2019 12:00:00 AM EDT MEDENT ([facility] ) Surgeries/Procedures Procedure Description Date Indications Data Source(s) RADEX FINGR MINIMUM 2 VIEWS 12/02/2019 12:00:00 AM EDT MEDENT ([facility] ) RADEX FINGR MINIMUM 2 VIEWS 11/11/2019 12:00:00 AM EDT MEDENT ([facility]) CLTX DSTL PHLNGL FX FNGR/THMB W/O MANJ EA 10/13/2019 1 2:00:00 AM EDT MEDENT ([facility]) Results ID Date Data Source [id number] 04/01/2020 10:00:00 AM EST [facility] Name Value Range Interpretation Code Description Data Stephany rce(s) Supporting Document(s) SARS coronavirus 2 RNA Not Detected [facility] [place] This lab was ordered by [facility] and reported by [facility]. ID Date Data Source [id number] 03/14/2020 11:30:00 AM EST [facility] Name Value Range Interpretation Code Description Data Stephany rce(s) Supporting Document(s) SARS coronavirus 2 RNA [facility] This lab was ordered by [facility] and reported by [facility]. ID Date Data Source [id number] 03/07/2020 06:30:00 AM EST [facility] Name Value Range Interpretation Code Description Data Stephany rce(s) Supporting Document(s) SARS coronavirus 2 RNA [facility] This lab was ordered by [facility] and reported by [facility]. ID Date Data Source [id number] 02/29/2020 10:00:00 AM EST [facility] Name Value Range Interpretation Code Description Data Stephany rce(s) Supporting Document(s) SARS coronavirus 2 RNA [facility] This lab was ordered by [facility] and reported by [facility]. ID Date Data Source [id number] 02/22/2020 07:57:00 AM EST [facility] Name Value Range Interpretation Code Description Data Stephany rce(s) Supporting Document(s) SARS coronavirus 2 RNA [facility] This lab was ordered by [facility] and reported by [facility]. ID Date Data Source HEPATITIS B SURFACE ANTIGEN 02/19/2020 12:00:00 AM EST eCW1 ([facility]) Name Value Range Interpretation Code Description Data Stephany rce(s) Supporting Document(s) NEGATIVE NEGATIVE HEPATITIS B SURFACE ANTIG EN eCW1 ([facility]) ID Date Data Source HEPATITIS C ANTIBODY INDEX 02/19/2020 12:00:00 AM EST eCW1 ( [facility]) Name Value Range Interpretation Code Description Data Stephany rce(s) Supporting Document(s) < 0.0 <0.8 HEPATITIS C VIRUS KATE IND EX eCW1 ([facility]) ID Date Data Source ERYTHROCYTE SEDIMENTATION RATE 02/19/2020 12:00:00 AM EST eC W1 ([facility]) Name Value Range Interpretation Code Description Data Stephany rce(s) Supporting Document(s) 17 0-30 ERYTHROCYTE SEDIMENTATION RATE eCW1 ([facility]) ID Date Data Source C REACTIVE PROTEIN QUANTITATIV (At [facility]) 02/19/2020 12:00 :00 AM EST eCW1 ([facility]) Name Value Range Interpretation Code Description Data Stephany rce(s) Supporting Document(s) 0.30 0.00-0.30 C REACTIVE PROTEIN QUANTI TATIV eCW1 ([facility]) ID Date Data Source Comprehensive Metabolic Profile (CMP) 02/19/2020 12:00:00 AM EST eCW1 ([facility]) Name Value Range Interpretation Code Description Data Stephany rce(s) Supporting Document(s) 99 70-100 GLUCOSE, FASTING eCW1 ([facility]) 19 7-18 BLOOD UREA NITROGEN eCW1 ([facility]) 0.72 0.55-1.30 CREATININE FOR GFR eCW1 ([facility]) 3.0 3.5-5.1 POTASSIUM SERUM eCW1 ([facility]) 139 136-145 SODIUM LEVEL eCW1 ([facility]) > 60.0 >51 GLOMERULAR FILTRATION RATE eCW 1 ([facility]) 31 21-32 CARBON DIOXIDE LEVEL eCW1 ([facility]) 8.9 8.5-10.1 CALCIUM LEVEL eCW1 ([facility]) 102 98-107 CHLORIDE LEVEL eCW1 ([facility]) 10 12-78 ALT/SGPT eCW1 ([facility]) 0.4 0.2-1.0 BILIRUBIN,TOTAL eCW1 ([facility]) 50 45-117 ALKALINE PHOSPHATASE eCW1 ([facility]) 17 7-37 AST/SGOT eCW1 ([facility]) 4.1 3.2-5.2 ALBUMIN eCW1 ([facility]) 1.3 1.2-2.2 ALBUMIN/GLOBULIN RATIO eCW1 ([facility]) 7.2 6.4-8.2 TOTAL PROTEIN eCW1 ([facility]) ID Date Data Source PLZ SI JOINTS 02/19/2020 12:00:00 AM EST eCW1 ([facility]) Name Value Range Interpretation Code Description Data Stephany rce(s) Supporting Document(s) PLZ SI JOINTS eCW1 ([facility]) ID Date Data Source PLZ HIP COMPLETE (AP/LAT) 02/19/2020 12:00:00 AM EST eCW1 ([facility]) Name Value Range Interpretation Code Description Data Stephany rce(s) Supporting Document(s) PLZ HIP COMPLETE (AP/LAT) eCW1 ([facility]) ID Date Data Source PLZ HAND COMPLETE 02/19/2020 12:00:00 AM EST eCW1 ([facility]) Name Value Range Interpretation Code Description Data Stephany rce(s) Supporting Document(s) PLZ HAND COMPLETE eCW1 ([facility]) ID Date Data Source [id number] 02/15/2020 01:00:00 PM EST [facility] Name Value Range Interpretation Code Description Data Stephany rce(s) Supporting Document(s) SARS coronavirus 2 RNA [facility] This lab was ordered by [facility] and reported by [facility]. ID Date Data Source [id number] 02/09/2020 12:00:00 AM EST [facility] Name Value Range Interpretation Code Description Data Stephany rce(s) Supporting Document(s) SARS-CoV2 Rapid Antigen [facility] This lab was ordered by [facility] and reported by [facility]. ID Date Data Source [id number] 02/08/2020 09:00:00 AM EST [facility] Name Value Range Interpretation Code Description Data Stephany rce(s) Supporting Document(s) SARS coronavirus 2 RNA [facility] This lab was ordered by [facility] and reported by [facility]. ID Date Data Source [id number] 02/01/2020 10:14:00 AM EST [facility] Name Value Range Interpretation Code Description Data Stephany rce(s) Supporting Document(s) SARS coronavirus 2 RNA [facility] This lab was ordered by [facility] and reported by [facility]. ID Date Data Source [id number] 01/25/2020 11:35:00 AM EST [facility] Name Value Range Interpretation Code Description Data Stephany rce(s) Supporting Document(s) SARS coronavirus 2 RNA [facility] This lab was ordered by [facility] and reported by [facility]. ID Date Data Source [id number] 01/18/2020 12:23:00 PM EST [facility] Name Value Range Interpretation Code Description Data Stephany rce(s) Supporting Document(s) SARS coronavirus 2 RNA [facility] This lab was ordered by [facility] and reported by [facility]. ID Date Data Source CATY TITER & PATTERN 01/18/2020 08:12:29 AM EST eCW1 ([facility]) Name Value Range Interpretation Code Description Data Stephany rce(s) Supporting Document(s) Negative eCW1 ([facility]) ID Date Data Source CYCLIC CITRULLINATED PEPTIDE 01/18/2020 08:11:28 AM EST eCW1 ([facility]) Name Value Range Interpretation Code Description Data Stephany rce(s) Supporting Document(s) 5 eCW1 ([facility]) ID Date Data Source [id number] 01/18/2020 08:10:58 AM EST eCW1 ([facility]) Name Value Range Interpretation Code Description Data Stephany rce(s) Supporting Document(s) Negative eCW1 ([facility]) ID Date Data Source INSULIN LEVEL 01/18/2020 08:10:55 AM EST eCW1 ([facility]) Name Value Range Interpretation Code Description Data Stephany rce(s) Supporting Document(s) 7.0 eCW1 ([facility]) ID Date Data Source FREE T4 & TSH PANEL 01/14/2020 08:21:50 AM EDT eCW1 ([facility]) Name Value Range Interpretation Code Description Data Stephany rce(s) Supporting Document(s) 2.560 THYROID STIMULATING HORMONE eC W1 ([facility]) 0.96 FREE T4 eCW1 ([facility]) ID Date Data Source CBC with Differential 01/14/2020 08:21:46 AM EDT eCW1 ([facility]) Name Value Range Interpretation Code Description Data Stephany rce(s) Supporting Document(s) 4.63 RED BLOOD COUNT eCW1 ([facility]) 12.5 HEMOGLOBIN eCW1 ([facility]) 6.4 WHITE BLOOD COUNT eCW1 ([facility]) 39.7 HEMATOCRIT eCW1 ([facility]) 31.5 MEAN CORPUSCULAR HGB CONC eCW1 ([facility]) 27.0 MEAN CORPUSCULAR HEMOGLOBIN eC W1 ([facility]) 85.7 MEAN CORPUSCULAR VOLUME eCW1 ( [facility]) 13.4 RED CELL DISTRIBUTION WIDTH eC W1 ([facility]) 374 PLATELET COUNT, AUTOMATED eCW1 ([facility]) 29.4 LYMPH % eCW1 ([facility]) 56.5 NEUTROPHILS % eCW1 ([facility]) 1.3 BASO % eCW1 ([facility]) 1.9 LYMPH # eCW1 ([facility]) 7.9 MONO % eCW1 ([facility]) 3.6 NEUTROPHILS # eCW1 ([facility]) 4.6 EOS % eCW1 ([facility]) 0.3 EOS # eCW1 ([facility]) 0.1 BASO # eCW1 ([facility]) 0.5 MONO # eCW1 ([facility]) ID Date Data Source Reticulocyte Count Sysmex 01/14/2020 08:21:36 AM EDT eCW1 ([facility]) Name Value Range Interpretation Code Description Data Stephany rce(s) Supporting Document(s) 1.3 eCW1 ([facility]) ID Date Data Source [id number] 01/14/2020 08:21:24 AM EDT eCW1 ([facility]) Name Value Range Interpretation Code Description Data Stephany rce(s) Supporting Document(s) Hemoglobin A1c/Hemoglobin.total in Blood 5.6 HEMOGLOBIN A1c W1 ([facility]) ID Date Data Source CREATININE,RANDOM URINE 01/14/2020 08:21:21 AM EDT eCW1 ([facility]) Name Value Range Interpretation Code Description Data Stephany rce(s) Supporting Document(s) 79.6 eCW1 ([facility]) ID Date Data Source TOTAL PROTEIN,RANDOM URINE 01/14/2020 08:21:18 AM EDT eCW1 ( [facility]) Name Value Range Interpretation Code Description Data Stephany rce(s) Supporting Document(s) 23.6 eCW1 ([facility]) ID Date Data Source [id number] 01/11/2020 10:30:00 AM EDT [facility] Name Value Range Interpretation Code Description Data Stephany rce(s) Supporting Document(s) SARS coronavirus 2 RNA [facility] This lab was ordered by [facility] and reported by [facility]. ID Date Data Source [id number] 01/04/2020 01:00:00 PM EDT [facility] Name Value Range Interpretation Code Description Data Stephany rce(s) Supporting Document(s) SARS coronavirus 2 RNA [facility] This lab was ordered by [facility] and reported by [facility]. ID Date Data Source [id number] 12/28/2019 08:30:00 AM EDT [facility] Name Value Range Interpretation Code Description Data Stephany rce(s) Supporting Document(s) SARS coronavirus 2 RNA [facility] This lab was ordered by [facility] and reported by [facility]. ID Date Data Source [id number] 10/05/2019 01:27:00 PM EDT [facility] Name Value Range Interpretation Code Description Data Stephany rce(s) Supporting Document(s) SARS coronavirus 2 RNA [facility] This lab was ordered by [facility] and reported by [facility]. ID Date Data Source [id number] 09/28/2019 03:18:00 PM EDT [facility] Name Value Range Interpretation Code Description Data Stephany rce(s) Supporting Document(s) SARS coronavirus 2 RNA [facility] This lab was ordered by [facility] and reported by [facility]. ID Date Data Source [id number] 09/21/2019 02:50:00 PM EDT [facility] Name Value Range Interpretation Code Description Data Stephany rce(s) Supporting Document(s) SARS coronavirus 2 RNA [facility] This lab was ordered by [facility] and reported by [facility]. ID Date Data Source [id number] 09/14/2019 03:00:00 PM EDT [facility] Name Value Range Interpretation Code Description Data Stephany rce(s) Supporting Document(s) SARS CORONAVIRUS 2 RNA [facility] This lab was ordered by [facility] and reported by [facility]. ID Date Data Source [id number] 09/07/2019 05:30:00 AM EDT [facility] Name Value Range Interpretation Code Description Data Stephany rce(s) Supporting Document(s) SARS CORONAVIRUS 2 RNA [facility] This lab was ordered by [facility] and reported by [facility]. ID Date Data Source [id number] 2019 06:00:00 AM EDT [facility] Name Value Range Interpretation Code Description Data Stephany rce(s) Supporting Document(s) SARS CORONAVIRUS 2 RNA [facility] This lab was ordered by [facility] and reported by [facility]. ID Date Data Source [id number] 08/24/2019 01:33:00 PM EDT [facility] Name Value Range Interpretation Code Description Data Stephany rce(s) Supporting Document(s) SARS CORONAVIRUS 2 RNA [facility] This lab was ordered by [facility] and reported by [facility]. ID Date Data Source [id number] 08/20/2019 06:00:00 AM EDT [facility] Name Value Range Interpretation Code Description Data Stephany rce(s) Supporting Document(s) SARS CORONAVIRUS 2 RNA [facility] This lab was ordered by [facility] and reported by [facility]. ID Date Data Source [id number] 08/17/2019 05:30:00 AM EDT [facility] Name Value Range Interpretation Code Description Data Stephany rce(s) Supporting Document(s) SARS CORONAVIRUS 2 RNA [facility] This lab was ordered by [facility] and reported by [facility]. ID Date Data Source [id number] 08/13/2019 06:12:00 AM EDT [facility] Name Value Range Interpretation Code Description Data Stephany rce(s) Supporting Document(s) SARS CORONAVIRUS 2 RNA [facility] This lab was ordered by [facility] and reported by [facility]. ID Date Data Source [id number] 08/11/2019 11:42:00 AM EDT [facility] Name Value Range Interpretation Code Description Data Stephany rce(s) Supporting Document(s) SARS CORONAVIRUS 2 RNA [facility] This lab was ordered by [facility] and reported by [facility]. ID Date Data Source [id number] 08/05/2019 10:55:00 AM EDT [facility] Name Value Range Interpretation Code Description Data Stephany rce(s) Supporting Document(s) SARS CORONAVIRUS 2 RNA [facility] This lab was ordered by [facility] and reported by [facility]. ID Date Data Source [id number] 07/27/2019 10:05:00 AM EDT [facility] Name Value Range Interpretation Code Description Data Stephany rce(s) Supporting Document(s) SARS CORONAVIRUS 2 RNA [facility] This lab was ordered by [facility] and reported by [facility]. Procedure Social History Code Duration Value Status Description Data Source(s ) Smoking 03/15/2020 12:00:00 AM EST Never Smoker completed Never S moker eCW1 ([facility]) Smoking 03/15/2020 12:00:00 AM EST Never Smoker completed Never S moker eCW1 ([facility]) Smoking 02/19/2020 12:00:00 AM EST Never Smoker completed Never S moker eCW1 ([facility]) Smoking 02/19/2020 12:00:00 AM EST Never Smoker completed Never S moker eCW1 ([facility]) Smoking 02/19/2020 12:00:00 AM EST Never Smoker completed Never S moker eCW1 ([facility]) Smoking 01/12/2020 12:00:00 AM EDT Never Smoker completed Never S moker eCW1 ([facility]) Smoking 01/12/2020 12:00:00 AM EDT Never Smoker completed Never S moker eCW1 ([facility]) Smoking 01/12/2020 12:00:00 AM EDT Never Smoker completed Never S moker eCW1 ([facility]) Smoking 03/30/2019 12:00:00 AM EST Never Smoker completed Never S moker eCW1 ([facility]) Smoking 03/30/2019 12:00:00 AM EST Never Smoker completed Never S moker eCW1 ([facility]) Vital Signs ID Date Data Source UNK Name Value Range Interpretation Code Description Data Source(s) Body temperature 98.1 [degF] 98.1 [degF] MEDENT ([facility]) Body weight 85.277 kg 85.277 kg [facility] ([facility]) Body mass index (BMI) [Ratio] 27.0 kg/m2 27.0 k g/m2 [facility] ([facility]) Heart rate 86 /min 86 /min [facility] ([facility]) Diastolic blood pressure 93 mm[Hg] 93 mm[Hg] [facility] ([facility]) Systolic blood pressure 134 mm[Hg] 134 mm[Hg] M EDENT ([facility]) Body weight 188.00 [lb_av] 188.00 [lb_av] MEDEN T ([facility]) Body height 70 [in_i] 70 [in_i] [facility] ([facility]) 5'10" Diastolic blood pressure 78 mm[Hg] 78 mm[Hg] eCW1 ([facility]) Systolic blood pressure 118 mm[Hg] 118 mm[Hg] e CW1 ([facility]) Body temperature 96.9 [degF] 96.9 [degF] eCW1 ( [facility]) Respiratory rate 18 /min 18 /min eCW1 ([facility]) Heart rate 99 /min 99 /min eCW1 ([facility]) Body mass index (BMI) [Ratio] 30.18 kg/m2 30.18 kg/m2 eCW1 ([facility]) Body height 66 [in_i] 66 [in_i] eCW1 ([facility]) Body weight 187 [lb_av] 187 [lb_av] eCW1 ([facility]) Diastolic blood pressure 68 mm[Hg] 68 mm[Hg] eCW1 ([facility]) Systolic blood pressure 120 mm[Hg] 120 mm[Hg] e CW1 ([facility]) Body temperature 97.1 [degF] 97.1 [degF] eCW1 ( [facility]) Respiratory rate 18 /min 18 /min eCW1 ([facility]) Heart rate 88 /min 88 /min eCW1 ([facility]) Body mass index (BMI) [Ratio] 30.53 kg/m2 30.53 kg/m2 eCW1 ([facility]) Body height 66 [in_i] 66 [in_i] eCW1 ([facility]) Body weight 189.2 [lb_av] 189.2 [lb_av] eCW1 ([facility]) Diastolic blood pressure 72 mm[Hg] 72 mm[Hg] eCW1 ([facility]) Systolic blood pressure 128 mm[Hg] 128 mm[Hg] e CW1 ([facility]) Body temperature 97.1 [degF] 97.1 [degF] eCW1 ( [facility]) Respiratory rate 18 /min 18 /min eCW1 ([facility]) Heart rate 88 /min 88 /min eCW1 ([facility]) Body mass index (BMI) [Ratio] 30.63 kg/m2 30.63 kg/m2 eCW1 ([facility]) Body height 66 [in_i] 66 [in_i] eCW1 ([facility]) Body weight 189.8 [lb_av] 189.8 [lb_av] eCW1 ([facility]) Diastolic blood pressure 82 mm[Hg] 82 mm[Hg] eCW1 ([facility]) Systolic blood pressure 130 mm[Hg] 130 mm[Hg] e CW1 ([facility]) Body temperature 99.4 [degF] 99.4 [degF] eCW1 ( [facility]) Respiratory rate 18 /min 18 /min eCW1 ([facility]) Heart rate 84 /min 84 /min eCW1 ([facility]) Body mass index (BMI) [Ratio] 32.08 kg/m2 32.08 kg/m2 eCW1 ([facility]) Body height 66 [in_us] 66 [in_us] eCW1 ([facility]) Body weight Measured 198.8 [lb_av] 198.8 [lb_av ] eCW1 ([facility]) Patient Treatment Plan of Care Planned Activity Planned Date Details Description Data Source (s) Humira 40 MG/0.4ML 03/16/2020 12:00:00 AM EST eCW1 ([facility]) Humira 40 MG/0.4ML 03/16/2020 12:00:00 AM EST eCW1 ([facility]) Humira 40 MG/0.4ML 03/16/2020 12:00:00 AM EST eCW1 ([facility]) Humira 40 MG/0.4ML 03/16/2020 12:00:00 AM EST eCW1 ([facility]) 0.8 ML adalimumab 50 MG/ML Prefilled Syringe [Humira] 03/15/2020 12:00:00 AM EST eCW1 ([facility]) 0.8 ML adalimumab 50 MG/ML Prefilled Syringe [Humira] 03/15/2020 12:00:00 AM EST eCW1 ([facility]) PredniSONE 5 MG (21) 02/19/2020 12:00:00 AM EST eCW1 ([facility]) Sulfasalazine 500 MG Oral Tablet 02/19/2020 12:00:00 AM EST eCW1 ([facility]) PredniSONE 5 MG (21) 02/19/2020 12:00:00 AM EST eCW1 ([facility]) Sulfasalazine 500 MG Oral Tablet 02/19/2020 12:00:00 AM EST eCW1 ([facility]) PredniSONE 5 MG (21) 02/19/2020 12:00:00 AM EST eCW1 ([facility]) Sulfasalazine 500 MG Oral Tablet 02/19/2020 12:00:00 AM EST eCW1 ([facility]) Esomeprazole 40 MG Delayed Release Oral Capsule 01/22/2020 12:00:00 AM EST eCW1 ([facility]) Esomeprazole 40 MG Delayed Release Oral Capsule 01/22/2020 12:00:00 AM EST eCW1 ([facility]) PredniSONE 5 MG (21) 01/22/2020 12:00:00 AM EST eCW1 ([facility]) Esomeprazole 40 MG Delayed Release Oral Capsule 01/22/2020 12:00:00 AM EST eCW1 ([facility]) celecoxib 200 MG Oral Capsule [Celebrex] 01/18/2020 12:00:00 AM EST eCW1 ([facility]) Potassium Chloride 1.33 MEQ/ML Oral Solution 01/18/2020 12:00:00 AM EST eCW1 ([facility]) celecoxib 200 MG Oral Capsule [Celebrex] 01/18/2020 12:00:00 AM EST eCW1 ([facility]) Potassium Chloride 1.33 MEQ/ML Oral Solution 01/18/2020 12:00:00 AM EST eCW1 ([facility]) celecoxib 200 MG Oral Capsule [Celebrex] 01/18/2020 12:00:00 AM EST eCW1 ([facility]) Potassium Chloride 1.33 MEQ/ML Oral Solution 01/18/2020 12:00:00 AM EST eCW1 ([facility]) Escitalopram 10 MG Oral Tablet 03/30/2019 12:00:00 AM EST eCW1 ([facility]) Escitalopram 10 MG Oral Tablet 03/30/2019 12:00:00 AM EST eCW1 ([facility]) Escitalopram 10 MG Oral Tablet 03/30/2019 12:00:00 AM EST eCW1 ([facility])
[2020-04-06] MEDS ORDERED: propofoL 200 MG/20 ML VIAL As Ordered ONE (09:24)
--- NOTE | 2020-04-06 09:39 | ROOR ---
Patient Name: Santino Hale Procedure Date: 04/06/2020 9:12 AM Date of : 1970 Age: 49 Room: [facility] Gender: Female Note Status: Finalized Procedure: Total Colonoscopy to Cecum Indications: Screening for colorectal malignant neoplasm Providers: Michael Forrest MD Referring MD: Reginald Ng MD Requesting Provider: Medicines: Monitored Anesthesia Care Complications: No immediate complications. Procedure: Pre-Anesthesia Assessment: - The heart rate, respiratory rate, oxygen saturations, blood pressure, adequacy of pulmonary ventilation, and response to care were monitored throughout the procedure. The Colonoscope was introduced through the anus and advanced to the cecum, identified by appendiceal orifice and ileocecal valve. The colonoscopy was performed without difficulty. The patient tolerated the procedure well. The quality of the bowel preparation was excellent. Findings: The perianal and digital rectal examinations were normal. No other significant abnormalities were identified in a careful examination of the remainder of the colon. The exam was otherwise without abnormality on direct and retroflexion views. Impression: - The examination was otherwise normal on direct and retroflexion views. - No specimens collected. - The exam was otherwise normal to the cecum. Recommendation: - Patient has a contact number available for emergencies. The signs and symptoms of potential delayed complications were discussed with the patient. Return to normal activities tomorrow. Written discharge instructions were provided to the patient. - High fiber diet. - Discharge patient to home. - Continue present medications. - Repeat colonoscopy in 10 years for screening purposes. - Return to referring physician. - The findings and recommendations were discussed with the patient. Procedure Code(s): --- Professional --- 50443, Colonoscopy, flexible; diagnostic, including collection of specimen(s) by brushing or washing, when performed (separate procedure) Diagnosis Code(s): --- Professional --- Z12.11, Encounter for screening for malignant neoplasm of colon CPT copyright 2019 [employer] [employer]. All rights reserved. The codes documented in this report are preliminary and upon header operator review may be revised to meet current compliance requirements. Michael Forrest MD Michael Forrest MD 04/06/2020 9:39:13 AM Electronically signed by Michael Forrest MD Number of Addenda: 0 Note Initiated On: 04/06/2020 9:12 AM Estimated Blood Loss: Estimated blood loss: none.
[2020-04-06 10:10] VITALS: BP 121/90
== END 2020-04-06 10:21 | disposition home or self-care (01) ==
LOC: M OPP 07:52
PROVIDERS: ATTEND Internal Medicine Gastroenterology
DX: Z12.11 Encounter for screening for malignant neoplasm of colon (principal); I10 Essential (primary) hypertension; E03.9 Hypothyroidism, unspecified; R12 Heartburn; M06.9 Rheumatoid arthritis, unspecified; F32.9 Major depressive disorder, single episode, unspecified; G43.909 Migraine, unspecified, not intractable, without status migrainosus; J45.909 Unspecified asthma, uncomplicated; Z86.14 Personal history of Methicillin resistant Staphylococcus aureus infection; Z98.84 Bariatric surgery status; Z88.8 Allergy status to other drugs, medicaments and biological substances; Z79.899 Other long term (current) drug therapy

== ENCOUNTER → 2020-04-11 | Outpatient (REF) | payer BC ==
[~2020-04-11] MED LIST changes: -LIDOCAINE 2% 100MG/5ML SDV (FOR ANES.) As Ordered ONE; -NS 1,000 ML IV ONE; -propofoL 200 MG/20 ML VIAL As Ordered ONE
[2020-04-11 13:47] LABS: BASO # 0.1 10^3/uL (0.0-0.2); BASO % 0.9 % (0.0-1.0); EOS # 0.1 10^3/uL (0.0-0.5); EOS % 2.1 % (0.0-3.0); HEMATOCRIT 38.2 % (36.0-47.0); HEMOGLOBIN 12.5 g/dl (12.0-15.5); LYMPH # 1.6 10^3/uL (1.5-5.0); LYMPH % 24.6 % (24.0-44.0); MEAN CORPUSCULAR HEMOGLOBIN 27.7 pg (27.0-33.0); MEAN CORPUSCULAR HGB CONC 32.7 g/dl (32.0-36.5); MEAN CORPUSCULAR VOLUME 84.7 fl (80.0-96.0); MONO # 0.5 10^3/uL (0.0-0.8); NEUTROPHILS # 4.2 10^3/uL (1.5-8.5); NEUTROPHILS % 63.9 % (36.0-66.0); PLATELET COUNT, AUTOMATED 344 10^3/uL (150-450); RED BLOOD COUNT 4.51 10^6/uL (4.00-5.40); WHITE BLOOD COUNT 6.6 10^3/uL (4.0-10.0)
[2020-04-11 14:08] LABS: ERYTHROCYTE SEDIMENTATION RATE 8 mm/hr (0-30)
[2020-04-11 14:19] LABS: BLOOD UREA NITROGEN 12 MG/DL (7-18); CREATININE FOR GFR 0.73 MG/DL (0.55-1.30); GLOMERULAR FILTRATION RATE > 60.0 (>51); GLUCOSE, FASTING 91 MG/DL (70-100); PTH INTACT 81.3 PG/ML (18.5-88.0)
[2020-04-11 14:20] LABS: ALBUMIN 3.7 GM/DL (3.2-5.2); ALT/SGPT 13 U/L (12-78); BILIRUBIN,TOTAL 0.5 MG/DL (0.2-1.0); CARBON DIOXIDE LEVEL 33 MEQ/L (21-32); CHLORIDE LEVEL 99 MEQ/L (98-107); FERRITIN 6 NG/ML (8-252); MAGNESIUM LEVEL 2.1 MG/DL (1.8-2.4); POTASSIUM SERUM 3.3 MEQ/L (3.5-5.1); SODIUM LEVEL 139 MEQ/L (136-145); TOTAL 25(OH) VITAMIN D 36.8 NG/ML (30.0-100.0); TOTAL PROTEIN 6.8 GM/DL (6.4-8.2)
[2020-04-11 15:37] LABS: HEMOGLOBIN A1c 5.3 %
[2020-04-14 03:07] LABS: BETA-2 GLYCOPROTEIN I ABY IGA <9 (0-25); BETA-2 GLYCOPROTEIN I ABY IGG <9 (0-20); BETA-2 GLYCOPROTEIN I ABY IGM <9 (0-32); CARDIOLIPIN IGA ANTIBODY <9 APL U/mL (0-11); CARDIOLIPIN IGG ANTIBODY <9 GPL U/mL (0-14); CARDIOLIPIN IGM ANTIBODY <9 MPL U/mL (0-12); CYCLIC CITRULLINATED PEPTIDE 4 units (0-19); H PYLORI SERUM QUANT IgG ABY 0.43 (0.00-0.79)
== END ==
LOC: M SFHCPLAZ 09:44
PROVIDERS: ATTEND Family Medicine
DX: M19.90 Unspecified osteoarthritis, unspecified site (principal); D50.9 Iron deficiency anemia, unspecified; E55.9 Vitamin D deficiency, unspecified

== ENCOUNTER 2020-04-28 09:03 | Outpatient (CLI) | payer BC ==
[~2020-04-28] VITALS: Ht 170.2 cm; Wt 83.9 kg
[~2020-04-28 09:03] MED LIST changes: +IRON SUCROSE 25 MG in NS 25 ML IV ONE
[2020-04-28 09:17] VITALS: BP 125/96
[2020-04-28] MEDS ORDERED: IRON SUCROSE 225 MG in NS 225 ML IV ONE (10:00)
[2020-04-28 10:40] VITALS: BP 132/88
[2020-04-28 11:35] VITALS: BP 128/82
[2020-04-28 13:47] VITALS: BP 128/78
== END 2020-04-28 13:55 | disposition home or self-care (01) ==
LOC: M INFU 09:03
PROVIDERS: ATTEND Family Medicine
DX: D50.9 Iron deficiency anemia, unspecified (principal); Z88.8 Allergy status to other drugs, medicaments and biological substances
CPT/HCPCS: 96365; 96366; J1756

== ENCOUNTER → 2020-05-27 | Outpatient (REF) | payer BC ==
[~2020-05-27] MED LIST changes: -IRON SUCROSE 25 MG in NS 25 ML IV ONE
[2020-05-27 11:07] LABS: BASO # 0.1 10^3/uL (0.0-0.2); BASO % 0.9 % (0.0-1.0); EOS # 0.2 10^3/uL (0.0-0.5); EOS % 2.5 % (0.0-3.0); HEMATOCRIT 39.9 % (36.0-47.0); HEMOGLOBIN 12.7 g/dl (12.0-15.5); LYMPH % 31.1 % (24.0-44.0); MEAN CORPUSCULAR HGB CONC 31.8 g/dl (32.0-36.5); MEAN CORPUSCULAR VOLUME 88.1 fl (80.0-96.0); MONO # 0.6 10^3/uL (0.0-0.8); MONO % 9.9 % (2.0-8.0); NEUTROPHILS # 3.6 10^3/uL (1.5-8.5); NEUTROPHILS % 55.1 % (36.0-66.0); PLATELET COUNT, AUTOMATED 317 10^3/uL (150-450); RED BLOOD COUNT 4.53 10^6/uL (4.00-5.40); WHITE BLOOD COUNT 6.5 10^3/uL (4.0-10.0)
[2020-05-27 11:34] LABS: ALT/SGPT 14 U/L (12-78); BILIRUBIN,TOTAL 0.5 MG/DL (0.2-1.0); BLOOD UREA NITROGEN 12 MG/DL (7-18); CALCIUM LEVEL 9.5 MG/DL (8.5-10.1); CARBON DIOXIDE LEVEL 34 MEQ/L (21-32); CHLORIDE LEVEL 104 MEQ/L (98-107); CREATININE FOR GFR 0.71 MG/DL (0.55-1.30); GLOMERULAR FILTRATION RATE > 60.0 (>51); GLUCOSE, FASTING 97 MG/DL (70-100); POTASSIUM SERUM 3.4 MEQ/L (3.5-5.1); SODIUM LEVEL 143 MEQ/L (136-145)
[2020-05-27 11:45] LABS: ERYTHROCYTE SEDIMENTATION RATE 7 mm/hr (0-30)
== END ==
LOC: M PLALAB 08:19
PROVIDERS: ATTEND Family Medicine
DX: M06.9 Rheumatoid arthritis, unspecified (principal)

== ENCOUNTER → 2020-06-07 | Outpatient (REF) | payer BC ==
[2020-06-07 12:27] LABS: APPEARANCE, URINE HAZY (CLEAR); BACTERIA, URINE AUTO NEGATIVE (NEGATIVE); BILIRUBIN, URINE AUTO NEGATIVE (NEGATIVE); BLOOD, URINE BLOOD NEGATIVE (NEGATIVE); COLOR, URINE YELLOW (YELLOW); GLUCOSE, URINE (UA) AUTO NEGATIVE (NEGATIVE); KETONE, URINE AUTO NEGATIVE (NEGATIVE); LEUKOCYTE ESTERASE, URINE AUTO NEGATIVE (NEGATIVE); MUCUS, URINE SMALL (NEGATIVE); NITRITE, URINE AUTO NEGATIVE (NEGATIVE); PROTEIN, URINE AUTO 1+ mg/dL (NEGATIVE); RBC, URINE AUTO 1 /HPF (0-3); SPECIFIC GRAVITY URINE AUTO 1.024 (1.002-1.035); SQUAMOUS EPITHELIAL CELL UR AU 11 /HPF (0-6); WBC, URINE AUTO 1 /HPF (0-3)
[2020-06-07 13:10] LABS: TOTAL PROTEIN,RANDOM URINE 36.8 MG/DL (0.0-12.0)
[2020-06-07 13:31] LABS: COMPLEMENT C3 136 MG/DL (90-180); COMPLEMENT C4 24 MG/DL (10-40)
[2020-06-07 15:25] LABS: C REACTIVE PROTEIN QUANTITATIV < 0.30 MG/DL (0.00-0.30)
== END ==
LOC: M SFHCRHEU 10:17
PROVIDERS: ATTEND Internal Medicine
DX: M06.4 Inflammatory polyarthropathy (principal)

== ENCOUNTER → 2020-06-15 | Outpatient (CLI) | payer BC ==
--- NOTE | 2020-06-15 19:38 | REPPI ---
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 TECHNIQUE: There are four views of the right ankle and four views of the left ankle. FINDINGS: Right ankle four views: There is no fracture or dislocation. Mineralization and joint spaces are normal. There are no calcifications or foreign bodies. There are calcaneal plantar and Achilles spurs. Left ankle four views: There is no fracture or dislocation. Mineralization and joint spaces are normal. There are no calcifications or foreign bodies. There are calcaneal Achilles and plantar spurs. IMPRESSION: Essentially negative bilateral ankle series. <Electronically signed by Ivan Drummond > 06/15/201934
--- NOTE | 2020-06-15 19:42 | REPPI ---
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 COMPARISON: 02/19/2020. TECHNIQUE: AP view of the pelvis and AP and frog-leg views of the right hip and AP and frog-leg views of the left hip. FINDINGS: AP pelvis: Mineralization is normal. The sacroiliac articulations and hip articulations are unremarkable. There are numerous pelvic calcifications bilaterally, unchanged from the prior study, likely phleboliths although ureteral calculi are not entirely excluded on these plain films. Right hip two views: Mineralization and joint spaces are normal. There are no calcifications or foreign bodies except for the pelvic calcifications. There is no flattening or deformity of the femoral head. No fracture or dislocation. Left hip two views: Mineralization and joint spaces are normal. There are no calcifications or foreign bodies except for the pelvic calcifications. There is no flattening or deformity of the femoral head. No fracture or dislocation. IMPRESSION: Essentially negative AP view of the pelvis and negative bilateral hip series except for pelvic calcifications. These are likely phleboliths although ureteral calculi cannot be entirely excluded. This requires clinical correlation. <Electronically signed by Ivan Drummond > 06/15/201937
--- NOTE | 2020-06-15 19:45 | REPPI ---
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 TECHNIQUE: There are four views of each wrist. FINDINGS: Right wrist: There is no fracture or dislocation. Mineralization and joint spaces are normal. There are no calcifications or foreign bodies. Left wrist: There is osteoarthritis at the scaphotrapezium joint. The joint spaces are otherwise unremarkable. Mineralization is normal. There is no fracture, dislocation, calcification or foreign body. IMPRESSION: Essentially negative right wrist. Left wrist scaphotrapezium joint osteoarthritis. <Electronically signed by Ivan Drummond > 06/15/201940
--- NOTE | 2020-06-15 19:51 | REPPI ---
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 TECHNIQUE: There are four views of each foot. FINDINGS: Right foot: There is great toe MTP osteoarthritis with hallux valgus similar to the prior study. There has been interim osteotomy at the neck of the great toe metatarsal with single screw fixation as an interval change. Mineralization and joint spaces are otherwise unremarkable. There is a calcaneal plantar spur, unchanged. Mineralization is normal. Left foot: There is osteoarthritis at the great toe MTP articulation with hallux valgus, similar to the prior study. Mineralization and joint spaces are otherwise unremarkable and unchanged. There is a calcaneal plantar spur Mineralization is normal. IMPRESSION: There is osteoarthritis and hallux valgus at the great toe MTP articulations bilaterally. There is been an interim osteotomy at the right great toe metatarsal neck. There are bilateral calcaneal plantar spurs. <Electronically signed by Ivan Drummond > 06/15/201947
== END ==
LOC: M PLAIMG 11:29
PROVIDERS: ATTEND Internal Medicine
DX: M06.4 Inflammatory polyarthropathy (principal); M25.551 Pain in right hip; M25.552 Pain in left hip; M77.31 Calcaneal spur, right foot; M77.32 Calcaneal spur, left foot; Z89.411 Acquired absence of right great toe; M19.071 Primary osteoarthritis, right ankle and foot; M19.072 Primary osteoarthritis, left ankle and foot; M19.032 Primary osteoarthritis, left wrist

== ENCOUNTER → 2020-07-15 | Outpatient (REF) | payer BC ==
[2020-07-15 10:08] LABS: BASO # 0.1 10^3/uL (0.0-0.2); EOS # 0.2 10^3/uL (0.0-0.5); HEMATOCRIT 42.1 % (36.0-47.0); HEMOGLOBIN 13.7 g/dl (12.0-15.5); LYMPH # 1.9 10^3/uL (1.5-5.0); LYMPH % 31.9 % (24.0-44.0); MEAN CORPUSCULAR HEMOGLOBIN 28.7 pg (27.0-33.0); MEAN CORPUSCULAR HGB CONC 32.5 g/dl (32.0-36.5); MEAN CORPUSCULAR VOLUME 88.1 fl (80.0-96.0); MONO # 0.6 10^3/uL (0.0-0.8); MONO % 10.1 % (2.0-8.0); NEUTROPHILS # 3.2 10^3/uL (1.5-8.5); NEUTROPHILS % 53.5 % (36.0-66.0); PLATELET COUNT, AUTOMATED 338 10^3/uL (150-450); RED BLOOD COUNT 4.78 10^6/uL (4.00-5.40); WHITE BLOOD COUNT 5.9 10^3/uL (4.0-10.0)
[2020-07-15 10:27] LABS: ALBUMIN 4.3 GM/DL (3.2-5.2); ALT/SGPT 23 U/L (12-78); BILIRUBIN,DIRECT 0.1 MG/DL (0.0-0.2); BILIRUBIN,TOTAL 0.6 MG/DL (0.2-1.0); BLOOD UREA NITROGEN 16 MG/DL (7-18); CALCIUM LEVEL 9.8 MG/DL (8.5-10.1); CARBON DIOXIDE LEVEL 32 MEQ/L (21-32); CHLORIDE LEVEL 99 MEQ/L (98-107); CREATININE FOR GFR 0.62 MG/DL (0.55-1.30); GLOMERULAR FILTRATION RATE > 60.0 (>51); GLUCOSE, FASTING 109 MG/DL (70-100); SODIUM LEVEL 139 MEQ/L (136-145); TOTAL PROTEIN 7.4 GM/DL (6.4-8.2)
== END ==
LOC: M PLALAB 08:06
PROVIDERS: ATTEND Internal Medicine
DX: M06.4 Inflammatory polyarthropathy (principal)

== ENCOUNTER → 2020-07-15 | Outpatient (CLI) | payer BC ==
--- NOTE | 2020-07-15 10:48 | REPPI ---
INDICATION: DORSALGIA. COMPARISON: 03/01/2014. TECHNIQUE: Seven views lumbosacral spine including flexion and extension lateral views. FINDINGS: There is no compression fracture. There is normal lumbar lordosis and alignment. There is no subluxation with flexion and extension. There is mild diffuse spurring. There is very mild disc space narrowing and subchondral sclerosis at L1-2 and L4-5. There is sclerosis and spurring at the posterior facet joints of L5-S1. The posterior elements are intact. IMPRESSION: Degenerative changes as discussed above. No compression fracture or malalignment. <Electronically signed by Ivan Rico > 07/15/20 [id number]
== END ==
LOC: M PLAIMG 08:07
PROVIDERS: ATTEND Internal Medicine
DX: M51.36 Other intervertebral disc degeneration, lumbar region (principal); M51.37 Other intervertebral disc degeneration, lumbosacral region; M25.78 Osteophyte, vertebrae

== ENCOUNTER → 2020-09-08 | Outpatient (REF) | payer BC ==
[~2020-09-08] MED LIST changes: +OMEP40CA4 PO; -OMEP40CA97 PO
[2020-09-08 15:43] LABS: BASO # 0.1 10^3/uL (0.0-0.2); BASO % 1.4 % (0.0-1.0); EOS # 0.5 10^3/uL (0.0-0.5); EOS % 6.8 % (0.0-3.0); HEMATOCRIT 39.6 % (36.0-47.0); LYMPH # 1.8 10^3/uL (1.5-5.0); MEAN CORPUSCULAR HEMOGLOBIN 29.2 pg (27.0-33.0); MEAN CORPUSCULAR HGB CONC 32.8 g/dl (32.0-36.5); MONO # 0.9 10^3/uL (0.0-0.8); MONO % 11.2 % (2.0-8.0); NEUTROPHILS # 4.3 10^3/uL (1.5-8.5); NEUTROPHILS % 56.3 % (36.0-66.0); PLATELET COUNT, AUTOMATED 365 10^3/uL (150-450); RED BLOOD COUNT 4.45 10^6/uL (4.00-5.40); WHITE BLOOD COUNT 7.6 10^3/uL (4.0-10.0)
[2020-09-08 16:06] LABS: ALBUMIN 4.3 GM/DL (3.2-5.2); ALT/SGPT 18 U/L (12-78); BILIRUBIN,DIRECT 0.1 MG/DL (0.0-0.2); BILIRUBIN,TOTAL 0.4 MG/DL (0.2-1.0); BLOOD UREA NITROGEN 21 MG/DL (7-18); CALCIUM LEVEL 9.4 MG/DL (8.5-10.1); CARBON DIOXIDE LEVEL 34 MEQ/L (21-32); CHLORIDE LEVEL 103 MEQ/L (98-107); CREATININE FOR GFR 0.94 MG/DL (0.55-1.30); GLOMERULAR FILTRATION RATE > 60.0 (>51); GLUCOSE, FASTING 99 MG/DL (70-100); SODIUM LEVEL 141 MEQ/L (136-145); TOTAL PROTEIN 7.4 GM/DL (6.4-8.2)
== END ==
LOC: M SFHCPLAZ 14:21
PROVIDERS: ATTEND Internal Medicine
DX: M06.4 Inflammatory polyarthropathy (principal)

== ENCOUNTER → 2020-09-16 | Outpatient (CLI) | payer BC ==
[2020-09-16 13:13] LABS: BASO # 0.1 10^3/uL (0.0-0.2); BASO % 1.8 % (0.0-1.0); EOS # 0.3 10^3/uL (0.0-0.5); EOS % 4.7 % (0.0-3.0); LYMPH # 1.7 10^3/uL (1.5-5.0); MEAN CORPUSCULAR HEMOGLOBIN 28.4 pg (27.0-33.0); MEAN CORPUSCULAR HGB CONC 31.6 g/dl (32.0-36.5); MEAN CORPUSCULAR VOLUME 89.8 fl (80.0-96.0); MONO # 0.7 10^3/uL (0.0-0.8); MONO % 11.3 % (2.0-8.0); NEUTROPHILS # 3.3 10^3/uL (1.5-8.5); NEUTROPHILS % 53.9 % (36.0-66.0); PLATELET COUNT, AUTOMATED 324 10^3/uL (150-450); RED BLOOD COUNT 4.23 10^6/uL (4.00-5.40); WHITE BLOOD COUNT 6.2 10^3/uL (4.0-10.0)
[2020-09-16 13:45] LABS: ALBUMIN 3.9 GM/DL (3.2-5.2); ALT/SGPT 12 U/L (12-78); BILIRUBIN,TOTAL 0.4 MG/DL (0.2-1.0); BLOOD UREA NITROGEN 14 MG/DL (7-18); CARBON DIOXIDE LEVEL 31 MEQ/L (21-32); CHLORIDE LEVEL 105 MEQ/L (98-107); CHOLESTEROL LEVEL 204 MG/DL (<200); CHOLESTEROL RISK RATIO 2.518 (<5); CREATININE FOR GFR 0.56 MG/DL (0.55-1.30); FERRITIN 12 NG/ML (8-252); FREE T4 0.82 NG/DL (0.76-1.46); GLOMERULAR FILTRATION RATE > 60.0 (>51); GLUCOSE, FASTING 103 MG/DL (70-100); HDL CHOLESTEROL 81 MG/DL (>40); LDL CHOLESTEROL 111 MG/DL (<100); MAGNESIUM LEVEL 2.3 MG/DL (1.8-2.4); NON-HDL-C 123 MG/DL; NT-PRO BNP 129 PG/ML (<125); POTASSIUM SERUM 3.5 MEQ/L (3.5-5.1); SODIUM LEVEL 140 MEQ/L (136-145); THYROID STIMULATING HORMONE 0.714 uIU/ML (0.358-3.740); TOTAL PROTEIN 6.8 GM/DL (6.4-8.2); TRIGLYCERIDES LEVEL 60 MG/DL (<150); VITAMIN B12 LEVEL 514 PG/ML (247-911)
[2020-09-16 13:58] LABS: ERYTHROCYTE SEDIMENTATION RATE 13 mm/hr (0-30)
== END ==
LOC: M PLALAB 11:34
PROVIDERS: ATTEND Family Medicine
DX: I10 Essential (primary) hypertension (principal)

== ENCOUNTER → 2020-10-07 | Outpatient (CLI) | payer BC | LOC: M PLARAD 09:56 | PROVIDERS: ATTEND Family Medicine | DX: M47.816 Spondylosis without myelopathy or radiculopathy, lumbar region (principal) ==

== ENCOUNTER → 2020-10-27 | Outpatient (CLI) | payer BC ==
--- NOTE | 2020-10-27 12:58 | REP ---
INDICATION: RT WRIST PAIN SWELLING OF JOINT. COMPARISON: None. TECHNIQUE: 3T multiplanar MRI imaging of the right wrist was obtained using various sequences. FINDINGS: There is a focal area of T1 and T2 prolongation involving the distal ulna including the ulnar styloid. Mild T2 hyper signal is also seen in the soft tissues between that portion of the ulna and the extensor carpi ulnaris tendon. The tendon itself is unaffected. The under surface of the triangular fibrocartilage complex is irregular with slight T2 hyper signal, however, there is no evidence of a edwin tear. There is no abnormal fluid in the distal radioulnar joint. The scapholunate and lunatotriquetral ligaments appear to be intact. There is a focus of T2 hyper signal seen along the ulnar side of the distal pole the scaphoid in the smaller finding of similar appearance seen along the radial side. The chondral surfaces are smooth. Is no evidence of a joint effusion. All imaged flexor and extensor tendons are intact and of normal appearing low signal throughout. There is mild anterior bowing of the flexor retinaculum. The signal and there is no evidence of a mass or mass effect. Size of the imaged portion of the median nerve appears appropriate. IMPRESSION: 1. Small focus of edema and evidence of cystic changes involving the distal ulna as described above. This is seen in conjunction with a slight degree of edema in the related soft tissues as described above. The findings are nonspecific. I have no plain films for correlation other than the old films of 06/15/2020. That examination was within normal limits. 2. Chronic changes involving the distal pole the scaphoid. 3. 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 4. Other findings as described above. <Electronically signed by Julian Vick > 10/27/20 2309
[2020-10-27 15:14] LABS: BASO # 0.1 10^3/uL (0.0-0.2); BASO % 1.5 % (0.0-1.0); EOS # 0.5 10^3/uL (0.0-0.5); EOS % 6.6 % (0.0-3.0); HEMATOCRIT 40.6 % (36.0-47.0); HEMOGLOBIN 13.3 g/dl (12.0-15.5); LYMPH # 1.8 10^3/uL (1.5-5.0); LYMPH % 24.3 % (24.0-44.0); MEAN CORPUSCULAR HEMOGLOBIN 28.9 pg (27.0-33.0); MEAN CORPUSCULAR HGB CONC 32.8 g/dl (32.0-36.5); MEAN CORPUSCULAR VOLUME 88.3 fl (80.0-96.0); MONO # 0.6 10^3/uL (0.0-0.8); MONO % 8.2 % (2.0-8.0); NEUTROPHILS # 4.4 10^3/uL (1.5-8.5); NEUTROPHILS % 58.9 % (36.0-66.0); PLATELET COUNT, AUTOMATED 406 10^3/uL (150-450); WHITE BLOOD COUNT 7.5 10^3/uL (4.0-10.0)
[2020-10-27 15:45] LABS: ALBUMIN 4.2 GM/DL (3.2-5.2); ALT/SGPT 18 U/L (12-78); BILIRUBIN,DIRECT 0.2 MG/DL (0.0-0.2); BILIRUBIN,TOTAL 0.5 MG/DL (0.2-1.0); BLOOD UREA NITROGEN 17 MG/DL (7-18); CALCIUM LEVEL 8.8 MG/DL (8.5-10.1); CARBON DIOXIDE LEVEL 34 MEQ/L (21-32); CHLORIDE LEVEL 95 MEQ/L (98-107); GLOMERULAR FILTRATION RATE > 60.0 (>51); GLUCOSE, FASTING 94 MG/DL (70-100); POTASSIUM SERUM 2.6 MEQ/L (3.5-5.1); SODIUM LEVEL 137 MEQ/L (136-145); TOTAL PROTEIN 7.5 GM/DL (6.4-8.2)
== END ==
LOC: M PLAIMG 10:46
PROVIDERS: ATTEND Internal Medicine
DX: M25.431 Effusion, right wrist (principal); M06.4 Inflammatory polyarthropathy

== ENCOUNTER → 2020-11-04 | Outpatient (CLI) | payer BC ==
[2020-11-04 15:19] LABS: HEMATOCRIT 37.2 % (36.0-47.0)
[2020-11-04 15:25] LABS: BASO # 0.1 10^3/uL (0.0-0.2); BASO % 1.4 % (0.0-1.0); EOS # 0.4 10^3/uL (0.0-0.5); EOS % 5.8 % (0.0-3.0); HEMATOCRIT 37.5 % (36.0-47.0); HEMOGLOBIN 12.1 g/dl (12.0-15.5); LYMPH # 1.6 10^3/uL (1.5-5.0); LYMPH % 24.1 % (24.0-44.0); MEAN CORPUSCULAR HEMOGLOBIN 28.7 pg (27.0-33.0); MEAN CORPUSCULAR HGB CONC 32.3 g/dl (32.0-36.5); MEAN CORPUSCULAR VOLUME 88.9 fl (80.0-96.0); MONO # 0.7 10^3/uL (0.0-0.8); MONO % 11.5 % (2.0-8.0); NEUTROPHILS # 3.7 10^3/uL (1.5-8.5); NEUTROPHILS % 56.9 % (36.0-66.0); PLATELET COUNT, AUTOMATED 287 10^3/uL (150-450); RED BLOOD COUNT 4.22 10^6/uL (4.00-5.40); WHITE BLOOD COUNT 6.4 10^3/uL (4.0-10.0)
[2020-11-04 15:55] LABS: ALBUMIN 3.4 GM/DL (3.2-5.2); ALT/SGPT 15 U/L (12-78); BILIRUBIN,TOTAL 0.3 MG/DL (0.2-1.0); BLOOD UREA NITROGEN 23 MG/DL (7-18); CALCIUM LEVEL 8.3 MG/DL (8.5-10.1); CARBON DIOXIDE LEVEL 29 MEQ/L (21-32); CHLORIDE LEVEL 108 MEQ/L (98-107); CHOLESTEROL LEVEL 193 MG/DL (<200); CHOLESTEROL RISK RATIO 2.797 (<5); CREATININE FOR GFR 0.61 MG/DL (0.55-1.30); FERRITIN 10 NG/ML (8-252); FREE T4 0.77 NG/DL (0.76-1.46); GLOMERULAR FILTRATION RATE > 60.0 (>51); GLUCOSE, FASTING 94 MG/DL (70-100); HDL CHOLESTEROL 69 MG/DL (>40); LDL CHOLESTEROL 96 MG/DL (<100); MAGNESIUM LEVEL 2.2 MG/DL (1.8-2.4); NON-HDL-C 124 MG/DL; NT-PRO BNP 251 PG/ML (<125); POTASSIUM SERUM 3.8 MEQ/L (3.5-5.1); SODIUM LEVEL 141 MEQ/L (136-145); TOTAL PROTEIN 6.4 GM/DL (6.4-8.2); TRIGLYCERIDES LEVEL 138 MG/DL (<150)
[2020-11-04 15:56] LABS: VITAMIN B12 LEVEL 488 PG/ML (247-911)
== END ==
LOC: M PLALAB 12:22
PROVIDERS: ATTEND Family Medicine
DX: D50.9 Iron deficiency anemia, unspecified (principal); E03.9 Hypothyroidism, unspecified; E78.2 Mixed hyperlipidemia; I10 Essential (primary) hypertension

== ENCOUNTER → 2020-11-08 | Outpatient (REF) | payer BC | LOC: M LAB REF 12:03 | PROVIDERS: ATTEND Family Medicine | DX: R19.7 Diarrhea, unspecified (principal) ==

== ENCOUNTER → 2021-01-16 | Outpatient (REF) ==
[~2021-01-16] MED LIST changes: -KLOR20TA42 PO; +POTA-141 PO
== END ==
LOC: M LABSMTC 08:55
PROVIDERS: ATTEND Family Medicine
DX: Z11.52 Encounter for screening for COVID-19 (principal); Z20.822 Contact with and (suspected) exposure to COVID-19

== ENCOUNTER → 2021-03-13 | Outpatient (REF) ==
[~2021-03-13] MED LIST changes: +HUMI40KI2; +LEFL1TAB4; +TELM1TAB35
[2021-03-13 12:30] LABS: RSV AMPLIFICATION NEGATIVE (NEGATIVE)
== END ==
LOC: M LABSMTC 10:45
PROVIDERS: ATTEND Family Medicine
DX: Z20.822 Contact with and (suspected) exposure to COVID-19 (principal)

== ENCOUNTER → 2021-04-07 | Outpatient (CLI) | payer BC ==
[2021-04-07 10:41] LABS: BASO # 0.1 10^3/uL (0.0-0.2); BASO % 1.2 % (0.0-1.0); EOS # 0.4 10^3/uL (0.0-0.5); EOS % 7.4 % (0.0-3.0); HEMATOCRIT 38.5 % (36.0-47.0); HEMOGLOBIN 12.4 g/dl (12.0-15.5); LYMPH # 1.8 10^3/uL (1.5-5.0); LYMPH % 36.3 % (24.0-44.0); MEAN CORPUSCULAR HEMOGLOBIN 27.6 pg (27.0-33.0); MEAN CORPUSCULAR HGB CONC 32.2 g/dl (32.0-36.5); MEAN CORPUSCULAR VOLUME 85.6 fl (80.0-96.0); MONO # 0.6 10^3/uL (0.0-0.8); MONO % 12.4 % (2.0-8.0); NEUTROPHILS # 2.1 10^3/uL (1.5-8.5); NEUTROPHILS % 42.3 % (36.0-66.0); PLATELET COUNT, AUTOMATED 258 10^3/uL (150-450)
[2021-04-07 11:14] LABS: ALBUMIN 3.8 GM/DL (3.2-5.2); ALT/SGPT 20 U/L (12-78); BILIRUBIN,TOTAL 0.5 MG/DL (0.2-1.0); BLOOD UREA NITROGEN 18 MG/DL (7-18); CARBON DIOXIDE LEVEL 30 MEQ/L (21-32); CHLORIDE LEVEL 104 MEQ/L (98-107); CREATININE FOR GFR 0.53 MG/DL (0.55-1.30); FERRITIN 17 NG/ML (8-252); GLOMERULAR FILTRATION RATE > 60.0 (>51); GLUCOSE, FASTING 93 MG/DL (70-100); MAGNESIUM LEVEL 2.4 MG/DL (1.8-2.4); NT-PRO BNP 131 PG/ML (<125); POTASSIUM SERUM 3.7 MEQ/L (3.5-5.1); SODIUM LEVEL 141 MEQ/L (136-145); TOTAL PROTEIN 6.9 GM/DL (6.4-8.2)
[2021-04-07 11:17] LABS: TOTAL PROTEIN,RANDOM URINE 23.7 MG/DL (0.0-12.0)
[2021-04-07 11:19] LABS: TOTAL 25(OH) VITAMIN D 44.2 NG/ML (30.0-100.0)
[2021-04-07 11:20] LABS: ERYTHROCYTE SEDIMENTATION RATE 17 mm/hr (0-30); PTH INTACT 77.3 PG/ML (18.5-88.0)
== END ==
LOC: M PLALAB 09:00
PROVIDERS: ATTEND Family Medicine
DX: M06.00 Rheumatoid arthritis without rheumatoid factor, unspecified site (principal); D50.9 Iron deficiency anemia, unspecified; E55.9 Vitamin D deficiency, unspecified; I10 Essential (primary) hypertension

== ENCOUNTER → 2021-05-12 | Outpatient (REF) | payer BC ==
[2021-05-12 17:31] LABS: BASO # 0.2 10^3/uL (0.0-0.2); BASO % 2.2 % (0.0-1.0); EOS % 11.6 % (0.0-3.0); HEMATOCRIT 40.1 % (36.0-47.0); HEMOGLOBIN 12.9 g/dl (12.0-15.5); LYMPH # 1.9 10^3/uL (1.5-5.0); LYMPH % 22.4 % (24.0-44.0); MEAN CORPUSCULAR HEMOGLOBIN 28.4 pg (27.0-33.0); MEAN CORPUSCULAR HGB CONC 32.2 g/dl (32.0-36.5); MEAN CORPUSCULAR VOLUME 88.1 fl (80.0-96.0); MONO # 0.8 10^3/uL (0.0-0.8); MONO % 9.4 % (2.0-8.0); NEUTROPHILS # 4.5 10^3/uL (1.5-8.5); NEUTROPHILS % 54.2 % (36.0-66.0); PLATELET COUNT, AUTOMATED 368 10^3/uL (150-450); RED BLOOD COUNT 4.55 10^6/uL (4.00-5.40); WHITE BLOOD COUNT 8.3 10^3/uL (4.0-10.0)
[2021-05-12 17:57] LABS: TOTAL PROTEIN,RANDOM URINE 12.6 MG/DL (0.0-12.0)
[2021-05-12 18:02] LABS: ALBUMIN 4.5 GM/DL (3.2-5.2); ALT/SGPT 22 U/L (12-78); BILIRUBIN,DIRECT 0.1 MG/DL (0.0-0.2); BILIRUBIN,TOTAL 0.5 MG/DL (0.2-1.0); BLOOD UREA NITROGEN 21 MG/DL (7-18); CALCIUM LEVEL 8.9 MG/DL (8.5-10.1); CARBON DIOXIDE LEVEL 33 MEQ/L (21-32); CHLORIDE LEVEL 103 MEQ/L (98-107); COMPLEMENT C3 112 MG/DL (90-180); COMPLEMENT C4 19 MG/DL (10-40); CREATININE FOR GFR 0.78 MG/DL (0.55-1.30); GLOMERULAR FILTRATION RATE > 60.0 (>51); GLUCOSE, FASTING 84 MG/DL (70-100); POTASSIUM SERUM 3.4 MEQ/L (3.5-5.1); SODIUM LEVEL 141 MEQ/L (136-145); TOTAL PROTEIN 7.9 GM/DL (6.4-8.2)
[2021-05-12 18:41] LABS: ERYTHROCYTE SEDIMENTATION RATE 22 mm/hr (0-30)
[2021-05-12 19:17] LABS: APPEARANCE, URINE MANUAL CLOUDY (CLEAR); COLOR, URINE MANUAL YELLOW (YELLOW)
[2021-05-12 19:19] LABS: SPECIFIC GRAVITY,URINE MANUAL 1.025 (1.002-1.035)
[2021-05-12 19:20] LABS: BILIRUBIN, URINE MANUAL NEGATIVE (NEGATIVE); BLOOD URINE MANUAL NEGATIVE (NEGATIVE); GLUCOSE, URINE (UA) MANUAL NEGATIVE (NEGATIVE); KETONE, URINE MANUAL 1+ mg/dL (NEGATIVE); LEUKOCYTE ESTERASE, URINE MAN POSITIVE (NEGATIVE); NITRITE, URINE MANUAL NEGATIVE (NEGATIVE); PROTEIN, URINE MANUAL TRACE mg/dL (NEGATIVE); UROBILINOGEN, URINE MANUAL NORMAL (NORMAL)
[2021-05-12 19:38] LABS: AMORPHOUS SEDIMENT, URINE LARGE AMOUNT (NEGATIVE); BACTERIA, URINE NONE SEEN; HYALINE CAST, URINE NONE SEEN /lpf (0-1); RBC, URINE NONE SEEN /hpf (0-3); SQUAMOUS EPITHELIAL CELL URINE LARGE AMOUNT /hpf (SMALL AMT)
== END ==
LOC: M SFHCRHEU 11:29
PROVIDERS: ATTEND Internal Medicine
DX: M06.4 Inflammatory polyarthropathy (principal)

== ENCOUNTER → 2021-05-19 | Outpatient (CLI) | payer BC ==
[~2021-05-19] MED LIST changes: -D31000TA2 PO; +VITA100093 PO
== END ==
LOC: M RAD 08:07
PROVIDERS: ATTEND Internal Medicine
DX: M25.831 Other specified joint disorders, right wrist (principal); M79.89 Other specified soft tissue disorders

== ENCOUNTER → 2021-08-15 | Outpatient (CLI) | payer BC ==
[2021-08-15 17:11] LABS: BASO # 0.1 10^3/uL (0.0-0.2); BASO % 2.1 % (0.0-1.0); EOS # 0.7 10^3/uL (0.0-0.5); EOS % 12.9 % (0.0-3.0); HEMATOCRIT 36.5 % (36.0-47.0); HEMOGLOBIN 11.5 g/dl (12.0-15.5); LYMPH # 1.1 10^3/uL (1.5-5.0); LYMPH % 19.9 % (24.0-44.0); MEAN CORPUSCULAR HEMOGLOBIN 27.3 pg (27.0-33.0); MEAN CORPUSCULAR HGB CONC 31.5 g/dl (32.0-36.5); MEAN CORPUSCULAR VOLUME 86.5 fl (80.0-96.0); MONO # 0.7 10^3/uL (0.0-0.8); MONO % 11.3 % (2.0-8.0); NEUTROPHILS # 3.1 10^3/uL (1.5-8.5); NEUTROPHILS % 53.5 % (36.0-66.0); PLATELET COUNT, AUTOMATED 335 10^3/uL (150-450); RED BLOOD COUNT 4.22 10^6/uL (4.00-5.40); WHITE BLOOD COUNT 5.7 10^3/uL (4.0-10.0)
[2021-08-15 17:45] LABS: ALBUMIN 3.7 GM/DL (3.2-5.2); ALT/SGPT 14 U/L (12-78); BILIRUBIN,DIRECT 0.2 MG/DL (0.0-0.2); BILIRUBIN,TOTAL 0.4 MG/DL (0.2-1.0); BLOOD UREA NITROGEN 14 MG/DL (7-18); CALCIUM LEVEL 9.5 MG/DL (8.5-10.1); CARBON DIOXIDE LEVEL 32 MEQ/L (21-32); CHLORIDE LEVEL 106 MEQ/L (98-107); CREATININE FOR GFR 0.64 MG/DL (0.55-1.30); GLOMERULAR FILTRATION RATE > 60.0 (>51); GLUCOSE, FASTING 96 MG/DL (70-100); POTASSIUM SERUM 3.5 MEQ/L (3.5-5.1); SODIUM LEVEL 140 MEQ/L (136-145)
[2021-08-15 18:15] LABS: ERYTHROCYTE SEDIMENTATION RATE 19 mm/hr (0-30)
== END ==
LOC: M PLALAB 14:54
PROVIDERS: ATTEND Internal Medicine
DX: M06.4 Inflammatory polyarthropathy (principal)

== ENCOUNTER → 2021-08-15 | Outpatient (CLI) | payer BC ==
[2021-08-15 17:11] LABS: BASO # 0.1 10^3/uL (0.0-0.2); BASO % 1.9 % (0.0-1.0); EOS # 0.7 10^3/uL (0.0-0.5); EOS % 13.1 % (0.0-3.0); HEMATOCRIT 36.8 % (36.0-47.0); HEMOGLOBIN 11.5 g/dl (12.0-15.5); LYMPH # 1.1 10^3/uL (1.5-5.0); LYMPH % 20.5 % (24.0-44.0); MEAN CORPUSCULAR HEMOGLOBIN 27.1 pg (27.0-33.0); MEAN CORPUSCULAR HGB CONC 31.3 g/dl (32.0-36.5); MEAN CORPUSCULAR VOLUME 86.6 fl (80.0-96.0); MONO # 0.5 10^3/uL (0.0-0.8); MONO % 10.4 % (2.0-8.0); NEUTROPHILS # 2.8 10^3/uL (1.5-8.5); NEUTROPHILS % 53.9 % (36.0-66.0); PLATELET COUNT, AUTOMATED 333 10^3/uL (150-450); RED BLOOD COUNT 4.25 10^6/uL (4.00-5.40); WHITE BLOOD COUNT 5.2 10^3/uL (4.0-10.0)
[2021-08-15 17:41] LABS: C REACTIVE PROTEIN QUANTITATIV < 0.30 MG/DL (0.00-0.30); CHOLESTEROL LEVEL 224 MG/DL (<200); FERRITIN 10 NG/ML (8-252); FREE T4 0.89 NG/DL (0.76-1.46); HDL CHOLESTEROL 80 MG/DL (>40); LDL CHOLESTEROL 127 MG/DL (<100); MAGNESIUM LEVEL 2.6 MG/DL (1.8-2.4); NON-HDL-C 144 MG/DL; TRIGLYCERIDES LEVEL 83 MG/DL (<150)
[2021-08-15 18:14] LABS: ERYTHROCYTE SEDIMENTATION RATE 19 mm/hr (0-30)
== END ==
LOC: M PLALAB 14:51
PROVIDERS: ATTEND Family Medicine
DX: E78.2 Mixed hyperlipidemia (principal); E03.9 Hypothyroidism, unspecified; M06.00 Rheumatoid arthritis without rheumatoid factor, unspecified site; D50.9 Iron deficiency anemia, unspecified; I10 Essential (primary) hypertension

== ENCOUNTER → 2021-08-15 | Outpatient (CLI) | payer BC | LOC: M WHC 13:52 | PROVIDERS: ATTEND Family Medicine | DX: Z12.31 Encounter for screening mammogram for malignant neoplasm of breast (principal); Z13.820 Encounter for screening for osteoporosis; N63.11 Unspecified lump in the right breast, upper outer quadrant ==

== ENCOUNTER → 2021-08-29 | Outpatient (CLI) | payer BC | LOC: M WHC 14:01 | PROVIDERS: ATTEND Family Medicine | DX: R92.2 Inconclusive mammogram (principal) | CPT/HCPCS: 76642; 77065; G0279 ==

== ENCOUNTER 2021-09-22 14:01 | Outpatient (CLI) | payer BC ==
[~2021-09-22] VITALS: Ht 167.6 cm; Wt 81.8 kg
[~2021-09-22 14:01] MED LIST changes: +ALBUTEROL SULFATE 2.5 MG/0.5 ML INH NEB SOLN INH PRN; +EPINEPHrine INJ 1 MG/ML 1ML AMP IM PRN; +FERRIC CARBOXYMALTOSE INJ 750 MG in NS 250 ML (>50kg) IV ONE; +NS 1,000 ML IV SCH; +diphenhydrAMINE 50MG/ML VIAL (J1200) IV PRN; +methylPREDNISolone 125MG 2ML VIAL IV PRN
[2021-09-22 14:05] VITALS: BP 168/78
[2021-09-22 14:53] VITALS: BP 131/77
[2021-09-22 15:17] VITALS: BP 128/83
== END 2021-09-22 15:30 | disposition home or self-care (01) ==
LOC: M INFU 14:01
PROVIDERS: ATTEND Family Medicine
DX: D50.9 Iron deficiency anemia, unspecified (principal); Z88.6 Allergy status to analgesic agent; Z91.09 Other allergy status, other than to drugs and biological substances
CPT/HCPCS: 96365; J1439

== ENCOUNTER → 2021-11-24 | Outpatient (CLI) | payer BC ==
[~2021-11-24] MED LIST changes: -ALBUTEROL SULFATE 2.5 MG/0.5 ML INH NEB SOLN INH PRN; -EPINEPHrine INJ 1 MG/ML 1ML AMP IM PRN; -FERRIC CARBOXYMALTOSE INJ 750 MG in NS 250 ML (>50kg) IV ONE; -NS 1,000 ML IV SCH; -diphenhydrAMINE 50MG/ML VIAL (J1200) IV PRN; -methylPREDNISolone 125MG 2ML VIAL IV PRN
[2021-11-24 10:34] LABS: BASO # 0.1 10^3/uL (0.0-0.2); BASO % 1.8 % (0.0-1.0); EOS # 0.3 10^3/uL (0.0-0.5); EOS % 5.1 % (0.0-3.0); HEMATOCRIT 38.6 % (36.0-47.0); HEMOGLOBIN 12.8 g/dl (12.0-15.5); LYMPH # 1.2 10^3/uL (1.5-5.0); LYMPH % 21.5 % (24.0-44.0); MEAN CORPUSCULAR HEMOGLOBIN 29.2 pg (27.0-33.0); MEAN CORPUSCULAR HGB CONC 33.2 g/dl (32.0-36.5); MEAN CORPUSCULAR VOLUME 88.1 fl (80.0-96.0); MONO # 0.5 10^3/uL (0.0-0.8); MONO % 8.7 % (2.0-8.0); NEUTROPHILS # 3.5 10^3/uL (1.5-8.5); NEUTROPHILS % 62.7 % (36.0-66.0); PLATELET COUNT, AUTOMATED 307 10^3/uL (150-450); RED BLOOD COUNT 4.38 10^6/uL (4.00-5.40); WHITE BLOOD COUNT 5.5 10^3/uL (4.0-10.0)
[2021-11-24 11:02] LABS: ERYTHROCYTE SEDIMENTATION RATE 17 mm/hr (0-30)
[2021-11-24 13:40] LABS: ALBUMIN 4.1 GM/DL (3.2-5.2); ALT/SGPT 20 U/L (12-78); BILIRUBIN,TOTAL 0.4 MG/DL (0.2-1.0); BLOOD UREA NITROGEN 16 MG/DL (7-18); CALCIUM LEVEL 9.5 MG/DL (8.5-10.1); CARBON DIOXIDE LEVEL 32 MEQ/L (21-32); CHLORIDE LEVEL 99 MEQ/L (98-107); COMPLEMENT C3 119 MG/DL (90-180); COMPLEMENT C4 26 MG/DL (10-40); FERRITIN 74 NG/ML (8-252); GLOMERULAR FILTRATION RATE > 60.0 (>51); GLUCOSE, FASTING 98 MG/DL (70-100); NT-PRO BNP 140 PG/ML (<125); POTASSIUM SERUM 3.1 MEQ/L (3.5-5.1); SODIUM LEVEL 138 MEQ/L (136-145); TOTAL PROTEIN 7.2 GM/DL (6.4-8.2)
[2021-11-24 14:22] LABS: VITAMIN B12 LEVEL 459 PG/ML (247-911)
== END ==
LOC: M PLALAB 08:47
PROVIDERS: ATTEND Family Medicine
DX: D50.9 Iron deficiency anemia, unspecified (principal); M06.00 Rheumatoid arthritis without rheumatoid factor, unspecified site; Z98.84 Bariatric surgery status

== ENCOUNTER → 2022-01-10 | Outpatient (CLI) | payer BC ==
[2022-01-10 14:09] LABS: BASO # 0.1 10^3/uL (0.0-0.2); BASO % 1.4 % (0.0-1.0); EOS # 0.2 10^3/uL (0.0-0.5); EOS % 2.9 % (0.0-3.0); HEMATOCRIT 36.6 % (36.0-47.0); HEMOGLOBIN 11.7 g/dl (12.0-15.5); LYMPH # 1.3 10^3/uL (1.5-5.0); LYMPH % 22.5 % (24.0-44.0); MEAN CORPUSCULAR HEMOGLOBIN 30.2 pg (27.0-33.0); MEAN CORPUSCULAR VOLUME 94.6 fl (80.0-96.0); MONO # 0.4 10^3/uL (0.0-0.8); MONO % 7.3 % (2.0-8.0); NEUTROPHILS # 3.9 10^3/uL (1.5-8.5); NEUTROPHILS % 65.6 % (36.0-66.0); PLATELET COUNT, AUTOMATED 323 10^3/uL (150-450); RED BLOOD COUNT 3.87 10^6/uL (4.00-5.40); WHITE BLOOD COUNT 5.9 10^3/uL (4.0-10.0)
[2022-01-10 15:22] LABS: ERYTHROCYTE SEDIMENTATION RATE 12 mm/hr (0-30)
[2022-01-10 17:06] LABS: ALBUMIN 3.6 GM/DL (3.2-5.2); BLOOD UREA NITROGEN 13 MG/DL (7-18); CARBON DIOXIDE LEVEL 24 MEQ/L (21-32); CHLORIDE LEVEL 110 MEQ/L (98-107); FERRITIN 41 NG/ML (8-252); GLOMERULAR FILTRATION RATE > 60.0 (>51); GLUCOSE, FASTING 93 MG/DL (70-100); MAGNESIUM LEVEL 2.2 MG/DL (1.8-2.4); NT-PRO BNP 434 PG/ML (<125); PHOSPHORUS LEVEL 3.6 MG/DL (2.5-4.9); POTASSIUM SERUM 3.8 MEQ/L (3.5-5.1); SODIUM LEVEL 141 MEQ/L (136-145)
== END ==
LOC: M PLALAB 10:18
PROVIDERS: ATTEND Family Medicine
DX: M06.00 Rheumatoid arthritis without rheumatoid factor, unspecified site (principal); I10 Essential (primary) hypertension; D50.9 Iron deficiency anemia, unspecified

== ENCOUNTER 2022-01-19 13:52 | Outpatient (CLI) | payer BC ==
[~2022-01-19 13:52] MED LIST changes: +ALBUTEROL SULFATE 2.5 MG/0.5 ML INH NEB SOLN INH PRN; +EPINEPHrine INJ 1 MG/ML 1ML AMP IM PRN; +diphenhydrAMINE 50MG/ML VIAL (J1200) IV PRN; +methylPREDNISolone 125MG 2ML VIAL IV PRN
[2022-01-19] MEDS ORDERED: FERRIC CARBOXYMALTOSE INJ 750 MG in NS 250 ML (>50kg) IV ONE ×3 (14:00)
[2022-01-19] MEDS ORDERED: NS 1,000 ML IV SCH (14:00)
[2022-01-19 14:05] VITALS: BP 128/78
[2022-01-19 15:30] VITALS: BP 131/81
== END 2022-01-19 15:30 | disposition home or self-care (01) ==
LOC: M INFU 13:52
PROVIDERS: ATTEND Family Medicine
DX: D50.9 Iron deficiency anemia, unspecified (principal); Z91.048 Other nonmedicinal substance allergy status

== ENCOUNTER → 2022-01-22 | Outpatient (CLI) | payer BC ==
[~2022-01-22] MED LIST changes: -ALBUTEROL SULFATE 2.5 MG/0.5 ML INH NEB SOLN INH PRN; -EPINEPHrine INJ 1 MG/ML 1ML AMP IM PRN; -diphenhydrAMINE 50MG/ML VIAL (J1200) IV PRN; -methylPREDNISolone 125MG 2ML VIAL IV PRN
[2022-01-22 06:17] LABS: BASO # 0.1 10^3/uL (0.0-0.2); EOS # 0.3 10^3/uL (0.0-0.5); EOS % 4.2 % (0.0-3.0); HEMATOCRIT 38.5 % (36.0-47.0); LYMPH # 1.5 10^3/uL (1.5-5.0); LYMPH % 18.3 % (24.0-44.0); MEAN CORPUSCULAR HEMOGLOBIN 31.3 pg (27.0-33.0); MEAN CORPUSCULAR HGB CONC 33.8 g/dl (32.0-36.5); MEAN CORPUSCULAR VOLUME 92.5 fl (80.0-96.0); MONO # 0.7 10^3/uL (0.0-0.8); MONO % 8.3 % (2.0-8.0); NEUTROPHILS # 5.4 10^3/uL (1.5-8.5); NEUTROPHILS % 67.9 % (36.0-66.0); PLATELET COUNT, AUTOMATED 277 10^3/uL (150-450); RED BLOOD COUNT 4.16 10^6/uL (4.00-5.40); WHITE BLOOD COUNT 7.9 10^3/uL (4.0-10.0)
[2022-01-22 07:03] LABS: ALBUMIN 3.8 GM/DL (3.2-5.2); BLOOD UREA NITROGEN 15 MG/DL (7-18); CALCIUM LEVEL 8.9 MG/DL (8.5-10.1); CARBON DIOXIDE LEVEL 28 MEQ/L (21-32); CHLORIDE LEVEL 106 MEQ/L (98-107); CREATININE FOR GFR 0.75 MG/DL (0.55-1.30); FERRITIN 486 NG/ML (8-252); GLOMERULAR FILTRATION RATE > 60.0 (>51); GLUCOSE, FASTING 112 MG/DL (70-100); MAGNESIUM LEVEL 2.2 MG/DL (1.8-2.4); NT-PRO BNP 243 PG/ML (<125); PHOSPHORUS LEVEL 2.1 MG/DL (2.5-4.9); POTASSIUM SERUM 3.6 MEQ/L (3.5-5.1); SODIUM LEVEL 139 MEQ/L (136-145)
[2022-01-22 22:15] LABS: ERYTHROCYTE SEDIMENTATION RATE 12 mm/hr (0-30)
== END ==
LOC: M LAB 05:54
PROVIDERS: ATTEND Family Medicine
DX: M06.00 Rheumatoid arthritis without rheumatoid factor, unspecified site (principal); I10 Essential (primary) hypertension; D50.9 Iron deficiency anemia, unspecified

== ENCOUNTER → 2022-01-30 | Outpatient (CLI) | payer BC | LOC: M CARPUL 13:32 | PROVIDERS: ATTEND Family Medicine | DX: I50.32 Chronic diastolic (congestive) heart failure (principal) ==

== ENCOUNTER → 2022-02-22 | Outpatient (REF) | payer BC ==
[2022-02-22 13:03] LABS: BASO # 0.1 10^3/uL (0.0-0.2); BASO % 1.3 % (0.0-1.0); EOS # 0.2 10^3/uL (0.0-0.5); EOS % 2.8 % (0.0-3.0); HEMATOCRIT 46.3 % (36.0-47.0); HEMOGLOBIN 14.7 g/dl (12.0-15.5); LYMPH # 1.4 10^3/uL (1.5-5.0); LYMPH % 25.5 % (24.0-44.0); MEAN CORPUSCULAR HEMOGLOBIN 29.8 pg (27.0-33.0); MEAN CORPUSCULAR HGB CONC 31.7 g/dl (32.0-36.5); MEAN CORPUSCULAR VOLUME 93.7 fl (80.0-96.0); MONO # 0.6 10^3/uL (0.0-0.8); MONO % 11.3 % (2.0-8.0); NEUTROPHILS # 3.2 10^3/uL (1.5-8.5); NEUTROPHILS % 58.7 % (36.0-66.0); PLATELET COUNT, AUTOMATED 279 10^3/uL (150-450); RED BLOOD COUNT 4.94 10^6/uL (4.00-5.40); WHITE BLOOD COUNT 5.4 10^3/uL (4.0-10.0)
[2022-02-22 13:37] LABS: BILIRUBIN,DIRECT 0.2 MG/DL (<0.4)
[2022-02-22 13:38] LABS: ALBUMIN 4.5 G/DL (3.2-5.2); ALKALINE PHOSPHATASE 83 U/L (46-116); ALT/SGPT 14 U/L (7.0-40); AST/SGOT 24 U/L (<34); BILIRUBIN,TOTAL 0.7 MG/DL (0.3-1.2); BLOOD UREA NITROGEN 15 MG/DL (9-23); CARBON DIOXIDE LEVEL 32 MMOL/L (20-31); CHLORIDE LEVEL 99 MMOL/L (98-107); CREATININE FOR GFR 0.61 MG/DL (0.55-1.30); GLOMERULAR FILTRATION RATE > 60.0 (>51); GLUCOSE, FASTING 109 MG/DL (60-100); POTASSIUM SERUM 4.1 MMOL/L (3.5-5.1); SODIUM LEVEL 139 MMOL/L (136-145); TOTAL PROTEIN 7.7 G/DL (5.7-8.2)
[2022-02-22 14:17] LABS: ERYTHROCYTE SEDIMENTATION RATE 8 mm/hr (0-30)
== END ==
LOC: M SFHCRHEU 11:24
PROVIDERS: ATTEND Internal Medicine
DX: M06.4 Inflammatory polyarthropathy (principal)

== ENCOUNTER → 2022-02-23 | Outpatient (CLI) | payer BC | LOC: M PLAIMG 09:38 | PROVIDERS: ATTEND Internal Medicine | DX: M06.4 Inflammatory polyarthropathy (principal) ==

== ENCOUNTER 2022-03-25 18:45 | Inpatient (IN) | payer BC ==
[~2022-03-25] VITALS: Ht 167.6 cm; Wt 83.4 kg
[~2022-03-25 18:45] MED LIST changes: -LEFL1TAB4; +LEFL1TAB4 PO; -TELM1TAB35; +TELM1TAB35 PO
[2022-03-25] MEDS ORDERED: ETAN50PE INJ (19:03)
[2022-03-25] MEDS ORDERED: TORS20TA2 PO (19:03)
[2022-03-25] MEDS ORDERED: POTA1TAB14 PO (19:03)
[2022-03-25] MEDS ORDERED: NS 1,000 ML IV ONE (20:55)
[2022-03-25 21:24] LABS: BASO # 0.1 10^3/uL (0.0-0.2); BASO % 0.6 % (0.0-1.0); EOS # 0.1 10^3/uL (0.0-0.5); EOS % 0.8 % (0.0-3.0); HEMATOCRIT 42.8 % (36.0-47.0); HEMOGLOBIN 14.5 g/dl (12.0-15.5); LYMPH # 1.3 10^3/uL (1.5-5.0); LYMPH % 9.1 % (24.0-44.0); MEAN CORPUSCULAR HEMOGLOBIN 30.2 pg (27.0-33.0); MEAN CORPUSCULAR HGB CONC 33.9 g/dl (32.0-36.5); MEAN CORPUSCULAR VOLUME 89.2 fl (80.0-96.0); MONO % 7.1 % (2.0-8.0); NEUTROPHILS # 11.9 10^3/uL (1.5-8.5); NEUTROPHILS % 82.1 % (36.0-66.0); PLATELET COUNT, AUTOMATED 246 10^3/uL (150-450); WHITE BLOOD COUNT 14.5 10^3/uL (4.0-10.0)
[2022-03-25] MEDS ORDERED: ISOVUE-370 76% 100ML VIAL As Ordered ONE (21:37)
[2022-03-25 21:45] LABS: ERYTHROCYTE SEDIMENTATION RATE 20 mm/hr (0-30)
[2022-03-25 21:50] LABS: ALBUMIN 4.4 G/DL (3.2-5.2); BILIRUBIN,TOTAL 0.7 MG/DL (0.3-1.2); TOTAL PROTEIN 7.4 G/DL (5.7-8.2)
[2022-03-25 21:51] LABS: BILIRUBIN,DIRECT 0.2 MG/DL (<0.4)
[2022-03-25 22:11] LABS: C REACTIVE PROTEIN QUANTITATIV 2.3 MG/DL (<1.0)
[2022-03-25] MEDS ORDERED: AMPICILLIN SOD/SULBACTAM SOD 3 GM in D5W MINI-BAG PLUS 100 ML IV ONE (22:40)
[2022-03-25 23:18] LABS: RSV AMPLIFICATION NEGATIVE (NEGATIVE)
[2022-03-25] MEDS ORDERED: DULO1CAP6 PO (23:47)
[2022-03-25] MEDS ORDERED: HOME MED LIST COMPLETE! XX SCH (23:50)
[2022-03-26] MEDS ORDERED: ALBUTEROL 90 MCG/ACT 8GM HFA INHALER INH PRN (00:45)
[2022-03-26] MEDS ORDERED: PERCOCET 5MG/325MG TAB PO PRN (00:45)
[2022-03-26] MEDS ORDERED: NS 1,000 ML IV SCH (01:00)
[2022-03-26] MEDS ORDERED: POTASSIUM CHLORIDE 10% LIQ 20MEQ/15ML UDC PO ONE (01:00)
[2022-03-26] MEDS: KETOROLAC 30 MG/ML 1ML VIAL IV PRN ×3 (01:11→21:11)
[2022-03-26] MEDS: CLINDAMYCIN 600 MG in IV 1 EA IV SCH ×4 (02:34→19:56)
[2022-03-26] MEDS: LEVOTHYROXINE 50MCG TABLET (0.05MG) PO SCH (06:12)
[2022-03-26 08:29] LABS: BASO % 0.1 % (0.0-1.0); HEMOGLOBIN 12.9 g/dl (12.0-15.5); LYMPH # 0.9 10^3/uL (1.5-5.0); MEAN CORPUSCULAR HEMOGLOBIN 30.4 pg (27.0-33.0); MEAN CORPUSCULAR HGB CONC 33.9 g/dl (32.0-36.5); MEAN CORPUSCULAR VOLUME 89.6 fl (80.0-96.0); MONO # 0.6 10^3/uL (0.0-0.8); MONO % 3.9 % (2.0-8.0); NEUTROPHILS % 89.7 % (36.0-66.0); PLATELET COUNT, AUTOMATED 235 10^3/uL (150-450); RED BLOOD COUNT 4.24 10^6/uL (4.00-5.40); WHITE BLOOD COUNT 14.5 10^3/uL (4.0-10.0)
[2022-03-26] MEDS: TELMISARTAN 20 MG TAB PO SCH ×2 (08:56→12:52)
[2022-03-26] MEDS: TOPIRAMATE (TopAMAX) 25 MG TAB PO SCH (08:56)
[2022-03-26] MEDS: DULoxetine 30MG CAPSULE (CYMBALTA) PO SCH ×2 (08:56→21:11)
[2022-03-26] MEDS: ESCITALOPRAM OXALATE 10 MG TAB (LEXAPRO) PO SCH (08:57)
[2022-03-26 08:59] LABS: BLOOD UREA NITROGEN 15 MG/DL (9-23); CALCIUM LEVEL 9.4 MG/DL (8.5-10.1); CARBON DIOXIDE LEVEL 26 MMOL/L (20-31); CHLORIDE LEVEL 103 MMOL/L (98-107); CREATININE FOR GFR 0.44 MG/DL (0.55-1.30); GLOMERULAR FILTRATION RATE > 60.0 (>51); GLUCOSE, FASTING 150 MG/DL (60-100); POTASSIUM SERUM 4.2 MMOL/L (3.5-5.1); SODIUM LEVEL 138 MMOL/L (136-145)
[2022-03-26 14:45] VITALS: BP 142/92
[2022-03-26] MEDS: ACETAMINOPHEN TAB 650MG DOSE (2X325MG) PO PRN (16:15)
[2022-03-26 20:04] VITALS: BP 126/79
[2022-03-26] MEDS ORDERED: TOPIRAMATE (TopAMAX) 25 MG TAB PO SCH (21:00)
[2022-03-26] MEDS: ENOXAPARIN 40MG/0.4ML SYRINGE (J1650 PER 10MG) SC SCH ×2 (21:00→21:12)
[2022-03-27] MEDS: CLINDAMYCIN 600 MG in IV 1 EA IV SCH ×2 (01:55→08:23)
[2022-03-27] MEDS: ACETAMINOPHEN TAB 650MG DOSE (2X325MG) PO PRN (02:44)
[2022-03-27] MEDS: LEVOTHYROXINE 50MCG TABLET (0.05MG) PO SCH (05:57)
[2022-03-27] MEDS: KETOROLAC 30 MG/ML 1ML VIAL IV PRN (05:57)
[2022-03-27 06:07] VITALS: BP 126/79
[2022-03-27 06:15] LABS: BASO % 0.4 % (0.0-1.0); EOS # 0.1 10^3/uL (0.0-0.5); EOS % 0.7 % (0.0-3.0); HEMATOCRIT 36.3 % (36.0-47.0); LYMPH # 1.4 10^3/uL (1.5-5.0); LYMPH % 14.1 % (24.0-44.0); MEAN CORPUSCULAR HEMOGLOBIN 30.3 pg (27.0-33.0); MEAN CORPUSCULAR HGB CONC 33.1 g/dl (32.0-36.5); MEAN CORPUSCULAR VOLUME 91.7 fl (80.0-96.0); MONO # 0.7 10^3/uL (0.0-0.8); MONO % 7.2 % (2.0-8.0); NEUTROPHILS # 7.7 10^3/uL (1.5-8.5); NEUTROPHILS % 77.3 % (36.0-66.0); PLATELET COUNT, AUTOMATED 196 10^3/uL (150-450); RED BLOOD COUNT 3.96 10^6/uL (4.00-5.40)
[2022-03-27 06:34] LABS: ERYTHROCYTE SEDIMENTATION RATE 24 mm/hr (0-30)
[2022-03-27 06:41] LABS: BLOOD UREA NITROGEN 17 MG/DL (9-23); CALCIUM LEVEL 9.1 MG/DL (8.5-10.1); CARBON DIOXIDE LEVEL 29 MMOL/L (20-31); CHLORIDE LEVEL 107 MMOL/L (98-107); CREATININE FOR GFR 0.53 MG/DL (0.55-1.30); GLOMERULAR FILTRATION RATE > 60.0 (>51); GLUCOSE, FASTING 107 MG/DL (60-100); POTASSIUM SERUM 3.6 MMOL/L (3.5-5.1); SODIUM LEVEL 142 MMOL/L (136-145)
[2022-03-27] MEDS: ESCITALOPRAM OXALATE 10 MG TAB (LEXAPRO) PO SCH (08:23)
[2022-03-27] MEDS: DULoxetine 30MG CAPSULE (CYMBALTA) PO SCH (08:23)
[2022-03-27] MEDS: TOPIRAMATE (TopAMAX) 25 MG TAB PO SCH (08:23)
[2022-03-27] MEDS ORDERED: CLIN150C17 PO (08:27)
[2022-03-27] MEDS ORDERED: TELMISARTAN 20 MG TAB PO SCH (09:00)
[2022-03-27] MEDS ORDERED: TORSEMIDE 20 MG TAB PO SCH (09:00)
[2022-03-27] MEDS ORDERED: BACT800T5 PO (10:29)
[2022-03-27] MEDS ORDERED: AMOX875T2 PO (10:29)
== END 2022-03-27 14:55 | disposition home or self-care (01) | DRG 720 ==
LOC: M ED 18:45 → M ED INP 23:00 → ENRESERV 03-26 14:19 → M MS5PR 03-26 14:45
PROVIDERS: ADMIT Internal Medicine; ATTEND Internal Medicine
DX: A41.9 Sepsis, unspecified organism (principal); I10 Essential (primary) hypertension; E03.9 Hypothyroidism, unspecified; E87.6 Hypokalemia; F32.A Depression, unspecified; J45.909 Unspecified asthma, uncomplicated; L03.211 Cellulitis of face; M06.9 Rheumatoid arthritis, unspecified; E04.1 Nontoxic single thyroid nodule; K11.20 Sialoadenitis, unspecified; Z79.899 Other long term (current) drug therapy; Z88.8 Allergy status to other drugs, medicaments and biological substances

== ENCOUNTER → 2022-04-06 | Outpatient (CLI) | payer BC ==
[~2022-04-06] MED LIST changes: +AMOX875T2 PO; +BACT800T5 PO; +CLIN150C17 PO; +DULO1CAP6 PO; +ETAN50PE INJ; +POTA1TAB14 PO; +TORS20TA2 PO
[2022-04-06 15:03] LABS: MAGNESIUM LEVEL 2.2 MG/DL (1.8-2.4)
[2022-04-06 15:04] LABS: C REACTIVE PROTEIN QUANTITATIV < 0.40 MG/DL (<1.0)
[2022-04-06 15:05] LABS: ALKALINE PHOSPHATASE 75 U/L (46-116); ALT/SGPT 13 U/L (7.0-40); AST/SGOT 30 U/L (<34); BILIRUBIN,TOTAL 0.4 MG/DL (0.3-1.2); BLOOD UREA NITROGEN 22 MG/DL (9-23); CALCIUM LEVEL 9.6 MG/DL (8.5-10.1); CARBON DIOXIDE LEVEL 28 MMOL/L (20-31); CHLORIDE LEVEL 109 MMOL/L (98-107); CREATININE FOR GFR 0.72 MG/DL (0.55-1.30); GLOMERULAR FILTRATION RATE > 60.0 (>51); GLUCOSE, FASTING 87 MG/DL (60-100); POTASSIUM SERUM 4.7 MMOL/L (3.5-5.1); SODIUM LEVEL 144 MMOL/L (136-145); TOTAL PROTEIN 6.5 G/DL (5.7-8.2)
[2022-04-06 15:08] LABS: BASO # 0.1 10^3/uL (0.0-0.2); EOS # 0.2 10^3/uL (0.0-0.5); EOS % 3.4 % (0.0-3.0); HEMATOCRIT 41.4 % (36.0-47.0); LYMPH # 1.6 10^3/uL (1.5-5.0); LYMPH % 22.7 % (24.0-44.0); MEAN CORPUSCULAR HEMOGLOBIN 29.8 pg (27.0-33.0); MEAN CORPUSCULAR HGB CONC 31.4 g/dl (32.0-36.5); MONO # 0.6 10^3/uL (0.0-0.8); MONO % 8.3 % (2.0-8.0); NEUTROPHILS # 4.3 10^3/uL (1.5-8.5); PLATELET COUNT, AUTOMATED 379 10^3/uL (150-450); RED BLOOD COUNT 4.36 10^6/uL (4.00-5.40); WHITE BLOOD COUNT 6.8 10^3/uL (4.0-10.0)
[2022-04-06 15:10] LABS: THYROGLOBULIN ANTIBODY < 15.0 U/ML (<60.0); THYROID PEROXIDASE ANTIBODY 31 U/ML (<60.0)
== END ==
LOC: M PLALAB 09:57
PROVIDERS: ATTEND Family Medicine
DX: E04.1 Nontoxic single thyroid nodule (principal); I50.32 Chronic diastolic (congestive) heart failure; L03.211 Cellulitis of face

== ENCOUNTER → 2022-04-19 | Outpatient (CLI) | payer BC | LOC: M PLAIMG 10:43 | PROVIDERS: ATTEND Internal Medicine | DX: M25.052 Hemarthrosis, left hip (principal); M25.072 Hemarthrosis, left ankle ==

== ENCOUNTER → 2022-04-30 | Outpatient (CLI) | payer BC | LOC: M RAD 13:44 | PROVIDERS: ATTEND Family Medicine | DX: E04.1 Nontoxic single thyroid nodule (principal) ==

== ENCOUNTER → 2022-05-01 | Outpatient (REF) | LOC: M LABSMTC 09:25 | PROVIDERS: ATTEND Family Medicine | DX: Z11.52 Encounter for screening for COVID-19 (principal) ==

== ENCOUNTER → 2022-05-16 | Outpatient (CLI) | payer BC ==
[~2022-05-16] MED LIST changes: +ALLE1TAB23 PO; +B-12100021 PO; +ESOM1CAP5 PO; +LIDOCAINE 1% MDV 20ML VIAL As Ordered ONE; +RELP40TA PO
[2022-05-16 13:30] VITALS: BP 166/112
== END ==
LOC: M IRPRO 12:49
PROVIDERS: ATTEND Family Medicine
DX: E04.1 Nontoxic single thyroid nodule (principal)

== ENCOUNTER → 2022-07-26 | Outpatient (CLI) | payer BC ==
[~2022-07-26] MED LIST changes: -LIDOCAINE 1% MDV 20ML VIAL As Ordered ONE; +POTA-298 PO; -POTA1TAB14 PO
== END ==
LOC: M PLAIMG 08:40
PROVIDERS: ATTEND Physician Assistant
DX: M25.562 Pain in left knee (principal); W19.XXXA Unspecified fall, initial encounter; M25.362 Other instability, left knee

== ENCOUNTER → 2022-07-26 | Outpatient (CLI) | payer BC ==
[2022-07-26 10:31] LABS: BASO # 0.1 10^3/uL (0.0-0.2); BASO % 1.8 % (0.0-1.0); EOS # 0.4 10^3/uL (0.0-0.5); EOS % 6.6 % (0.0-3.0); HEMATOCRIT 40.1 % (36.0-47.0); LYMPH # 1.6 10^3/uL (1.5-5.0); LYMPH % 28.5 % (24.0-44.0); MEAN CORPUSCULAR HEMOGLOBIN 29.9 pg (27.0-33.0); MEAN CORPUSCULAR HGB CONC 32.4 g/dl (32.0-36.5); MEAN CORPUSCULAR VOLUME 92.2 fl (80.0-96.0); MONO # 0.5 10^3/uL (0.0-0.8); MONO % 9.7 % (2.0-8.0); NEUTROPHILS # 2.9 10^3/uL (1.5-8.5); NEUTROPHILS % 53.2 % (36.0-66.0); PLATELET COUNT, AUTOMATED 273 10^3/uL (150-450); RED BLOOD COUNT 4.35 10^6/uL (4.00-5.40); WHITE BLOOD COUNT 5.4 10^3/uL (4.0-10.0)
[2022-07-26 11:02] LABS: ALBUMIN 4.1 G/DL (3.2-5.2); ALKALINE PHOSPHATASE 81 U/L (46-116); ALT/SGPT 16 U/L (7.0-40); AST/SGOT 19 U/L (<34); BILIRUBIN,TOTAL 0.5 MG/DL (0.3-1.2); BLOOD UREA NITROGEN 14 MG/DL (9-23); C REACTIVE PROTEIN QUANTITATIV < 0.40 MG/DL (<1.0); CALCIUM LEVEL 8.9 MG/DL (8.5-10.1); CARBON DIOXIDE LEVEL 31 MMOL/L (20-31); CHLORIDE LEVEL 106 MMOL/L (98-107); CHOLESTEROL LEVEL 209 MG/DL (<200); CHOLESTEROL RISK RATIO 3.25 (<5); CREATININE FOR GFR 0.65 MG/DL (0.55-1.30); GLOMERULAR FILTRATION RATE > 60.0 (>51); GLUCOSE, FASTING 88 MG/DL (60-100); HDL CHOLESTEROL 64.3 MG/DL (>40); LDL CHOLESTEROL 126.1 MG/DL (<100); NON-HDL-C 144.7 MG/DL; POTASSIUM SERUM 3.8 MMOL/L (3.5-5.1); SODIUM LEVEL 140 MMOL/L (136-145); TOTAL PROTEIN 6.6 G/DL (5.7-8.2); TRIGLYCERIDES LEVEL 93 MG/DL (<150)
[2022-07-26 11:03] LABS: COMPLEMENT C3 110.8 MG/DL (90.0-170.0); COMPLEMENT C4 25.6 MG/DL (12-36); THYROID STIMULATING HORMONE 1.535 uIU/ML (0.55-4.78)
[2022-07-26 11:04] LABS: FREE T4 0.91 NG/DL (0.89-1.76)
[2022-07-26 11:56] LABS: ERYTHROCYTE SEDIMENTATION RATE 14 mm/hr (0-30)
== END ==
LOC: M PLALAB 08:44
PROVIDERS: ATTEND Family Medicine
DX: M06.00 Rheumatoid arthritis without rheumatoid factor, unspecified site (principal); E03.9 Hypothyroidism, unspecified; Z98.84 Bariatric surgery status; E78.2 Mixed hyperlipidemia

== ENCOUNTER → 2022-08-16 | Outpatient (CLI) | payer BC ==
[2022-08-16 11:38] LABS: BASO # 0.1 10^3/uL (0.0-0.2); BASO % 1.3 % (0.0-1.0); EOS # 0.4 10^3/uL (0.0-0.5); EOS % 5.2 % (0.0-3.0); HEMATOCRIT 41.8 % (36.0-47.0); HEMOGLOBIN 14.3 g/dl (12.0-15.5); LYMPH # 1.6 10^3/uL (1.5-5.0); LYMPH % 21.9 % (24.0-44.0); MEAN CORPUSCULAR HEMOGLOBIN 30.4 pg (27.0-33.0); MEAN CORPUSCULAR HGB CONC 34.2 g/dl (32.0-36.5); MEAN CORPUSCULAR VOLUME 88.7 fl (80.0-96.0); MONO # 0.9 10^3/uL (0.0-0.8); MONO % 12.3 % (2.0-8.0); NEUTROPHILS # 4.4 10^3/uL (1.5-8.5); NEUTROPHILS % 58.9 % (36.0-66.0); PLATELET COUNT, AUTOMATED 323 10^3/uL (150-450); RED BLOOD COUNT 4.71 10^6/uL (4.00-5.40); WHITE BLOOD COUNT 7.5 10^3/uL (4.0-10.0)
[2022-08-16 11:40] LABS: HEMATOCRIT 42.2 % (36.0-47.0)
[2022-08-16 11:59] LABS: FERRITIN 142.6 NG/ML (7.3-270.7)
== END ==
LOC: M PLALAB 08:22
PROVIDERS: ATTEND Family Medicine
DX: E03.9 Hypothyroidism, unspecified (principal); D50.9 Iron deficiency anemia, unspecified

== ENCOUNTER → 2022-10-11 | Outpatient (CLI) | payer BC | LOC: M PLARAD 07:37 | PROVIDERS: ATTEND Family Medicine | DX: G31.84 Mild cognitive impairment of uncertain or unknown etiology (principal) ==

== ENCOUNTER → 2022-12-28 | Outpatient (CLI) | payer BC ==
[2022-12-28 12:47] LABS: BASO # 0.1 10^3/uL (0.0-0.2); BASO % 1.8 % (0.0-1.0); EOS # 0.3 10^3/uL (0.0-0.5); HEMATOCRIT 40.3 % (36.0-47.0); HEMOGLOBIN 13.1 g/dl (12.0-15.5); LYMPH % 35.9 % (24.0-44.0); MEAN CORPUSCULAR HEMOGLOBIN 29.8 pg (27.0-33.0); MEAN CORPUSCULAR HGB CONC 32.5 g/dl (32.0-36.5); MEAN CORPUSCULAR VOLUME 91.6 fl (80.0-96.0); MONO # 0.5 10^3/uL (0.0-0.8); MONO % 8.9 % (2.0-8.0); NEUTROPHILS # 2.6 10^3/uL (1.5-8.5); NEUTROPHILS % 47.2 % (36.0-66.0); PLATELET COUNT, AUTOMATED 292 10^3/uL (150-450); WHITE BLOOD COUNT 5.5 10^3/uL (4.0-10.0)
[2022-12-28 12:55] LABS: ERYTHROCYTE SEDIMENTATION RATE 8 mm/hr (0-30)
[2022-12-28 13:12] LABS: C REACTIVE PROTEIN QUANTITATIV < 0.40 MG/DL (<1.0)
[2022-12-28 13:13] LABS: ALBUMIN 4.2 G/DL (3.2-5.2); ALKALINE PHOSPHATASE 82 U/L (46-116); ALT/SGPT 14 U/L (7.0-40); AST/SGOT 28 U/L (<34); BILIRUBIN,TOTAL 0.5 MG/DL (0.3-1.2); BLOOD UREA NITROGEN 10 MG/DL (9-23); CALCIUM LEVEL 9.5 MG/DL (8.5-10.1); CARBON DIOXIDE LEVEL 29 MMOL/L (20-31); CHLORIDE LEVEL 105 MMOL/L (98-107); CREATININE FOR GFR 0.66 MG/DL (0.55-1.30); GLOMERULAR FILTRATION RATE > 60.0 (>51); GLUCOSE, FASTING 89 MG/DL (60-100); SODIUM LEVEL 141 MMOL/L (136-145); TOTAL PROTEIN 6.8 G/DL (5.7-8.2)
[2022-12-28 13:16] LABS: FERRITIN 61.1 NG/ML (7.3-270.7); THYROID STIMULATING HORMONE 2.285 uIU/ML (0.55-4.78)
[2022-12-28 13:17] LABS: FREE T4 0.87 NG/DL (0.89-1.76)
== END ==
LOC: M PLALAB 08:25
PROVIDERS: ATTEND Family Medicine
DX: M06.00 Rheumatoid arthritis without rheumatoid factor, unspecified site (principal); I10 Essential (primary) hypertension; E03.9 Hypothyroidism, unspecified; D50.9 Iron deficiency anemia, unspecified

== ENCOUNTER 2023-01-11 11:21 | Outpatient (CLI) | payer BC ==
[~2023-01-11] VITALS: Ht 170.2 cm; Wt 82.0 kg
[~2023-01-11 11:21] MED LIST changes: +ALBUTEROL SULFATE 2.5MG/0.5ML INH NEB SOLN INH PRN; +EPINEPHrine INJ 1 MG/ML 1ML AMP IM PRN; +diphenhydrAMINE 50MG/ML VIAL IV PRN; +methylPREDNISolone 125MG 2ML VIAL IV PRN
[2023-01-11 11:25] VITALS: BP 141/94; O2SAT 97
[2023-01-11] MEDS ORDERED: NS 1,000 ML IV SCH (11:35)
[2023-01-11] MEDS ORDERED: FERRIC CARBOXYMALTOSE INJ 750 MG in NS 250 ML (>50kg) IV ONE ×3 (11:35)
[2023-01-11 13:00] VITALS: BP 143/82; O2SAT 98
== END 2023-01-11 13:00 ==
LOC: M INFU 11:21
PROVIDERS: ATTEND Family Medicine
DX: D50.9 Iron deficiency anemia, unspecified (principal); Z88.8 Allergy status to other drugs, medicaments and biological substances; Z91.048 Other nonmedicinal substance allergy status; Z91.09 Other allergy status, other than to drugs and biological substances
CPT/HCPCS: 96365; J1439

== ENCOUNTER → 2023-02-26 | Outpatient (CLI) | payer BC ==
[~2023-02-26] MED LIST changes: -ALBUTEROL SULFATE 2.5MG/0.5ML INH NEB SOLN INH PRN; -ALLE1TAB23 PO; -EPINEPHrine INJ 1 MG/ML 1ML AMP IM PRN; +FEXO-157 PO; -diphenhydrAMINE 50MG/ML VIAL IV PRN; -methylPREDNISolone 125MG 2ML VIAL IV PRN
[2023-02-26 10:52] LABS: BASO # 0.1 10^3/uL (0.0-0.2); EOS # 0.4 10^3/uL (0.0-0.5); EOS % 6.6 % (0.0-3.0); HEMATOCRIT 38.5 % (36.0-47.0); HEMOGLOBIN 12.6 g/dl (12.0-15.5); LYMPH % 35.6 % (24.0-44.0); MEAN CORPUSCULAR HEMOGLOBIN 29.8 pg (27.0-33.0); MEAN CORPUSCULAR HGB CONC 32.7 g/dl (32.0-36.5); MONO # 0.5 10^3/uL (0.0-0.8); MONO % 9.5 % (2.0-8.0); NEUTROPHILS # 2.5 10^3/uL (1.5-8.5); NEUTROPHILS % 46.1 % (36.0-66.0); PLATELET COUNT, AUTOMATED 261 10^3/uL (150-450); RED BLOOD COUNT 4.23 10^6/uL (4.00-5.40); WHITE BLOOD COUNT 5.5 10^3/uL (4.0-10.0)
[2023-02-26 11:20] LABS: BLOOD UREA NITROGEN 14 MG/DL (9-23); CALCIUM LEVEL 9.9 MG/DL (8.5-10.1); CARBON DIOXIDE LEVEL 30 MMOL/L (20-31); CHLORIDE LEVEL 104 MMOL/L (98-107); CREATININE FOR GFR 0.63 MG/DL (0.55-1.30); GLOMERULAR FILTRATION RATE > 60.0 (>51); GLUCOSE, FASTING 89 MG/DL (60-100); POTASSIUM SERUM 4.1 MMOL/L (3.5-5.1); SODIUM LEVEL 139 MMOL/L (136-145)
== END ==
LOC: M EKG 09:48
PROVIDERS: ATTEND Podiatrist
DX: M20.12 Hallux valgus (acquired), left foot (principal); M20.42 Other hammer toe(s) (acquired), left foot; M21.6X2 Other acquired deformities of left foot; M79.672 Pain in left foot

== ENCOUNTER 2023-03-08 10:43 | Day surgery (SDC) | payer BC ==
[~2023-03-08] VITALS: Ht 170.2 cm; Wt 83.6 kg
[~2023-03-08 10:43] MED LIST changes: +GENTAMICIN SULF 80MG/2ML VIAL As Ordered ONE; +LIDOCAINE 2% MDV 20ML VIAL As Ordered ONE; +PROBCAP14 PO; +TRAM50TA2 PO; +ceFAZolin SOD 2 GM in IV 1 EA IV ONE
[2023-03-08] MEDS ORDERED: SCOPOLAMINE 1MG TRANSDERMAL PATCH TOP ONE (14:45)
[2023-03-08] MEDS ORDERED: SCOPOLAMINE 1MG TRANSDERMAL PATCH As Ordered ONE (15:03)
[2023-03-08] MEDS ORDERED: dexmedeTOMIDine (4MCG/ML)200MCG/50ML BTL (PRECEDEX) As Ordered ONE (15:13)
[2023-03-08] MEDS ORDERED: ACETAMINOPHEN 1000MG 100ML IV BAG As Ordered ONE (15:13)
[2023-03-08] MEDS ORDERED: LIDOCAINE 2% 100MG/5ML SDV (FOR ANES.) As Ordered ONE (15:13)
[2023-03-08] MEDS ORDERED: propofoL 200 MG/20 ML VIAL As Ordered ONE ×2 (15:13→15:16)
[2023-03-08] MEDS ORDERED: MIDAZOLAM INJ 2MG/2ML VIAL As Ordered ONE (15:13)
[2023-03-08] MEDS ORDERED: fentaNYL 100 MCG/2 ML INJECTION As Ordered ONE ×2 (15:13→15:24)
[2023-03-08] MEDS ORDERED: ONDANSETRON 4MG 2ML VIAL As Ordered ONE (15:15)
[2023-03-08] MEDS ORDERED: ROCURONIUM BROMIDE 50MG/5ML VIAL As Ordered ONE (15:24)
[2023-03-08] MEDS ORDERED: ePHEDrine SULFATE 25 MG/5 ML(5MG/ML) SYRINGE As Ordered ONE (15:34)
[2023-03-08] MEDS ORDERED: SUGAMMADEX SODIUM 500 MG/5 ML VIAL (BRIDION) As Ordered ONE (15:36)
[2023-03-08] MEDS ORDERED: ONDANSETRON 4MG 2ML VIAL IV PRN (17:15)
[2023-03-08] MEDS ORDERED: MORPHINE 2 MG/ML 1ML VIAL IV PRN (17:15)
[2023-03-08] MEDS ORDERED: oxyCODONE 5MG TAB PO PRN (17:15)
[2023-03-08] MEDS ORDERED: fentaNYL 100 MCG/2 ML INJECTION IV PRN (17:15)
[2023-03-08 18:45] VITALS: BP 146/84; TEMP 98; O2SAT 97
== END 2023-03-08 19:00 | disposition home or self-care (01) ==
LOC: M SDC 10:43
PROVIDERS: ATTEND Podiatrist
DX: M20.12 Hallux valgus (acquired), left foot (principal); M20.42 Other hammer toe(s) (acquired), left foot; I10 Essential (primary) hypertension; E03.9 Hypothyroidism, unspecified; K21.9 Gastro-esophageal reflux disease without esophagitis; G43.909 Migraine, unspecified, not intractable, without status migrainosus; F32.A Depression, unspecified; D64.9 Anemia, unspecified; Z79.51 Long term (current) use of inhaled steroids; Z79.899 Other long term (current) drug therapy; Z88.8 Allergy status to other drugs, medicaments and biological substances; Z91.018 Allergy to other foods
CPT/HCPCS: 28285; 28296; 28308; 73630; 76000; 88300; C1713; J0131; J0665; J0690; J1100; J1580; J2250; J2405; J3010

== ENCOUNTER → 2023-04-26 | Outpatient (CLI) | payer BC ==
[~2023-04-26] MED LIST changes: -GENTAMICIN SULF 80MG/2ML VIAL As Ordered ONE; -LEFL1TAB4 PO; +LEFL20TA15 PO; -LIDOCAINE 2% MDV 20ML VIAL As Ordered ONE; -ceFAZolin SOD 2 GM in IV 1 EA IV ONE
== END ==
LOC: M WHC 09:38
PROVIDERS: ATTEND Family Medicine
DX: Z12.39 Encounter for other screening for malignant neoplasm of breast (principal)

== ENCOUNTER → 2023-04-26 | Outpatient (CLI) | payer BC ==
[2023-04-26 14:17] LABS: BASO # 0.1 10^3/uL (0.0-0.2); BASO % 1.2 % (0.0-1.0); EOS # 0.2 10^3/uL (0.0-0.5); EOS % 3.2 % (0.0-3.0); HEMATOCRIT 39.2 % (36.0-47.0); HEMOGLOBIN 13.1 g/dl (12.0-15.5); LYMPH # 1.1 10^3/uL (1.5-5.0); MEAN CORPUSCULAR HEMOGLOBIN 30.8 pg (27.0-33.0); MEAN CORPUSCULAR HGB CONC 33.4 g/dl (32.0-36.5); MEAN CORPUSCULAR VOLUME 92.2 fl (80.0-96.0); MONO # 0.6 10^3/uL (0.0-0.8); MONO % 9.8 % (2.0-8.0); NEUTROPHILS # 3.7 10^3/uL (1.5-8.5); NEUTROPHILS % 65.6 % (36.0-66.0); PLATELET COUNT, AUTOMATED 259 10^3/uL (150-450); RED BLOOD COUNT 4.25 10^6/uL (4.00-5.40); WHITE BLOOD COUNT 5.7 10^3/uL (4.0-10.0)
[2023-04-26 14:22] LABS: C REACTIVE PROTEIN QUANTITATIV < 0.40 MG/DL (<1.0)
[2023-04-26 14:23] LABS: ALKALINE PHOSPHATASE 94 U/L (46-116); ALT/SGPT 15 U/L (7.0-40); AST/SGOT 22 U/L (<34); BILIRUBIN,TOTAL 0.6 MG/DL (0.3-1.2); BLOOD UREA NITROGEN 11 MG/DL (9-23); CALCIUM LEVEL 9.2 MG/DL (8.5-10.1); CARBON DIOXIDE LEVEL 32 MMOL/L (20-31); CHLORIDE LEVEL 102 MMOL/L (98-107); CHOLESTEROL LEVEL 213 MG/DL (<200); CHOLESTEROL RISK RATIO 2.55 (<5); CREATININE FOR GFR 0.57 MG/DL (0.55-1.30); GLOMERULAR FILTRATION RATE > 60.0 (>51); GLUCOSE, FASTING 87 MG/DL (60-100); HDL CHOLESTEROL 83.4 MG/DL (>40); MAGNESIUM LEVEL 2.1 MG/DL (1.8-2.4); NON-HDL-C 129.6 MG/DL; PTH INTACT 102.3 PG/ML (18.5-88.0); SODIUM LEVEL 138 MMOL/L (136-145); TOTAL PROTEIN 6.7 G/DL (5.7-8.2); TRIGLYCERIDES LEVEL 108 MG/DL (<150)
[2023-04-26 14:24] LABS: THYROID STIMULATING HORMONE 2.006 uIU/ML (0.55-4.78)
[2023-04-26 14:25] LABS: FERRITIN 184.1 NG/ML (7.3-270.7); FREE T4 0.87 NG/DL (0.89-1.76); TOTAL 25(OH) VITAMIN D 34.5 NG/ML (20.0-100.0)
[2023-04-26 14:26] LABS: ERYTHROCYTE SEDIMENTATION RATE 8 mm/hr (0-30)
== END ==
LOC: M PLALAB 10:44
PROVIDERS: ATTEND Family Medicine
DX: D50.9 Iron deficiency anemia, unspecified (principal); I50.32 Chronic diastolic (congestive) heart failure; M06.00 Rheumatoid arthritis without rheumatoid factor, unspecified site; E03.9 Hypothyroidism, unspecified; E55.9 Vitamin D deficiency, unspecified

== ENCOUNTER → 2023-05-07 | Outpatient (CLI) | payer BC | LOC: M RAD 10:33 | PROVIDERS: ATTEND Family Medicine | DX: E04.1 Nontoxic single thyroid nodule (principal) ==

== ENCOUNTER 2023-08-02 20:03 | Emergency (ER) | payer BC ==
[~2023-08-02] VITALS: Ht 170.2 cm; Wt 87.4 kg
[2023-08-02 20:04] VITALS: TEMP 97.7
[2023-08-02 20:30] LABS: VENOUS BASE EXCESS -1.5 (-2.0-2.0); VENOUS HCO3 24.1 MMOL/L (23.0-27.0); VENOUS O2 SATURATION 66.3 % (60.0-80.0); VENOUS PH 7.357 UNITS (7.330-7.430); VENOUS STANDARD HCO3 22.6 MMOL/L; VENOUS TOTAL CO2 25.5 MMOL/L (24.0-28.0)
[2023-08-02] MEDS: methylPREDNISolone 125MG 2ML VIAL IV ONE (20:33)
[2023-08-02 20:34] LABS: BASO # 0.1 10^3/uL (0.0-0.2); BASO % 0.9 % (0.0-1.0); EOS # 0.7 10^3/uL (0.0-0.5); HEMATOCRIT 38.1 % (36.0-47.0); HEMOGLOBIN 13.1 g/dl (12.0-15.5); LYMPH # 1.9 10^3/uL (1.5-5.0); LYMPH % 20.1 % (24.0-44.0); MEAN CORPUSCULAR HEMOGLOBIN 30.4 pg (27.0-33.0); MEAN CORPUSCULAR HGB CONC 34.4 g/dl (32.0-36.5); MEAN CORPUSCULAR VOLUME 88.4 fl (80.0-96.0); MONO # 0.7 10^3/uL (0.0-0.8); MONO % 7.4 % (2.0-8.0); NEUTROPHILS # 6.1 10^3/uL (1.5-8.5); NEUTROPHILS % 64.3 % (36.0-66.0); PLATELET COUNT, AUTOMATED 279 10^3/uL (150-450); RED BLOOD COUNT 4.31 10^6/uL (4.00-5.40); WHITE BLOOD COUNT 9.6 10^3/uL (4.0-10.0)
[2023-08-02] MEDS: IPRATROPIUM 0.5MG/ALBUTEROL 2.5MG INH SOL UD 3ML (DUONEB) NEB ONE ×2 (20:37→20:38)
[2023-08-02 21:01] LABS: C REACTIVE PROTEIN QUANTITATIV < 0.40 MG/DL (<1.0); CK-MB VALUE MASS 6.5 NG/ML (<3.6)
[2023-08-02 21:02] LABS: ALBUMIN 4.3 G/DL (3.2-5.2); ALKALINE PHOSPHATASE 108 U/L (46-116); ALT/SGPT 13 U/L (7.0-40); AST/SGOT 18 U/L (<34); BILIRUBIN,DIRECT 0.2 MG/DL (<0.4); BILIRUBIN,TOTAL 0.5 MG/DL (0.3-1.2); BLOOD UREA NITROGEN 19 MG/DL (9-23); CALCIUM LEVEL 10.2 MG/DL (8.5-10.1); CARBON DIOXIDE LEVEL 27 MMOL/L (20-31); CHLORIDE LEVEL 107 MMOL/L (98-107); CPK CREATINE PHOSPHOKINASE 280 U/L (34-145); CREATININE FOR GFR 0.57 MG/DL (0.55-1.30); GLOMERULAR FILTRATION RATE > 60.0 (>51); GLUCOSE, FASTING 103 MG/DL (60-100); MB/CK RELATIVE INDEX 2.32 (< OR =4); POTASSIUM SERUM 3.3 MMOL/L (3.5-5.1); SODIUM LEVEL 143 MMOL/L (136-145); TOTAL PROTEIN 7.2 G/DL (5.7-8.2)
[2023-08-02 21:04] LABS: FREE T4 0.97 NG/DL (0.89-1.76)
[2023-08-02 21:07] LABS: INR 0.97; PROTHROMBIN TIME 12.6 SECONDS (12.5-14.5)
[2023-08-02 21:09] LABS: PROCALCITONIN <0.04 ng/ml
[2023-08-02 22:19] LABS: CK-MB VALUE MASS 6.6 NG/ML (<3.6)
[2023-08-02 22:20] LABS: MB/CK RELATIVE INDEX 2.5 (< OR =4)
[2023-08-02] MEDS: POTASSIUM CHLORIDE 10MEQ SR TABLET PO ONE (22:21)
[2023-08-02] MEDS ORDERED: PRED10TA2 PO (22:52)
[2023-08-02 23:22] VITALS: BP 136/90; O2SAT 98
== END 2023-08-02 23:23 | disposition home or self-care (01) ==
LOC: M ED 20:03
DX: J45.901 Unspecified asthma with (acute) exacerbation (principal); R00.0 Tachycardia, unspecified; Z86.79 Personal history of other diseases of the circulatory system; Z91.09 Other allergy status, other than to drugs and biological substances; Z91.018 Allergy to other foods; Z79.1 Long term (current) use of non-steroidal anti-inflammatories (NSAID); Z79.52 Long term (current) use of systemic steroids; Z79.899 Other long term (current) drug therapy
CPT/HCPCS: 71045; 80048; 80076; 82550; 82553; 82803; 83605; 83880; 84145; 84439; 84443; 84484; 85025; 85610; 86140; 87486; 87581; 87633; 87798; 93005; 93041; 94760; 96374; 99284; J2919

== ENCOUNTER → 2023-09-10 | Outpatient (REF) | payer BC ==
[~2023-09-10] MED LIST changes: +ESOM1CAP20 PO; -ESOM1CAP5 PO; +PRED10TA2 PO
== END ==
LOC: M SFHCPLAZ 10:51
PROVIDERS: ATTEND Family Medicine
DX: D50.9 Iron deficiency anemia, unspecified (principal); I50.32 Chronic diastolic (congestive) heart failure; M06.00 Rheumatoid arthritis without rheumatoid factor, unspecified site; E03.9 Hypothyroidism, unspecified; E55.9 Vitamin D deficiency, unspecified; E78.2 Mixed hyperlipidemia

== ENCOUNTER → 2023-09-10 | Outpatient (CLI) | payer BC ==
[2023-09-10 12:53] LABS: BASO # 0.1 10^3/uL (0.0-0.2); BASO % 1.4 % (0.0-1.0); EOS # 0.3 10^3/uL (0.0-0.5); EOS % 3.7 % (0.0-3.0); HEMATOCRIT 40.9 % (36.0-47.0); HEMOGLOBIN 13.6 g/dl (12.0-15.5); LYMPH # 2.1 10^3/uL (1.5-5.0); LYMPH % 25.6 % (24.0-44.0); MEAN CORPUSCULAR HEMOGLOBIN 30.5 pg (27.0-33.0); MEAN CORPUSCULAR HGB CONC 33.3 g/dl (32.0-36.5); MEAN CORPUSCULAR VOLUME 91.7 fl (80.0-96.0); MONO # 0.9 10^3/uL (0.0-0.8); NEUTROPHILS # 4.7 10^3/uL (1.5-8.5); NEUTROPHILS % 57.9 % (36.0-66.0); PLATELET COUNT, AUTOMATED 311 10^3/uL (150-450); RED BLOOD COUNT 4.46 10^6/uL (4.00-5.40)
[2023-09-10 13:01] LABS: ERYTHROCYTE SEDIMENTATION RATE 12 mm/hr (0-30)
[2023-09-10 13:15] LABS: C REACTIVE PROTEIN QUANTITATIV < 0.40 MG/DL (<1.0)
[2023-09-10 13:17] LABS: ALBUMIN 4.1 G/DL (3.2-5.2); ALKALINE PHOSPHATASE 117 U/L (46-116); ALT/SGPT 15 U/L (7.0-40); AST/SGOT 23 U/L (<34); BILIRUBIN,TOTAL 0.4 MG/DL (0.3-1.2); BLOOD UREA NITROGEN 12 MG/DL (9-23); CALCIUM LEVEL 9.7 MG/DL (8.5-10.1); CARBON DIOXIDE LEVEL 33 MMOL/L (20-31); CHLORIDE LEVEL 105 MMOL/L (98-107); CHOLESTEROL LEVEL 229 MG/DL (<200); CHOLESTEROL RISK RATIO 3.15 (<5); CREATININE FOR GFR 0.64 MG/DL (0.55-1.30); GLOMERULAR FILTRATION RATE > 60.0 (>51); GLUCOSE, FASTING 87 MG/DL (60-100); HDL CHOLESTEROL 72.6 MG/DL (>40); MAGNESIUM LEVEL 2.2 MG/DL (1.8-2.4); NON-HDL-C 156.4 MG/DL; POTASSIUM SERUM 3.9 MMOL/L (3.5-5.1); PTH INTACT 141.4 PG/ML (18.5-88.0); SODIUM LEVEL 141 MMOL/L (136-145); TOTAL PROTEIN 6.9 G/DL (5.7-8.2); TRIGLYCERIDES LEVEL 142 MG/DL (<150)
[2023-09-10 13:18] LABS: FERRITIN 142.5 NG/ML (7.3-270.7); FREE T4 0.94 NG/DL (0.89-1.76)
[2023-09-10 13:19] LABS: THYROID STIMULATING HORMONE 2.447 uIU/ML (0.55-4.78)
== END ==
LOC: M PLALAB 11:11
PROVIDERS: ATTEND Family Medicine
DX: M06.00 Rheumatoid arthritis without rheumatoid factor, unspecified site (principal); I50.32 Chronic diastolic (congestive) heart failure; E03.9 Hypothyroidism, unspecified; D50.9 Iron deficiency anemia, unspecified; E78.2 Mixed hyperlipidemia; E55.9 Vitamin D deficiency, unspecified

== ENCOUNTER → 2023-12-19 | Outpatient (CLI) | payer BC ==
[~2023-12-19] MED LIST changes: -FEXO-157 PO; +FEXO-63 PO
== END ==
LOC: M LAB 10:07
PROVIDERS: ATTEND Family Medicine
DX: R73.01 Impaired fasting glucose (principal)

== ENCOUNTER → 2023-12-24 | Outpatient (CLI) | payer BC ==
[2023-12-24 10:27] LABS: BASO # 0.1 10^3/uL (0.0-0.2); BASO % 1.7 % (0.0-1.0); EOS # 0.5 10^3/uL (0.0-0.5); EOS % 7.5 % (0.0-3.0); HEMATOCRIT 42.2 % (36.0-47.0); HEMOGLOBIN 13.9 g/dl (12.0-15.5); LYMPH # 1.8 10^3/uL (1.5-5.0); LYMPH % 30.2 % (24.0-44.0); MEAN CORPUSCULAR HEMOGLOBIN 29.9 pg (27.0-33.0); MEAN CORPUSCULAR HGB CONC 32.9 g/dl (32.0-36.5); MEAN CORPUSCULAR VOLUME 90.8 fl (80.0-96.0); MONO # 0.5 10^3/uL (0.0-0.8); MONO % 8.5 % (2.0-8.0); NEUTROPHILS # 3.1 10^3/uL (1.5-8.5); NEUTROPHILS % 51.8 % (36.0-66.0); PLATELET COUNT, AUTOMATED 312 10^3/uL (150-450); RED BLOOD COUNT 4.65 10^6/uL (4.00-5.40)
[2023-12-24 10:31] LABS: ERYTHROCYTE SEDIMENTATION RATE 12 mm/hr (0-30)
[2023-12-24 11:34] LABS: C REACTIVE PROTEIN QUANTITATIV < 0.40 MG/DL (<1.0)
[2023-12-24 11:36] LABS: ALKALINE PHOSPHATASE 108 U/L (46-116); ALT/SGPT 16 U/L (7.0-40); AST/SGOT 32 U/L (<34); BILIRUBIN,TOTAL 0.7 MG/DL (0.3-1.2); BLOOD UREA NITROGEN 14 MG/DL (9-23); CALCIUM LEVEL 9.6 MG/DL (8.5-10.1); CARBON DIOXIDE LEVEL 30 MMOL/L (20-31); CHLORIDE LEVEL 106 MMOL/L (98-107); CREATININE FOR GFR 0.59 MG/DL (0.55-1.30); GLOMERULAR FILTRATION RATE > 60.0 (>51); GLUCOSE, FASTING 105 MG/DL (60-100); POTASSIUM SERUM 4.4 MMOL/L (3.5-5.1); SODIUM LEVEL 142 MMOL/L (136-145); TOTAL PROTEIN 7.1 G/DL (5.7-8.2)
[2023-12-24 11:38] LABS: FERRITIN 162.2 NG/ML (7.3-270.7)
[2023-12-24 14:48] LABS: FREE T4 1.01 NG/DL (0.89-1.76); THYROID PEROXIDASE ANTIBODY 37 U/ML (<60.0); THYROID STIMULATING HORMONE 1.825 uIU/ML (0.55-4.78)
== END ==
LOC: M LAB 09:35
PROVIDERS: ATTEND Family Medicine
DX: E03.9 Hypothyroidism, unspecified (principal); D50.9 Iron deficiency anemia, unspecified; E78.2 Mixed hyperlipidemia

== ENCOUNTER → 2024-03-03 | Outpatient (CLI) | payer BC ==
[~2024-03-03] MED LIST changes: +ELET40TA PO; +PROP20TA72 PO
== END ==
LOC: M EKG 15:45
PROVIDERS: ATTEND Podiatrist
DX: Z01.818 Encounter for other preprocedural examination (principal); M20.11 Hallux valgus (acquired), right foot; M79.671 Pain in right foot; M20.41 Other hammer toe(s) (acquired), right foot

== ENCOUNTER → 2024-03-03 | Outpatient (CLI) | payer BC ==
[2024-03-03 10:55] LABS: BASO # 0.1 10^3/uL (0.0-0.2); BASO % 1.7 % (0.0-1.0); EOS # 0.4 10^3/uL (0.0-0.5); EOS % 6.3 % (0.0-3.0); HEMATOCRIT 41.2 % (36.0-47.0); HEMOGLOBIN 13.8 g/dl (12.0-15.5); LYMPH # 2.1 10^3/uL (1.5-5.0); LYMPH % 31.4 % (24.0-44.0); MEAN CORPUSCULAR HEMOGLOBIN 30.5 pg (27.0-33.0); MEAN CORPUSCULAR HGB CONC 33.5 g/dl (32.0-36.5); MEAN CORPUSCULAR VOLUME 90.9 fl (80.0-96.0); MONO # 0.6 10^3/uL (0.0-0.8); MONO % 9.7 % (2.0-8.0); NEUTROPHILS # 3.4 10^3/uL (1.5-8.5); NEUTROPHILS % 50.6 % (36.0-66.0); PLATELET COUNT, AUTOMATED 304 10^3/uL (150-450); RED BLOOD COUNT 4.53 10^6/uL (4.00-5.40); WHITE BLOOD COUNT 6.6 10^3/uL (4.0-10.0)
[2024-03-03 11:22] LABS: BLOOD UREA NITROGEN 15 MG/DL (9-23); CALCIUM LEVEL 9.5 MG/DL (8.5-10.1); CARBON DIOXIDE LEVEL 30 MMOL/L (20-31); CHLORIDE LEVEL 106 MMOL/L (98-107); CREATININE FOR GFR 0.62 MG/DL (0.55-1.30); GLOMERULAR FILTRATION RATE > 60.0 (>51); GLUCOSE, FASTING 97 MG/DL (60-100); SODIUM LEVEL 143 MMOL/L (136-145)
== END ==
LOC: M LAB 10:30
PROVIDERS: ATTEND Family Medicine
DX: M20.11 Hallux valgus (acquired), right foot (principal)

== ENCOUNTER 2024-03-06 10:18 | Day surgery (SDC) | payer BC ==
[~2024-03-06] VITALS: Ht 170.2 cm; Wt 88.5 kg
[2024-03-06] MEDS ORDERED: MIDAZOLAM INJ 2MG/2ML VIAL As Ordered ONE (10:56)
[2024-03-06] MEDS ORDERED: propofoL 200 MG/20 ML VIAL As Ordered ONE (10:56)
[2024-03-06] MEDS ORDERED: LIDOCAINE 2% 100MG/5ML SDV (FOR ANES.) As Ordered ONE (10:56)
[2024-03-06] MEDS ORDERED: fentaNYL 100 MCG/2 ML INJECTION As Ordered ONE (10:56)
[2024-03-06] MEDS: NS (Normal Saline) 0.9% 1,000 ML IV SCH (11:23)
[2024-03-06] MEDS ORDERED: fentaNYL 100 MCG/2 ML INJECTION IV PRN (12:35)
[2024-03-06] MEDS ORDERED: HYDROMORPHONE HCL 0.5 MG/ 0.5 ML SYRINGE IV PRN (12:35)
[2024-03-06] MEDS ORDERED: NS (Normal Saline) 0.9% 1,000 ML IV SCH (12:35)
[2024-03-06] MEDS ORDERED: oxyCODONE 5MG TAB PO PRN (12:35)
[2024-03-06] MEDS ORDERED: ONDANSETRON 4MG 2ML VIAL IV PRN (12:35)
[2024-03-06] MEDS: SCOPOLAMINE 1MG TRANSDERMAL PATCH TOP ONE (12:49)
[2024-03-06] MEDS: ceFAZolin SOD 2 GM in IV 1 EA IV ONE (13:08)
[2024-03-06] MEDS: LIDOCAINE 2% MDV 20ML VIAL As Ordered ONE (13:09)
[2024-03-06] MEDS ORDERED: ACETAMINOPHEN 1000MG/100ML IV BAG As Ordered ONE (13:12)
[2024-03-06] MEDS ORDERED: ONDANSETRON 4MG 2ML VIAL As Ordered ONE (13:29)
[2024-03-06] MEDS ORDERED: PHENYLephrine 500MCG 5ML (100MCG/ML) SYRINGE As Ordered ONE (13:37)
[2024-03-06] MEDS: GENTAMICIN SULF 80MG/2ML VIAL As Ordered ONE (13:47)
[2024-03-06] MEDS ORDERED: KETOROLAC 60MG 2ML VIAL As Ordered ONE (14:54)
[2024-03-06 16:00] VITALS: BP 138/80; TEMP 97.5; O2SAT 99
== END 2024-03-06 16:03 | disposition home or self-care (01) ==
LOC: M SDC 10:18
PROVIDERS: ATTEND Podiatrist
DX: M20.11 Hallux valgus (acquired), right foot (principal); M20.41 Other hammer toe(s) (acquired), right foot
CPT/HCPCS: 28285; 28296; 28308; 73630; 76000; 88300; C1713; J0131; J0665; J0690; J1100; J1580; J1885; J2250; J2371; J2405; J3010

== ENCOUNTER → 2024-05-01 | Outpatient (CLI) | payer BC ==
[2024-05-01 14:13] LABS: BASO # 0.1 10^3/uL (0.0-0.2); BASO % 1.3 % (0.0-1.0); EOS # 0.3 10^3/uL (0.0-0.5); EOS % 4.9 % (0.0-3.0); HEMATOCRIT 41.8 % (36.0-47.0); HEMOGLOBIN 13.6 g/dl (12.0-15.5); LYMPH # 2.1 10^3/uL (1.5-5.0); LYMPH % 33.7 % (24.0-44.0); MEAN CORPUSCULAR HEMOGLOBIN 30.4 pg (27.0-33.0); MEAN CORPUSCULAR HGB CONC 32.5 g/dl (32.0-36.5); MEAN CORPUSCULAR VOLUME 93.5 fl (80.0-96.0); MONO # 0.5 10^3/uL (0.0-0.8); MONO % 8.5 % (2.0-8.0); NEUTROPHILS # 3.1 10^3/uL (1.5-8.5); NEUTROPHILS % 51.3 % (36.0-66.0); PLATELET COUNT, AUTOMATED 299 10^3/uL (150-450); RED BLOOD COUNT 4.47 10^6/uL (4.00-5.40); WHITE BLOOD COUNT 6.1 10^3/uL (4.0-10.0)
[2024-05-01 14:46] LABS: ERYTHROCYTE SEDIMENTATION RATE 13 mm/hr (0-30)
[2024-05-01 14:50] LABS: ALKALINE PHOSPHATASE 102 U/L (35-104); ALT/SGPT 14 U/L (7.0-40); AST/SGOT 26 U/L (<34); BILIRUBIN,TOTAL 0.6 MG/DL (0.3-1.2); BLOOD UREA NITROGEN 14 MG/DL (9-23); CALCIUM LEVEL 9.7 MG/DL (8.5-10.1); CARBON DIOXIDE LEVEL 30 MMOL/L (20-31); CHLORIDE LEVEL 109 MMOL/L (98-107); CHOLESTEROL LEVEL 264 MG/DL (<200); CHOLESTEROL RISK RATIO 3.24 (<5); CREATININE FOR GFR 0.63 MG/DL (0.55-1.30); GLOMERULAR FILTRATION RATE > 60.0 (>51); GLUCOSE, FASTING 96 MG/DL (60-100); HDL CHOLESTEROL 81.4 MG/DL (>40); MAGNESIUM LEVEL 2.4 MG/DL (1.8-2.4); NON-HDL-C 182.6 MG/DL; POTASSIUM SERUM 4.1 MMOL/L (3.5-5.1); PTH INTACT 63.7 PG/ML (18.5-88.0); SODIUM LEVEL 140 MMOL/L (136-145); THYROID STIMULATING HORMONE 2.507 uIU/ML (0.55-4.78); TRIGLYCERIDES LEVEL 118 MG/DL (<150)
[2024-05-01 14:51] LABS: FREE T4 1.06 NG/DL (0.89-1.76); TOTAL 25(OH) VITAMIN D 32.6 NG/ML (20.0-100.0)
[2024-05-01 14:52] LABS: VITAMIN B12 LEVEL 719 PG/ML (211-911)
[2024-05-01 14:56] LABS: HEMOGLOBIN A1c 4.8 % (4.0-6.0)
[2024-05-01 19:55] LABS: HEMATOCRIT 41.8 % (36.0-47.0)
== END ==
LOC: M PLALAB 10:37
PROVIDERS: ATTEND Family Medicine
DX: I50.32 Chronic diastolic (congestive) heart failure (principal)

== ENCOUNTER → 2024-09-11 | Outpatient (CLI) | payer BC ==
[~2024-09-11] MED LIST changes: +TOPI-256 PO; -TOPI25TA10 PO
[2024-09-11 15:55] LABS: BASO # 0.1 10^3/uL (0.0-0.2); BASO % 1.8 % (0.0-1.0); EOS # 0.4 10^3/uL (0.0-0.5); EOS % 5.5 % (0.0-3.0); HEMATOCRIT 42.9 % (36.0-47.0); HEMOGLOBIN 14.1 g/dl (12.0-15.5); LYMPH # 1.6 10^3/uL (1.5-5.0); LYMPH % 21.1 % (24.0-44.0); MEAN CORPUSCULAR HEMOGLOBIN 30.9 pg (27.0-33.0); MEAN CORPUSCULAR HGB CONC 32.9 g/dl (32.0-36.5); MEAN CORPUSCULAR VOLUME 93.9 fl (80.0-96.0); MONO # 0.7 10^3/uL (0.0-0.8); MONO % 9.2 % (2.0-8.0); NEUTROPHILS # 4.6 10^3/uL (1.5-8.5); PLATELET COUNT, AUTOMATED 333 10^3/uL (150-450); RED BLOOD COUNT 4.57 10^6/uL (4.00-5.40); WHITE BLOOD COUNT 7.4 10^3/uL (4.0-10.0)
[2024-09-11 16:01] LABS: HEMATOCRIT 42.4 % (36.0-47.0)
[2024-09-11 16:05] LABS: HEMOGLOBIN A1c 4.8 % (4.0-6.0)
[2024-09-11 16:07] LABS: ALBUMIN 4.2 G/DL (3.2-5.2); ALKALINE PHOSPHATASE 85 U/L (35-104); ALT/SGPT 13 U/L (7.0-40); AST/SGOT 34 U/L (<34); BILIRUBIN,TOTAL 0.6 MG/DL (0.3-1.2); BLOOD UREA NITROGEN 17 MG/DL (9-23); C REACTIVE PROTEIN QUANTITATIV < 0.50 MG/DL (<1.0); CALCIUM LEVEL 9.1 MG/DL (8.5-10.1); CARBON DIOXIDE LEVEL 29 MMOL/L (20-31); CHLORIDE LEVEL 106 MMOL/L (98-107); CHOLESTEROL LEVEL 234 MG/DL (<200); CREATININE FOR GFR 0.64 MG/DL (0.55-1.30); GLOMERULAR FILTRATION RATE > 90.0 (>51); GLUCOSE, FASTING 106 MG/DL (60-100); HDL CHOLESTEROL 101.7 MG/DL (>40); LDL CHOLESTEROL 119.9 MG/DL (<100); MAGNESIUM LEVEL 2.1 MG/DL (1.8-2.4); NON-HDL-C 132.3 MG/DL; POTASSIUM SERUM 3.7 MMOL/L (3.5-5.1); PTH INTACT 146.1 PG/ML (18.5-88.0); SODIUM LEVEL 144 MMOL/L (136-145); THYROID STIMULATING HORMONE 2.115 uIU/ML (0.55-4.78); TOTAL 25(OH) VITAMIN D 40.4 NG/ML (20.0-100.0); TOTAL PROTEIN 6.9 G/DL (5.7-8.2); TRIGLYCERIDES LEVEL 62 MG/DL (<150)
[2024-09-11 16:09] LABS: FREE T4 0.88 NG/DL (0.89-1.76); VITAMIN B12 LEVEL 661 PG/ML (211-911)
[2024-09-11 16:16] LABS: ERYTHROCYTE SEDIMENTATION RATE 9 mm/hr (0-30)
[2024-09-11 16:18] LABS: CREATININE, URINE 202.3 MG/DL; MAU/CREAT RATIO 6.4 MCG/MG (0.0-30.0)
[2024-09-11 16:36] LABS: FERRITIN 94.4 NG/ML (7.3-270.7)
[2024-09-14 10:48] LABS: INSULIN LEVEL 2.8 uIU/mL (<=18.4)
[2024-09-23 10:49] LABS: VITAMIN B7 (BIOTIN) 2303.8 pg/mL (221.0-3004.0)
== END ==
LOC: M PLALAB 11:56
PROVIDERS: ATTEND Family Medicine
DX: D50.9 Iron deficiency anemia, unspecified (principal); I50.32 Chronic diastolic (congestive) heart failure; E03.9 Hypothyroidism, unspecified; E78.2 Mixed hyperlipidemia; E55.9 Vitamin D deficiency, unspecified; M06.00 Rheumatoid arthritis without rheumatoid factor, unspecified site; E11.9 Type 2 diabetes mellitus without complications

== ENCOUNTER → 2024-10-20 | Outpatient (REF) | payer BC | LOC: M SFHCPLAZ 10:12 | PROVIDERS: ATTEND Family Medicine | DX: D48.9 Neoplasm of uncertain behavior, unspecified (principal) ==

== ENCOUNTER → 2025-01-01 | Outpatient (CLI) | payer BC ==
[2025-01-01 10:24] LABS: BASO # 0.1 10^3/uL (0.0-0.2); BASO % 2.0 % (0.0-1.0); EOS # 0.4 10^3/uL (0.0-0.5); EOS % 7.1 % (0.0-3.0); LYMPH # 1.5 10^3/uL (1.5-5.0); LYMPH % 28.8 % (24.0-44.0); MONO # 0.5 10^3/uL (0.0-0.8); MONO % 9.4 % (2.0-8.0); NEUTROPHILS # 2.7 10^3/uL (1.5-8.5); NEUTROPHILS % 52.5 % (36.0-66.0); PLATELET COUNT, AUTOMATED 297 10^3/uL (150-450)
[2025-01-01 10:37] LABS: ERYTHROCYTE SEDIMENTATION RATE 13 mm/hr (0-30); ESTIMATED AVERAGE GLUCOSE 103.0 MG/DL (60-110)
[2025-01-01 10:55] LABS: C REACTIVE PROTEIN QUANTITATIV < 0.50 MG/DL (<1.0)
[2025-01-01 10:59] LABS: ALT/SGPT 12 U/L (7.0-40); AST/SGOT 27 U/L (<34); CALCIUM LEVEL 9.4 MG/DL (8.5-10.1); CARBON DIOXIDE LEVEL 31 MMOL/L (20-31); CHLORIDE LEVEL 105 MMOL/L (98-107); CHOLESTEROL LEVEL 249 MG/DL (<200); CHOLESTEROL RISK RATIO 2.90 (<5); CREATININE FOR GFR 0.62 MG/DL (0.55-1.30); FREE T4 0.99 NG/DL (0.89-1.76); GLOMERULAR FILTRATION RATE > 90.0 (>51); LDL CHOLESTEROL 138.8 MG/DL (<100); MAGNESIUM LEVEL 2.2 MG/DL (1.8-2.4); NON-HDL-C 163.4 MG/DL; POTASSIUM SERUM 4.0 MMOL/L (3.5-5.1); PTH INTACT 107.9 PG/ML (18.5-88.0); SODIUM LEVEL 147 MMOL/L (136-145); TOTAL 25(OH) VITAMIN D 31.7 NG/ML (20.0-100.0); TRIGLYCERIDES LEVEL 123 MG/DL (<150)
[2025-01-01 11:10] LABS: CREATININE, URINE 177.1 MG/DL; MALB URINE SIEMENS 6.0 MG/L; MAU/CREAT RATIO 3.3 MCG/MG (0.0-30.0)
[2025-01-04 11:48] LABS: INSULIN LEVEL 6.0 uIU/mL (<=18.4)
== END ==
LOC: M PLALAB 08:43
PROVIDERS: ATTEND Family Medicine
DX: E55.9 Vitamin D deficiency, unspecified (principal); M06.00 Rheumatoid arthritis without rheumatoid factor, unspecified site; D50.9 Iron deficiency anemia, unspecified; E11.9 Type 2 diabetes mellitus without complications; I50.32 Chronic diastolic (congestive) heart failure; Z98.84 Bariatric surgery status; E78.2 Mixed hyperlipidemia

== ENCOUNTER → 2025-01-14 | Outpatient (CLI) | payer BC ==
[~2025-01-14] VITALS: Ht 170.2 cm; Wt 86.4 kg
[~2025-01-14] MED LIST changes: +ALBUTEROL SULFATE 2.5 MG/0.5 ML INH CONCENTRATE NEB SOLN INH PRN; +EPINEPHrine INJ 1 MG/ML 1ML AMP IM PRN; +diphenhydrAMINE 50 MG/ML VIAL IV PRN
[2025-01-14 11:50] VITALS: BP 131/84; O2SAT 99
[2025-01-14] MEDS: IRON SUCROSE 500 MG in NS 250 ML IV ONE (12:52)
[2025-01-14 14:00] VITALS: BP 133/87; O2SAT 99
[2025-01-14 15:00] VITALS: BP 130/84; O2SAT 100
[2025-01-14 16:19] VITALS: BP 138/82; O2SAT 99
[2025-01-14 17:02] VITALS: BP 164/96; O2SAT 97
== END ==
LOC: M INFU 11:40
PROVIDERS: ATTEND Family Medicine
DX: D50.9 Iron deficiency anemia, unspecified (principal); Z88.8 Allergy status to other drugs, medicaments and biological substances; Z91.018 Allergy to other foods
CPT/HCPCS: 96365; 96366; J1756

== ENCOUNTER → 2025-01-14 | Outpatient (CLI) | payer BC ==
[~2025-01-14] MED LIST changes: -ALBUTEROL SULFATE 2.5 MG/0.5 ML INH CONCENTRATE NEB SOLN INH PRN; -EPINEPHrine INJ 1 MG/ML 1ML AMP IM PRN; -diphenhydrAMINE 50 MG/ML VIAL IV PRN
== END ==
LOC: M WHC 09:06
PROVIDERS: ATTEND Family Medicine
DX: Z12.39 Encounter for other screening for malignant neoplasm of breast (principal); Z53.9 Procedure and treatment not carried out, unspecified reason

== ENCOUNTER → 2025-01-21 | Outpatient (CLI) | payer BC | LOC: M LAB 07:52 | PROVIDERS: ATTEND Family Medicine | DX: E11.9 Type 2 diabetes mellitus without complications (principal) ==

== ENCOUNTER → 2025-01-22 | Outpatient (CLI) | payer BC | LOC: M WHC 06:57 | PROVIDERS: ATTEND Family Medicine | DX: Z12.31 Encounter for screening mammogram for malignant neoplasm of breast (principal) ==